=== PATIENT | female | born 1940 | race Caucasian/White ===

== ENCOUNTER 2017-01-02 20:41 | Emergency (ER) | payer MEDICARE, OTHER ==
[2017-01-02 20:51] VITALS: BP 132/89
[2017-01-02] MEDS ORDERED: Bacitracin/Neomycin/Polymyxin B Oint 0.9 GM U/D Packet ONE (21:17)
--- NOTE | 2017-01-02 21:27 | EDM.PDOC ---
ED HPI GENERAL MEDICAL PROBLEM - General Stated Complaint: S/P FALL, RT SHOULDER AND FOREHEAD PAIN Time Seen by Provider: 01/02/17 21:09 Source of Information: Reports: Patient History Limitations: Reports: No Limitations - History of Present Illness INITIAL COMMENTS - FREE TEXT/NARRATIVE: Patient presents with right shoulder pain and forehead abrasion after falling at home. She tells me she was had gotten up from sitting and was walking into her kitchen when she stooped to apple picker a string lying on the floor. She fell forward and hit her head and right shoulder on the floor. The shoulder is all that is bothering her right now. She denies any neck pain, headache, vomiting, vision changes or LOC. She takes coumadin for A Fib and had INR checked yesterday at 2.5. 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 - Related Data Allergies Allergy/AdvReac Type Severity Reaction Status Date / Time No Known Drug Allergies Allergy Cannot Verified 01/02/17 20:44 Remember Home Meds: Home Meds Bumetanide [Bumetanide] 0.5 mg PO BID 01/02/17 [History] Carvedilol [Carvedilol] 9.375 mg PO BID 01/02/17 [History] Ecalciferol 600-500 Mg-Units 1 tab PO DAILY 01/02/17 [History] Insulin Glarg,Human.Rec.Analog [LantUS Solostar] 01/02/17 [History] Lisinopril [Lisinopril] 5 mg PO DAILY 01/02/17 [History] Metolazone [Metolazone] 01/02/17 [History] Omeprazole [Omeprazole] 20 mg PO DAILY 01/02/17 [History] Simvastatin [Zocor] 40 mg PO BEDTIME 01/02/17 [History] Warfarin Sodium [Warfarin Sodium] 01/02/17 [History] Review of Systems - Review of Systems Review Of Systems: See Below Constitutional: Denies: Fever, Weakness Eyes: Denies: Vision Change Ears: Denies: Dizziness Nose: Denies: Epistaxis, Bloody Discharge, Serosanguinous Discharge Mouth/Throat: Denies: Bleeding, Muffled Voice Respiratory: Denies: Shortness of Breath, Cough Cardiovascular: Reports: Irregular Heart Rate. Denies: Chest Pain, Lightheadedness, Syncope GI/Abdominal: Denies: Abdominal Pain, Nausea, Vomiting Genitourinary: Denies: Incontinence Musculoskeletal: Reports: Shoulder Pain. Denies: Neck Pain, Arm Pain, Back Pain , Leg Pain, Foot Pain Skin: Denies: Cyanosis, Jaundice, Mottled, Pallor, Diaphoresis Neurological: Denies: Confusion, Dizziness, Headache, Seizure, Syncope, Trouble Speaking Psychiatric: Denies: Confusion ED EXAM, GENERAL - Physical Exam Exam: See Below Exam Limited By: No Limitations General Appearance: Alert, WD/WN, No Apparent Distress Eye Exam: Bilateral Eye: EOMI, Normal Inspection, PERRL Ears: Normal External Exam, Normal Canal, Hearing Grossly Normal, Normal TMs Nose: Normal Inspection, No Blood. No: Nasal Deformity Throat/Mouth: Normal Inspection, Normal Lips, Normal Teeth, Normal Oropharynx, Normal Voice, No Airway Compromise Head: Normocephalic, Other (mild abrasion on forehead just superior to right eyebrow). No: Facial Swelling Neck: Normal Inspection, Supple, Non-Tender, Full Range of Motion. No: Tender Lateral, Tender Midline Respiratory/Chest: No Respiratory Distress, Lungs Clear, Normal Breath Sounds Extremities: Other (Extremities all negative except for right shoulder. Contusion and small skin tear of superolateral right shoulder with mild ecchymosis. No evidence of dislocation or deformity. Painful to ROM of humerus more than about 10 degrees. No clavicle tenderness or deformity. Elbow has full pain-free ROM with full pronation/supination of wrist.) Neurological: Alert, Oriented, CN II-XII Intact, Normal Cognition, No Motor/ Sensory Deficits Psychiatric: Normal Affect, Normal Mood Skin Exam: Warm, Dry, Intact, Normal Color, No Rash Course - Vital Signs Last Recorded V/S: Last Vital Signs Temp 97 F 01/02/17 20:45 Pulse 92 01/02/17 20:45 Resp 20 01/02/17 20:45 BP 132/89 01/02/17 20:45 Pulse Ox 98 01/02/17 20:45 - Orders/Labs/Meds Orders: Active Orders 24 hr Category Date Time Status Head wo Cont [CT] Stat Exams 01/02/17 20:46 Ordered Shoulder Comp Rt [CR] Stat Exams 01/02/17 20:45 Ordered Meds: Medications Discontinued Medications Generic Name Dose Route Start Last Admin Trade Name Freq PRN Reason Stop Dose Admin Neomycin/Polymyxin/Bacitracin Confirm 01/02/17 21:17 Triple Antibiotic Oint Administered 01/02/17 21:18 Dose 1 each .ROUTE .STK-MED ONE - Re-Assessments/Exams Free Text/Narrative Re-Assessment/Exam: 01/02/17 22:[address] is negative. Xray shows a sub-glenoid scapular fracture with the fracture line running into the scapular body. This appears quite stable and we placed patient's right arm in a sling and instructed her to see orthopedics in 1 -2 days. She can call her PCP tomorrow and decide if she wants to go with [facility]. She does want to go to [place]. Discussed findings and plan with patient and she is discharged in stable condition. Departure - Departure Time of Disposition: 22:23 Disposition: Home, Self-Care 01 Condition: Good Clinical Impression: Closed right scapular fracture Qualifiers: Encounter type: initial encounter Scapula location: unspecified part of scapula Qualified Code(s): S42.101A - Fracture of unspecified part of scapula, right shoulder, initial encounter for closed fracture Contusion of forehead Qualifiers: Encounter type: initial encounter Qualified Code(s): S00.83XA - Contusion of other part of head, initial encounter - Discharge Information Referrals: Mag Holland, WATER QUALITY TESTER [Primary Care Provider] - Additional Instructions: 1. Call your PCP tomorrow to discuss with her who to see for orthopedics. In [place] there is the option of [facility] or [facility]. The [facility]ist does come to [place] 1-2x/month for clinic. 2. Keep your arm in the sling except for showers. 3. Follow up with orthopedics in 1-2 days. 4. Use Tylenol 500 mg every hours as needed for pain. - My Orders Last 24 Hours: My Active Orders 01/02/17 20:45 Shoulder Comp Rt [CR] Stat 01/02/17 20:46 Head wo Cont [CT] Stat - Assessment/Plan Last 24 Hours: My Active Orders 01/02/17 20:45 Shoulder Comp Rt [CR] Stat 01/02/17 20:46 Head wo Cont [CT] Stat
== END 2017-01-02 22:35 | disposition home or self-care (01) ==
LOC: KA.ED 20:41
DX: S42.141A Displaced fracture of glenoid cavity of scapula, right shoulder, initial encounter for closed fracture (principal); S42.111A Displaced fracture of body of scapula, right shoulder, initial encounter for closed fracture; S00.83XA Contusion of other part of head, initial encounter; I48.91 Unspecified atrial fibrillation; Z79.4 Long term (current) use of insulin; W22.01XA Walked into wall, initial encounter; Y92.000 Kitchen of unspecified non-institutional (private) residence as the place of occurrence of the external cause
CPT/HCPCS: 70450; 73030-RT; 99284

== ENCOUNTER 2020-02-14 20:21 | Emergency (ER) | payer MEDICARE, OTHER ==
--- NOTE | 2020-02-14 21:21 | EDM.PDOC ---
ED HPI GENERAL MEDICAL PROBLEM - General Chief Complaint: General Stated Complaint: RIGHT SIDED WEAKNESS Time Seen by Provider: 02/14/20 21:00 Source of Information: Reports: Patient, EMS History Limitations: Reports: No Limitations - History of Present Illness INITIAL COMMENTS - FREE TEXT/NARRATIVE: 79-year-old female presents emergency room due to her sliding out of her chair earlier this evening. She was on the floor for at least 30 minutes possibly up to 45 minutes. EMS was called as she was unable to get up with the help of her . She denies any significant pain. She has no aphasic symptoms no difficulty with speech no weakness in her upper extremities. When she stood up she had some difficulty with her ambulation on her right leg likely due from the time that she was laying in on the floor. She denies any current numbness or tingling in her leg no back pain or weakness no history of spinal stenosis complaints. No loss of bowel or bladder control. It was recommended that she be brought in for further evaluation. On exam she is alert and cooperative she answers all questions appropriately there is no aphasic symptoms. I examined her lower extremities and did a gentle roll sign but no pain or discomfort of her right hip or left hip. She has no pelvic pain I was able to set her up in the nursing staff walked her to the bathroom without difficulty. She does not feel like she is unbalanced or dizzy. Onset: Today Onset Date: 02/14/20 Onset Time: 18:45 Duration: Resolved Prior to Arrival Location: Reports: Lower Extremity, Right, Generalized Severity: Mild Improves with: Reports: Rest Worsens with: Reports: None Associated Symptoms: Reports: No Other Symptoms - Related Data Allergies Allergy/AdvReac Type Severity Reaction Status Date / Time No Known Drug Allergies Allergy Cannot Verified 02/14/20 21:01 Remember Home Meds: Home Meds Bumetanide 1 mg PO BID 01/02/17 [History] Insulin Glarg,Human.Rec.Analog [LantUS Solostar] 34 units SQ BEDTIME 01/02/17 [History] Omeprazole 20 mg PO DAILY 01/02/17 [History] Simvastatin [Zocor] 40 mg PO BEDTIME 01/02/17 [History] Warfarin Sodium 2.5 mg PO ASDIRECTED 01/02/17 [History] carvediloL [Carvedilol] 9.375 mg PO BID 01/02/17 [History] metFORMIN HCl [Metformin HCl] 1,000 mg PO DAILY 01/02/17 [History] metOLazone [Metolazone] 1.25 mg PO ASDIRECTED 01/02/17 [History] Calcium Carbonate/Vitamin D3 [Calcium 600-Vit D3 500 Softgel] 1 tab PO DAILY 03/08/18 [History] Cyanocobalamin (Vitamin B-12) [B-12] 1,000 mcg PO Q48H 03/08/18 [History] Ferrous Fumarate/Vitamin C [Vitron-C] 1 tab PO Q48H 03/08/18 [History] Letrozole [Femara] 2.5 mg PO DAILY 03/08/18 [History] allopurinoL [Zyloprim] 200 mg PO DAILY 03/08/18 [History] Potassium Chloride 10 meq PO DAILY 04/08/18 [History] calcitrioL [Calcitriol] 0.25 mcg PO Q48H 04/08/18 [History] Past Medical History HEENT History: Reports: Cataract, Impaired Vision Cardiovascular History: Reports: Afib, Heart Failure, High Cholesterol, Hypertension, SOB on Exertion Respiratory History: Reports: Other (See Below) Other Respiratory History: SOB with going up and down stairs Gastrointestinal History: Reports: GERD Genitourinary History: Reports: Other (See Below) Other Genitourinary History: dribbling 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: Endocrine/Metabolic History: Reports: IDDM, Obesity/BMI 30+ Hematologic History: Reports: B12 Deficiency Oncologic (Cancer) History: Reports: Breast, Other (See Below) Other Oncologic History: lumpectomy with radiation - Infectious Disease History Infectious Disease History: Reports: Chicken Pox, Measles - Past Surgical History HEENT Surgical History: Reports: Cataract Surgery Cardiovascular Surgical History: Reports: None Respiratory Surgical History: Reports: None GI Surgical History: Reports: Colonoscopy Female Surgical History: Reports: Breast Biopsy, Hysterectomy Endocrine Surgical History: Reports: None Oncologic Surgical History: Reports: Lumpectomy Social & Family History - Caffeine Use Caffeine Use: Reports: Coffee ED ROS GENERAL - Review of Systems Review Of Systems: See Below Constitutional: Reports: No Symptoms HEENT: Reports: No Symptoms Respiratory: Reports: No Symptoms Cardiovascular: Reports: No Symptoms Endocrine: Reports: No Symptoms GI/Abdominal: Reports: No Symptoms : Reports: No Symptoms Musculoskeletal: Reports: No Symptoms Skin: Reports: No Symptoms Neurological: Reports: No Symptoms Psychiatric: Reports: No Symptoms Hematologic/Lymphatic: Reports: No Symptoms Immunologic: Reports: No Symptoms ED EXAM, GENERAL - Physical Exam Exam: See Below Exam Limited By: No Limitations General Appearance: Alert, WD/WN, No Apparent Distress, Obese Eye Exam: Bilateral Eye: EOMI, PERRL (equal) Ears: Hearing Grossly Normal Nose: Normal Inspection Throat/Mouth: Normal Inspection, Normal Oropharynx, Normal Voice, No Airway Compromise Head: Atraumatic, Normocephalic Neck: Normal Inspection, Supple, Non-Tender, Full Range of Motion Respiratory/Chest: No Respiratory Distress, Lungs Clear, Normal Breath Sounds, No Accessory Muscle Use Cardiovascular: Normal Peripheral Pulses, Regular Rate, Rhythm Peripheral Pulses: 1+: Dorsalis Pedis (L), Dorsalis Pedis (R) GI/Abdominal: Soft, Non-Tender Back Exam: Normal Inspection, Full Range of Motion Extremities: Normal Inspection, Normal Range of Motion, Non-Tender, Normal Capillary Refill Neurological: Alert, Oriented, Normal Cognition, Normal Gait, No Motor/Sensory Deficits Psychiatric: Normal Affect, Normal Mood Skin Exam: Warm, Dry, Intact, Normal Color, No Rash Lymphatic: No Adenopathy Course - Vital Signs Last Recorded V/S: Last Vital Signs Temp 97.9 F 02/14/20 20:26 Pulse 81 02/14/20 20:26 Resp 21 H 02/14/20 20:26 BP 131/61 02/14/20 20:26 Pulse Ox 93 L 02/14/20 20:26 - Re-Assessments/Exams Free Text/Narrative Re-Assessment/Exam: 02/14/20 21:22 Was able to ambulate to the bathroom with standby assistance of 2. She reported no weakness no imbalance problems no difficulty with her walking. She was comfortable and steady Departure - Departure Time of Disposition: 21:23 Disposition: Home, Self-Care 01 Condition: Good Clinical Impression: Weakness of right leg - Discharge Information Instructions: Weakness, [id number] Referrals: Maggie Holland ASSISTANT PRESS OPERATOR [Primary Care Provider] - Forms: ED Department Discharge Additional Instructions: 1. Activities as tolerated. 2. Follow-up with your primary care for routine checkup Sepsis Event Note (ED) - Evaluation Sepsis Screening Result: No Definite Risk - Focused Exam Vital Signs: Vital Signs Temp Pulse Resp BP Pulse Ox 02/14/20 20:26 97.9 F 81 21 H 131/61 93 L - Assessment/Plan Assessment:: His weakness in right leg after shortening length of him being on the floor prior to being helped up. Weakness is now resolved Plan: 1. Activities as tolerated. 2. Follow-up with your primary care for routine checkup
[2020-02-14 22:22] VITALS: BP 134/68; PULSE 109
== END 2020-02-14 21:25 | disposition home or self-care (01) ==
LOC: KA.ED 20:21
DX: R53.1 Weakness (principal); I11.0 Hypertensive heart disease with heart failure; I50.9 Heart failure, unspecified; I48.91 Unspecified atrial fibrillation; K21.9 Gastro-esophageal reflux disease without esophagitis; E66.9 Obesity, unspecified; E11.9 Type 2 diabetes mellitus without complications; Z79.4 Long term (current) use of insulin; Z90.710 Acquired absence of both cervix and uterus; Z79.899 Other long term (current) drug therapy
CPT/HCPCS: 99284; 99285

== ENCOUNTER 2020-03-29 20:45 | Inpatient (IN) | payer MEDICARE, OTHER ==
--- NOTE | 2020-03-29 21:00 | EDM.PDOC ---
ED HPI GENERAL MEDICAL PROBLEM - General Chief Complaint: General Stated Complaint: weakness, numb legs/feet, SOB Time Seen by Provider: 03/29/20 20:46 Source of Information: Reports: Patient, EMS - History of Present Illness INITIAL COMMENTS - FREE TEXT/NARRATIVE: Alona, 79-year-old female, presents via ambulance tonight after she called secondary of breathing issues as well as weakness. She was notified today of negative COVID-19 testing with result finalizing on the . She denies any activity, intake, nor missing any medications that may have precipitated her rapid heart rate. She denies chest pain but states it is more difficult to get her breath and she does realize her heart is beating fast. She states this is happened in the past but this is a different sensation at this time. She has had fevers at home as well as fever last week that precipitated the COVID-19 test. Onset: Today, Sudden - Related Data Allergies Allergy/AdvReac Type Severity Reaction Status Date / Time No Known Drug Allergies Allergy Cannot Verified 03/29/20 23:05 Remember Home Meds: Home Meds Bumetanide 1 mg PO ASDIRECTED 01/02/17 [History] Omeprazole 20 mg PO DAILY 01/02/17 [History] Simvastatin [Zocor] 40 mg PO BEDTIME 01/02/17 [History] Warfarin Sodium 2.5 mg PO ASDIRECTED 01/02/17 [History] carvediloL [Carvedilol] 9.375 mg PO BIDMEALS 01/02/17 [History] metOLazone [Metolazone] 1.25 mg PO ASDIRECTED 01/02/17 [History] Calcium Carbonate/Vitamin D3 [Calcium 600-Vit D3 500 Softgel] 1 tab PO DAILY 03/08/18 [History] Cyanocobalamin (Vitamin B-12) [B-12] 1,000 mcg PO Q48H 03/08/18 [History] Ferrous Fumarate/Vitamin C [Vitron-C] 1 tab PO Q48H 03/08/18 [History] allopurinoL [Zyloprim] 200 mg PO DAILY 03/08/18 [History] Insulin Glargine,Hum.Rec.Anlog [Basaglar Kwikpen U-100] 26 units SQ BEDTIME 02/14/20 [History] metFORMIN [Glucophage XR] 1,500 mg PO DAILY 02/14/20 [History] Ferrous Sulfate [Ferosul] 325 mg PO BID 03/29/20 [History] Past Medical History HEENT History: Reports: Cataract, Impaired Vision Cardiovascular History: Reports: Afib, Heart Failure, High Cholesterol, Hypertension, SOB on Exertion Respiratory History: Reports: Other (See Below) Other Respiratory History: SOB with going up and down stairs Gastrointestinal History: Reports: GERD Genitourinary History: Reports: Other (See Below) Other Genitourinary History: dribbling 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: Endocrine/Metabolic History: Reports: IDDM, Obesity/BMI 30+ Hematologic History: Reports: B12 Deficiency Oncologic (Cancer) History: Reports: Breast, Other (See Below) Other Oncologic History: lumpectomy with radiation - Infectious Disease History Infectious Disease History: Reports: Chicken Pox, Measles - Past Surgical History HEENT Surgical History: Reports: Cataract Surgery Cardiovascular Surgical History: Reports: None Respiratory Surgical History: Reports: None GI Surgical History: Reports: Colonoscopy Female Surgical History: Reports: Breast Biopsy, Hysterectomy Endocrine Surgical History: Reports: None Oncologic Surgical History: Reports: Lumpectomy - Past Imaging History Past Imaging History: Reports: Cardiac Echo, Xray Social & Family History - Family History Family Medical History: No Pertinent Family History - Caffeine Use Caffeine Use: Reports: Coffee ED ROS GENERAL - Review of Systems Review Of Systems: Comprehensive ROS is negative, except as noted in HPI. ED EXAM, GENERAL - Physical Exam Exam: See Below Free Text/Narrative:: Alert, oriented, in no distress visiting freely but speaks of difficulty catching her breath. Heart rate via monitor in the 150s with radial pulse correlating on most beats. HEENT is negative discharge or deformity. PERRLA no icterus no injection. [place] moist mucous membranes Neck soft supple no lymphadenopathy no JVD. Breath sounds are diminished bases with no wheezes no crackles noted. Cardiac is tachycardic, I do not appreciate any murmur, consistent with atrial fibrillation with RVR. Abdomen is soft bowel sounds are present. There is +1 edema to the lower extremities skin is warm and dry she moves her extremities upon command. There is no tenderness to the calfs or legs. #1 Interpretation EKG Date: 03/29/20 Time: 21:03 Rhythm: A-Fib Rate (Beats/Min): 166 QRS: RBBB ST-T: Normal QT: Normal Comparison: Change From Previous EKG (RVR) #2 Interpretation EKG Date: 03/29/20 Time: 21:42 Rhythm: A-Fib Rate (Beats/Min): 118 P-Wave: Absent QRS: RBBB ST-T: Normal QT: Normal Comparison: Change From Previous EKG (rate has slowed after cardizem) Course - Vital Signs Last Recorded V/S: Last Vital Signs Temp 39.6 C H 03/29/20 20:56 Pulse 180 H 03/29/20 20:55 Resp 26 H 03/29/20 20:55 BP 123/68 03/29/20 20:55 Pulse Ox 91 L 03/29/20 20:55 - Orders/Labs/Meds Orders: Active Orders 24 hr Category Date Time Status EKG Documentation Completion [RC] ASDIRECTED Care 03/29/20 20:58 Active EKG Documentation Completion [RC] ASDIRECTED Care 03/29/20 21:38 Ordered Peripheral IV Care [RC] . DIRECTED Care 03/29/20 21:11 Active Chest 1V Frontal [CR] Stat Exams 03/29/20 20:57 Ordered Chest w Cont [CT] Stat Exams 03/29/20 22:25 Ordered CORONAVIRUS COVID-19 RAPID [MOLEC] Stat Lab 03/29/20 23:03 Ordered CULTURE BLOOD [BC] Stat Lab 03/29/20 20:58 Ordered CULTURE BLOOD [BC] Stat Lab 03/29/20 20:58 Ordered Diltiazem 125 MG in NS 125 ML @ 5 MG/HR (100ml) Med 03/29/20 23:00 Ordered Diltiazem 125 mg Sodium Chloride 0.9% [Normal Saline] 100 ml IV TITRATE Sodium Chloride 0.9% [Normal Saline] 100 ml Med 03/29/20 23:15 Active IV ASDIRECTED Sodium Chloride 0.9% [Saline Flush] Med 03/29/20 21:11 Active 10 ml FLUSH Q8HR PRN Blood Culture x2 Reflex Set [OM.PC] Stat Oth 03/29/20 20:58 Ordered Peripheral IV Insertion Adult [OM.PC] Routine Oth 03/29/20 21:11 Ordered Code Status [Resuscitation Status] Stat Resus Stat 03/29/20 21:00 Ordered EKG 12 Lead [EK] Urgent Ther 03/29/20 20:57 Ordered EKG 12 Lead [EK] Urgent Ther 03/29/20 21:37 Ordered Medication Orders Diltiazem HCl 125 mg/ Sodium (Chloride) 125 mls @ 5 mls/hr IV TITRATE KIT Last Admin: 03/29/20 23:33 Dose: 5 mg/hr, 5 mls/hr Documented by: DAVID Sodium Chloride (Normal Saline) 100 mls @ 200 mls/hr IV ASDIRECTED KIT Last Admin: 03/29/20 23:00 Dose: 200 mls/hr Documented by: YVON Sodium Chloride (Saline Flush) 10 ml FLUSH Q8HR PRN PRN Reason: keep vein open Last Admin: 03/29/20 21:15 Dose: 10 ml Documented by: DAVID Labs: Laboratory Tests 03/29/20 03/29/20 03/29/20 Range/Units 21:15 21:15 21:15 WBC (5.00-10.00) 10^3/uL RBC (3.80-5.50) 10^6/uL Hgb (12.0-16.0) g/dL Hct (37.0-47.0) % MCV (82.0-92.0) fL MCH (27.0-31.0) pg MCHC (32.0-36.0) g/dL RDW (11.5-14.5) % Plt Count (150-400) 10^3/uL MPV (7.4-10.4) fL Add Manual Diff Neutrophils % (Manual) (50-70) % Band Neutrophils % (4-12) % Lymphocytes % (Manual) (20-40) % Monocytes % (Manual) (2-8) % Absolute Neutrophils Band Neutrophils # Lymphocytes # (Manual) Monocytes # (Manual) PT (9.2-11.2) SEC INR (0.9-1.1) APTT (22.8-31.4) SEC D-Dimer, Quantitative 2410 H (<400) ng/mL Sodium 132 L (136-145) mmol/L Potassium 3.7 (3.3-5.3) mmol/L Chloride 94 L (98-115) mmol/L Carbon Dioxide 25.8 (21.0-32.0) mmol/L Anion Gap 15.9 H (5-15) mmol/L BUN 25 (6-25) mg/dL Creatinine 0.87 (0.51-1.17) mg/dL Est Cr Clr Drug Dosing TNP Estimated GFR (MDRD) > 60 mL/min Glucose 143 H (75 - 99) mg/dL Lactic Acid 1.5 (0.4-2.0) mmol/L Calcium 9.3 (8.7-10.3) mg/dL Total Bilirubin 1.2 H (0.2-1.0) mg/dL AST 23 (15-37) U/L ALT 26 (12-78) U/L Alkaline Phosphatase 140 H (46-116) IU/L Creatine Kinase 28 (26-276) U/L CK-MB (CK-2) < 0.50 (0.00-4.30) ng/mL Troponin I 0.07 (0.00-0.070) ng/mL B-Natriuretic Peptide 352 H (0-100) pg/mL Total Protein 6.3 L (6.4-8.2) g/dL Albumin 3.04 (3.00-4.80) g/dL SARS CoV-2 RNA Rapid FERNANDO (NEGATIVE) 03/29/20 03/29/20 03/29/20 Range/Units 21:15 21:15 21:15 WBC 12.03 H (5.00-10.00) 10^3/uL RBC 4.22 (3.80-5.50) 10^6/uL Hgb 12.5 (12.0-16.0) g/dL Hct 38.5 (37.0-47.0) % MCV 91.2 (82.0-92.0) fL MCH 29.6 (27.0-31.0) pg MCHC 32.5 (32.0-36.0) g/dL RDW 15.9 H (11.5-14.5) % Plt Count 317 (150-400) 10^3/uL MPV 9.9 (7.4-10.4) fL Add Manual Diff Yes Neutrophils % (Manual) 62 (50-70) % Band Neutrophils % 31 H (4-12) % Lymphocytes % (Manual) 4 L (20-40) % Monocytes % (Manual) 3 (2-8) % Absolute Neutrophils 7.46 Band Neutrophils # 3.73 Lymphocytes # (Manual) 0.48 Monocytes # (Manual) 0.36 PT 34.9 H (9.2-11.2) SEC INR 3.6 H (0.9-1.1) APTT 43.5 H (22.8-31.4) SEC D-Dimer, Quantitative (<400) ng/mL Sodium (136-145) mmol/L Potassium (3.3-5.3) mmol/L Chloride (98-115) mmol/L Carbon Dioxide (21.0-32.0) mmol/L Anion Gap (5-15) mmol/L BUN (6-25) mg/dL Creatinine (0.51-1.17) mg/dL Est Cr Clr Drug Dosing Estimated GFR (MDRD) mL/min Glucose (75 - 99) mg/dL Lactic Acid (0.4-2.0) mmol/L Calcium (8.7-10.3) mg/dL Total Bilirubin (0.2-1.0) mg/dL AST (15-37) U/L ALT (12-78) U/L Alkaline Phosphatase (46-116) IU/L Creatine Kinase (26-276) U/L CK-MB (CK-2) (0.00-4.30) ng/mL Troponin I (0.00-0.070) ng/mL B-Natriuretic Peptide (0-100) pg/mL Total Protein (6.4-8.2) g/dL Albumin (3.00-4.80) g/dL SARS CoV-2 RNA Rapid FERNANDO (NEGATIVE) 03/29/20 Range/Units 22:40 WBC (5.00-10.00) 10^3/uL RBC (3.80-5.50) 10^6/uL Hgb (12.0-16.0) g/dL Hct (37.0-47.0) % MCV (82.0-92.0) fL MCH (27.0-31.0) pg MCHC (32.0-36.0) g/dL RDW (11.5-14.5) % Plt Count (150-400) 10^3/uL MPV (7.4-10.4) fL Add Manual Diff Neutrophils % (Manual) (50-70) % Band Neutrophils % (4-12) % Lymphocytes % (Manual) (20-40) % Monocytes % (Manual) (2-8) % Absolute Neutrophils Band Neutrophils # Lymphocytes # (Manual) Monocytes # (Manual) PT (9.2-11.2) SEC INR (0.9-1.1) APTT (22.8-31.4) SEC D-Dimer, Quantitative (<400) ng/mL Sodium (136-145) mmol/L Potassium (3.3-5.3) mmol/L Chloride (98-115) mmol/L Carbon Dioxide (21.0-32.0) mmol/L Anion Gap (5-15) mmol/L BUN (6-25) mg/dL Creatinine (0.51-1.17) mg/dL Est Cr Clr Drug Dosing Estimated GFR (MDRD) mL/min Glucose (75 - 99) mg/dL Lactic Acid (0.4-2.0) mmol/L Calcium (8.7-10.3) mg/dL Total Bilirubin (0.2-1.0) mg/dL AST (15-37) U/L ALT (12-78) U/L Alkaline Phosphatase (46-116) IU/L Creatine Kinase (26-276) U/L CK-MB (CK-2) (0.00-4.30) ng/mL Troponin I (0.00-0.070) ng/mL B-Natriuretic Peptide (0-100) pg/mL Total Protein (6.4-8.2) g/dL Albumin (3.00-4.80) g/dL SARS CoV-2 RNA Rapid FERNANDO Negative (NEGATIVE) Meds: Medications Generic Name Dose Route Start Last Admin Trade Name Freq PRN Reason Stop Dose Admin Diltiazem HCl 125 mg/ Sodium 125 mls @ 5 mls/hr 03/29/20 23:00 03/29/20 23:33 Chloride IV 5 mg/hr TITRATE KIT 5 mls/hr Administration 5 MG/HR Sodium Chloride 100 mls @ 200 mls/hr 03/29/20 23:15 03/29/20 23:00 Normal Saline IV 200 mls/hr ASDIRECTED KIT Administration Sodium Chloride 10 ml 03/29/20 21:11 03/29/20 21:15 Saline Flush FLUSH 10 ml Q8HR PRN Administration keep vein open Discontinued Medications Generic Name Dose Route Start Last Admin Trade Name Vandana PRN Reason Stop Dose Admin Diltiazem HCl 20 mg 03/29/20 21:10 03/29/20 21:30 Diltiazem IVPUSH 03/29/20 21:11 20 mg ONETIME ONE Administration Iopamidol 100 ml 03/29/20 23:14 03/29/20 23:00 Isovue-370 (76%) IV 03/29/20 23:15 75 ml ONETIME ONE Administration - Re-Assessments/Exams Free Text/Narrative Re-Assessment/Exam: 03/29/20 21:38 20 mg IV Cardizem given with RVR now in the 100-110 range. 03/29/20 22:02 Feels better blood pressure on lower limits 111/55 making me hesitant to implement Cardizem drip. I discussed with Alona past history she does not remember ever having to be on medication to control her atrial fibrillation. Review of the [facility] chart I do not see that she spoke with cardiology as far as I am able to go back in the system. 03/29/20 22:56 CT been performed secondary of her shortness of breath with sudden onset with a significantly elevated D-dimer. It is noted her INR tonight is near double of where it was a month ago with [facility] record showing stability. Questioning her medication dosing leaves both RN and myself questioning her compliance is which she states to us this evening does not match what is in her last visits in the [facility] 1 chart link. Also noted that she is self adjust her diuretic previously and after weight gain admitted at her clinic visit, she was back to her bases as ordered. When questioned this evening she states she is unsure on some of her medication dosing. With her heart rate increasing sporadically and blood pressure maintaining in a normotensive readings, we will institute a Cardizem drip to see if we can get her baseline heart rate to remain at 100 or less. Free Text/Narrative Re-Assessment/Exam: 03/29/20 23:57 I discussed with Alona the admission secondary of her symptoms this evening. She is in agreements with this will be transferred to the floor per cart, with contact with Dr. Foote for further orders. Departure - Departure Time of Disposition: 23:52 Disposition: Admitted As Inpatient 68 Condition: Fair Clinical Impression: Atrial fibrillation with rapid ventricular response, COVID-19 ruled out by laboratory testing, Non compliance w medication regimen, Elevated brain natriuretic peptide (BNP) level, SOB (shortness of breath), Elevated d-dimer - Discharge Information *PRESCRIPTION DRUG MONITORING PROGRAM REVIEWED*: Not Applicable *COPY OF PRESCRIPTION DRUG MONITORING REPORT IN PATIENT ALBA: Not Applicable Referrals: Maggie Holland NP [Primary Care Provider] - Valerie Foote MD [Physician] - Forms: ED Department Discharge Additional Instructions: Admission to acute status A-fib RVR with SOB, Elevated D Dimer, Sepsis Event Note (ED) - Focused Exam Vital Signs: Vital Signs Temp Temp Pulse Resp BP Pulse Ox 03/29/20 20:56 39.6 C H 03/29/20 20:55 37.0 C 180 H 26 H 123/68 91 L ED Communication - ED Communication Date/Time Date: 03/29/20 Time Called: 23:45 - Discussed Case With (1) Discussed Case With (1): Admitting Provider Person/s Notified (1): Valerie Foote - Discussed Case With (2) Discussed Case With (2): Admitting Provider - Conversation Summary Admitting Provider Agreed to Patient's Admission: Yes - Problem List & Annotations (1) Atrial fibrillation with rapid ventricular response SNOMED Code(s): 299455556481723 Code(s): I48.91 - UNSPECIFIED ATRIAL FIBRILLATION Status: Chronic Priority: High (2) SOB (shortness of breath) SNOMED Code(s): 012358800 Code(s): R06.02 - SHORTNESS OF BREATH Status: Acute Priority: High (3) Elevated d-dimer SNOMED Code(s): 089126916 Code(s): R79.89 - OTHER SPECIFIED ABNORMAL FINDINGS OF BLOOD CHEMISTRY Status: Acute Priority: High (4) Elevated brain natriuretic peptide (BNP) level SNOMED Code(s): 953184768, 407024195 Code(s): R79.89 - OTHER SPECIFIED ABNORMAL FINDINGS OF BLOOD CHEMISTRY Status: Acute Priority: High (5) Non compliance w medication regimen SNOMED Code(s): 879342086 Code(s): Z91.14 - PATIENT'S OTHER NONCOMPLIANCE WITH MEDICATION REGIMEN Status: Chronic Priority: High (6) COVID-19 ruled out by laboratory testing SNOMED Code(s): 285108413, 806853161 Code(s): Z03.818 - ENCNTR FOR OBS FOR SUSP EXPSR TO OTH BIOLG AGENTS RULED OUT Status: Acute Priority: High (7) Electrolyte abnormality SNOMED Code(s): 962503087 Code(s): E87.8 - OTH DISORDERS OF ELECTROLYTE AND FLUID BALANCE, NEC Status: Chronic Priority: Medium - Problem List Review Problem List Initiated/Reviewed/Updated: Yes - My Orders Last 24 Hours: My Active Orders 03/29/20 20:57 Chest 1V Frontal [CR] Stat EKG 12 Lead [EK] Urgent 03/29/20 20:58 EKG Documentation Completion [RC] ASDIRECTED CULTURE BLOOD [BC] Stat CULTURE BLOOD [BC] Stat Blood Culture x2 Reflex Set [OM.PC] Stat 03/29/20 21:00 Code Status [Resuscitation Status] Stat 03/29/20 21:11 Peripheral IV Care [RC] . DIRECTED Sodium Chloride 0.9% [Saline Flush] 10 ml FLUSH Q8HR PRN Peripheral IV Insertion Adult [OM.PC] Routine 03/29/20 21:37 EKG 12 Lead [EK] Urgent 03/29/20 21:38 EKG Documentation Completion [RC] ASDIRECTED 03/29/20 22:25 Chest w Cont [CT] Stat 03/29/20 23:00 Diltiazem 125 MG in NS 125 ML @ 5 MG/HR (100ml) Diltiazem 125 mg Sodium Chloride 0.9% [Normal Saline] 100 ml IV TITRATE 03/29/20 23:03 CORONAVIRUS COVID-19 RAPID [MOLEC] Stat 03/29/20 23:15 Sodium Chloride 0.9% [Normal Saline] 100 ml IV ASDIRECTED - Assessment/Plan Last 24 Hours: My Active Orders 03/29/20 20:57 Chest 1V Frontal [CR] Stat EKG 12 Lead [EK] Urgent 03/29/20 20:58 EKG Documentation Completion [RC] ASDIRECTED CULTURE BLOOD [BC] Stat CULTURE BLOOD [BC] Stat Blood Culture x2 Reflex Set [OM.PC] Stat 03/29/20 21:00 Code Status [Resuscitation Status] Stat 03/29/20 21:11 Peripheral IV Care [RC] . DIRECTED Sodium Chloride 0.9% [Saline Flush] 10 ml FLUSH Q8HR PRN Peripheral IV Insertion Adult [OM.PC] Routine 03/29/20 21:37 EKG 12 Lead [EK] Urgent 03/29/20 21:38 EKG Documentation Completion [RC] ASDIRECTED 03/29/20 22:25 Chest w Cont [CT] Stat 03/29/20 23:00 Diltiazem 125 MG in NS 125 ML @ 5 MG/HR (100ml) Diltiazem 125 mg Sodium Chloride 0.9% [Normal Saline] 100 ml IV TITRATE 03/29/20 23:03 CORONAVIRUS COVID-19 RAPID [MOLEC] Stat 03/29/20 23:15 Sodium Chloride 0.9% [Normal Saline] 100 ml IV ASDIRECTED Plan: Admission to acute status A-fib RVR with SOB, Elevated D Dimer,
[2020-03-29] MEDS ORDERED: Diltiazem 25 MG/5 ML SDV IVPUSH ONE (21:10)
[2020-03-29] MEDS ORDERED: Sodium Chloride 0.9% 10 ML Syringe FLUSH PRN (21:11)
[2020-03-29 22:21] LABS: ANION GAP 15.9 mmol/L (5-15); CHLORIDE,CL 94 mmol/L (98-115); SODIUM,NA 132 mmol/L (136-145)
[2020-03-29] MEDS ORDERED: Diltiazem 125 MG in Sodium Chloride 0.9% 100 ML IV SCH (23:00)
[2020-03-29] MEDS ORDERED: Iopamidol 755 Mg/ML 100 ML Bottle IV ONE (23:14)
[2020-03-29] MEDS ORDERED: Sodium Chloride 0.9% 100 ML IV SCH (23:15)
[2020-03-30] MEDS ORDERED: Acetaminophen 325 MG Tab PO PRN (01:10)
[2020-03-30] MEDS ORDERED: Diltiazem 25 MG/5 ML SDV IVPUSH ONE (01:19)
[2020-03-30] MEDS: Ondansetron 4 MG/2 ML SDV IVPUSH PRN ×2 (01:31→06:22)
--- NOTE | 2020-03-30 08:17 | CR ---
[id number] RAD/RAD Chest PA or AP 1V EXAM: RAD Chest PA or AP 1V INDICATION: SOB COMPARISON: None. DISCUSSION: Cardiomegaly and central vascular congestion. Subtle left retrocardiac opacity, nonspecific. Right lung is clear. No pleural effusion or pneumothorax. Consider chest CT for further evaluation. IMPRESSION: As above. Rafael Roa MD 03/30/20 0816 Thank you for allowing us to participate in the care of your patient.
[2020-03-30] MEDS ORDERED: Ondansetron 4 MG/2 ML SDV IVPUSH ONE (08:18)
--- NOTE | 2020-03-30 08:27 | CT ---
[id number] CT/CTA Chest EXAM: CT ANGIOGRAM CHEST INDICATION: SOB, ELEVATED D-DIMER, A-FIB WITH RVR CONVERTED COMPARISON: None. DISCUSSION: No large central or lobar pulmonary arterial filling defect to suggest acute pulmonary embolism. Evaluation of the segmental and subsegmental pulmonary arteries is limited secondary to suboptimal bolus. No airspace consolidation. No suspicious pulmonary nodules or masses. Bibasilar subsegmental atelectasis. Dependent atelectasis at the lung bases bilaterally. Coronary artery disease. Atherosclerotic calcifications of aorta and its branches. The heart is enlarged.No pleural or pericardial effusion. No mediastinal, hilar or axillary lymphadenopathy. Small volume ascites. The gallbladder is mildly distended. Hypodense lesion within the right hepatic lobe is not completely evaluated on this study. Dedicated multi phase CT of the liver versus MRI is recommended on a nonemergent basis. Atherosclerotic calcifications of the aorta and its branches. IMPRESSION: 1. No evidence of acute pulmonary embolism. 2. No CT evidence of active pneumonia. 3. Hypodense lesion within the right hepatic lobe is not completely evaluated on this study. Dedicated multi phase CT of the liver versus MRI is recommended on a nonemergent basis. Ortiz Quach DO 03/30/20 0826 Thank you for allowing us to participate in the care of your patient.
[2020-03-30 08:53] LABS: ANION GAP 16.5 mmol/L (5-15)
--- NOTE | 2020-03-30 09:15 | PCM.HP.2 ---
H&P History of Present Illness - General Date of Service: 03/30/20 Admit Problem/Dx: Admission Diagnosis/Problem Admission Diagnosis/Problem Atrial fibrillation with rapid ventricular response Source of Information: Patient, Old Records, RN History Limitations: Reports: No Limitations Abdomen Pain Score (Numeric/FACES): 0 - Related Data Allergies/Adverse Reactions: Allergies Allergy/AdvReac Type Severity Reaction Status Date / Time No Known Drug Allergies Allergy Cannot Verified 03/30/20 02:26 Remember Home Medications: Home Meds Bumetanide 1 mg PO ASDIRECTED 01/02/17 [History] Omeprazole 20 mg PO QAM 01/02/17 [History] Simvastatin [Zocor] 40 mg PO QAM 01/02/17 [History] Warfarin Sodium 5 mg PO ASDIRECTED 01/02/17 [History] carvediloL [Carvedilol] 9.375 mg PO BIDMEALS 01/02/17 [History] metOLazone [Metolazone] 1.25 mg PO ASDIRECTED 01/02/17 [History] Calcium Carbonate/Vitamin D3 [Calcium 600-Vit D3 500 Softgel] 1 tab PO QAM 03/08/18 [History] Cyanocobalamin (Vitamin B-12) [B-12] 1,000 mcg PO Q48H 03/08/18 [History] Ferrous Fumarate/Vitamin C [Vitron-C] 2 tab PO Q48H 03/08/18 [History] allopurinoL [Zyloprim] 200 mg PO QAM 03/08/18 [History] Insulin Glargine,Hum.Rec.Anlog [Basaglar Kwikpen U-100] 8 units SQ BEDTIME 02/14/20 [History] metFORMIN [Glucophage XR] 1,500 mg PO QAM 02/14/20 [History] Ferrous Sulfate [Ferosul] 325 mg PO BID 03/29/20 [History] Past Medical History HEENT History: Reports: Cataract, Impaired Vision Cardiovascular History: Reports: Afib, Heart Failure, High Cholesterol, Hypertension, SOB on Exertion Respiratory History: Reports: Other (See Below) Other Respiratory History: SOB with going up and down stairs Gastrointestinal History: Reports: GERD Genitourinary History: Reports: Renal Disease, Other (See Below) Other Genitourinary History: dribbling REGISTERED PUBLIC HEALTH NURSE History: Reports: Musculoskeletal History: Reports: Arthritis Endocrine/Metabolic History: Reports: Diabetes, Type II, IDDM, Obesity/BMI 30+ Hematologic History: Reports: Anticoagulation Therapy, B12 Deficiency Oncologic (Cancer) History: Reports: Breast, Other (See Below) Other Oncologic History: lumpectomy with radiation - Infectious Disease History Infectious Disease History: Reports: Chicken Pox, Measles - Past Surgical History HEENT Surgical History: Reports: Cataract Surgery Cardiovascular Surgical History: Reports: None Respiratory Surgical History: Reports: None GI Surgical History: Reports: Colonoscopy Female Surgical History: Reports: Breast Biopsy, Hysterectomy Endocrine Surgical History: Reports: None Musculoskeletal Surgical History: Reports: None Oncologic Surgical History: Reports: Lumpectomy - Past Imaging History Past Imaging History: Reports: Cardiac Echo, Xray Social & Family History - Family History Family Medical History: No Pertinent Family History - Tobacco Use Tobacco Use Status *Q: Former Tobacco User Years of Tobacco use: 40 Packs/Tins Daily: 1 Used Tobacco, but Quit: Yes Month/Year Tobacco Last Used: 05/2007 - Caffeine Use Caffeine Use: Reports: Coffee - Alcohol Use Days Per Week of Alcohol Use: 7 Number of Drinks Per Day: 1 Total Drinks Per Week: 7 - Recreational Drug Use Recreational Drug Use: No H&P Review of Systems - Review of Systems: Review Of Systems: See Below General: Reports: Malaise, Weakness, Fatigue, Decreased Appetite. Denies: Chills, Weight Gain HEENT: Reports: No Symptoms Pulmonary: Reports: Shortness of Breath, Cough, Sputum. Denies: Pleuritic Chest Pain Cardiovascular: Reports: Dyspnea on Exertion, Edema, Blood Pressure Problem. Denies: Chest Pain, Lightheadedness Gastrointestinal: Reports: No Symptoms Genitourinary: Reports: No Symptoms Musculoskeletal: Reports: Joint Swelling, Muscle Stiffness. Denies: Joint Pain Skin: Reports: Rash. Denies: Wound Psychiatric: Denies: Confusion, Anxiety Neurological: Reports: Pre-Existing Deficit, Difficulty Walking, Weakness, Gait Disturbance. Denies: Confusion, Dizziness Hematologic/Lymphatic: Reports: Easy Bruising Immunologic: Reports: No Symptoms Exam - Exam Exam: See Below - Vital Signs Vital Signs: Last Vital Signs Temp 97.6 F 03/30/20 08:30 Pulse 92 03/30/20 08:59 Resp 24 H 03/30/20 08:59 BP 99/48 L 03/30/20 08:59 Pulse Ox 95 03/30/20 08:59 Weight: 233 lb 12.8 oz - Exam Neck: Supple Lungs: Crackles, Rales Cardiovascular: Irregular Rhythm, Tachycardia GI/Abdominal Exam: Normal Bowel Sounds, Soft (Female) Exam: Deferred Back Exam: No: CVA Tenderness (L), CVA Tenderness (R) Extremities: Pedal Edema Skin: Rash Neurological: Normal Speech, Normal Tone Neuro Extensive - Mental Status: Alert, Oriented x3 Neuro Extensive - Motor, Sensory, Reflexes: No: Tongue Deviation (L), Tongue Deviation (R), Expressive Aphasia Psychiatric: Alert, Anxious - Patient Data Lab Results Last 24 hrs: Laboratory Results - last 24 hr 03/29/20 03/29/20 03/29/20 Range/Units 21:15 21:15 21:15 WBC (5.00-10.00) 10^3/uL RBC (3.80-5.50) 10^6/uL Hgb (12.0-16.0) g/dL Hct (37.0-47.0) % MCV (82.0-92.0) fL MCH (27.0-31.0) pg MCHC (32.0-36.0) g/dL RDW (11.5-14.5) % Plt Count (150-400) 10^3/uL MPV (7.4-10.4) fL Add Manual Diff Neutrophils % (Manual) (50-70) % Band Neutrophils % (4-12) % Lymphocytes % (Manual) (20-40) % Monocytes % (Manual) (2-8) % Absolute Neutrophils Band Neutrophils # Lymphocytes # (Manual) Monocytes # (Manual) PT (9.2-11.2) SEC INR (0.9-1.1) APTT (22.8-31.4) SEC D-Dimer, Quantitative 2410 H (<400) ng/mL Sodium 132 L (136-145) mmol/L Potassium 3.7 (3.3-5.3) mmol/L Chloride 94 L (98-115) mmol/L Carbon Dioxide 25.8 (21.0-32.0) mmol/L Anion Gap 15.9 H (5-15) mmol/L BUN 25 (6-25) mg/dL Creatinine 0.87 (0.51-1.17) mg/dL Est Cr Clr Drug Dosing TNP Estimated GFR (MDRD) > 60 mL/min Glucose 143 H (75 - 99) mg/dL POC Glucose (74-100) mg/dL Lactic Acid 1.5 (0.4-2.0) mmol/L Calcium 9.3 (8.7-10.3) mg/dL Magnesium (1.8-2.4) mg/dL Total Bilirubin 1.2 H (0.2-1.0) mg/dL AST 23 (15-37) U/L ALT 26 (12-78) U/L Alkaline Phosphatase 140 H (46-116) IU/L Creatine Kinase 28 (26-276) U/L CK-MB (CK-2) < 0.50 (0.00-4.30) ng/mL Troponin I 0.07 (0.00-0.070) ng/mL B-Natriuretic Peptide 352 H (0-100) pg/mL Total Protein 6.3 L (6.4-8.2) g/dL Albumin 3.04 (3.00-4.80) g/dL TSH, Ultra Sensitive (0.340-4.820) uIU/mL SARS CoV-2 RNA Rapid FERNANDO (NEGATIVE) 03/29/20 03/29/20 03/29/20 Range/Units 21:15 21:15 21:15 WBC 12.03 H (5.00-10.00) 10^3/uL RBC 4.22 (3.80-5.50) 10^6/uL Hgb 12.5 (12.0-16.0) g/dL Hct 38.5 (37.0-47.0) % MCV 91.2 (82.0-92.0) fL MCH 29.6 (27.0-31.0) pg MCHC 32.5 (32.0-36.0) g/dL RDW 15.9 H (11.5-14.5) % Plt Count 317 (150-400) 10^3/uL MPV 9.9 (7.4-10.4) fL Add Manual Diff Yes Neutrophils % (Manual) 62 (50-70) % Band Neutrophils % 31 H (4-12) % Lymphocytes % (Manual) 4 L (20-40) % Monocytes % (Manual) 3 (2-8) % Absolute Neutrophils 7.46 Band Neutrophils # 3.73 Lymphocytes # (Manual) 0.48 Monocytes # (Manual) 0.36 PT 34.9 H (9.2-11.2) SEC INR 3.6 H (0.9-1.1) APTT 43.5 H (22.8-31.4) SEC D-Dimer, Quantitative (<400) ng/mL Sodium (136-145) mmol/L Potassium (3.3-5.3) mmol/L Chloride (98-115) mmol/L Carbon Dioxide (21.0-32.0) mmol/L Anion Gap (5-15) mmol/L BUN (6-25) mg/dL Creatinine (0.51-1.17) mg/dL Est Cr Clr Drug Dosing Estimated GFR (MDRD) mL/min Glucose (75 - 99) mg/dL POC Glucose (74-100) mg/dL Lactic Acid (0.4-2.0) mmol/L Calcium (8.7-10.3) mg/dL Magnesium (1.8-2.4) mg/dL Total Bilirubin (0.2-1.0) mg/dL AST (15-37) U/L ALT (12-78) U/L Alkaline Phosphatase (46-116) IU/L Creatine Kinase (26-276) U/L CK-MB (CK-2) (0.00-4.30) ng/mL Troponin I (0.00-0.070) ng/mL B-Natriuretic Peptide (0-100) pg/mL Total Protein (6.4-8.2) g/dL Albumin (3.00-4.80) g/dL TSH, Ultra Sensitive (0.340-4.820) uIU/mL SARS CoV-2 RNA Rapid FERNANDO (NEGATIVE) 03/29/20 03/30/20 03/30/20 Range/Units 22:40 07:19 07:22 WBC 24.35 H D (5.00-10.00) 10^3/uL RBC 3.85 (3.80-5.50) 10^6/uL Hgb 11.4 L (12.0-16.0) g/dL Hct 35.4 L (37.0-47.0) % MCV 91.9 (82.0-92.0) fL MCH 29.6 (27.0-31.0) pg MCHC 32.2 (32.0-36.0) g/dL RDW 16.1 H (11.5-14.5) % Plt Count 289 (150-400) 10^3/uL MPV 10.2 (7.4-10.4) fL Add Manual Diff Yes Neutrophils % (Manual) 80 H (50-70) % Band Neutrophils % 10 (4-12) % Lymphocytes % (Manual) 6 L (20-40) % Monocytes % (Manual) 4 (2-8) % Absolute Neutrophils 21.9150 Band Neutrophils # Lymphocytes # (Manual) 1.4610 Monocytes # (Manual) 0.9740 PT (9.2-11.2) SEC INR (0.9-1.1) APTT (22.8-31.4) SEC D-Dimer, Quantitative (<400) ng/mL Sodium (136-145) mmol/L Potassium (3.3-5.3) mmol/L Chloride (98-115) mmol/L Carbon Dioxide (21.0-32.0) mmol/L Anion Gap (5-15) mmol/L BUN (6-25) mg/dL Creatinine (0.51-1.17) mg/dL Est Cr Clr Drug Dosing Estimated GFR (MDRD) mL/min Glucose (75 - 99) mg/dL POC Glucose 122 H (74-100) mg/dL Lactic Acid (0.4-2.0) mmol/L Calcium (8.7-10.3) mg/dL Magnesium (1.8-2.4) mg/dL Total Bilirubin (0.2-1.0) mg/dL AST (15-37) U/L ALT (12-78) U/L Alkaline Phosphatase (46-116) IU/L Creatine Kinase (26-276) U/L CK-MB (CK-2) (0.00-4.30) ng/mL Troponin I (0.00-0.070) ng/mL B-Natriuretic Peptide (0-100) pg/mL Total Protein (6.4-8.2) g/dL Albumin (3.00-4.80) g/dL TSH, Ultra Sensitive (0.340-4.820) uIU/mL SARS CoV-2 RNA Rapid FERNANDO Negative (NEGATIVE) 03/30/20 Range/Units 07:22 WBC (5.00-10.00) 10^3/uL RBC (3.80-5.50) 10^6/uL Hgb (12.0-16.0) g/dL Hct (37.0-47.0) % MCV (82.0-92.0) fL MCH (27.0-31.0) pg MCHC (32.0-36.0) g/dL RDW (11.5-14.5) % Plt Count (150-400) 10^3/uL MPV (7.4-10.4) fL Add Manual Diff Neutrophils % (Manual) (50-70) % Band Neutrophils % (4-12) % Lymphocytes % (Manual) (20-40) % Monocytes % (Manual) (2-8) % Absolute Neutrophils Band Neutrophils # Lymphocytes # (Manual) Monocytes # (Manual) PT (9.2-11.2) SEC INR (0.9-1.1) APTT (22.8-31.4) SEC D-Dimer, Quantitative (<400) ng/mL Sodium 135 L (136-145) mmol/L Potassium 4.1 (3.3-5.3) mmol/L Chloride 96 L (98-115) mmol/L Carbon Dioxide 26.6 (21.0-32.0) mmol/L Anion Gap 16.5 H (5-15) mmol/L BUN 31 H (6-25) mg/dL Creatinine 1.11 (0.51-1.17) mg/dL Est Cr Clr Drug Dosing 36.65 Estimated GFR (MDRD) 48 mL/min Glucose 119 H (75 - 99) mg/dL POC Glucose (74-100) mg/dL Lactic Acid (0.4-2.0) mmol/L Calcium 9.1 (8.7-10.3) mg/dL Magnesium 1.3 L (1.8-2.4) mg/dL Total Bilirubin 1.4 H (0.2-1.0) mg/dL AST 23 (15-37) U/L ALT 20 (12-78) U/L Alkaline Phosphatase 115 (46-116) IU/L Creatine Kinase (26-276) U/L CK-MB (CK-2) (0.00-4.30) ng/mL Troponin I 0.04 (0.00-0.070) ng/mL B-Natriuretic Peptide (0-100) pg/mL Total Protein 5.9 L (6.4-8.2) g/dL Albumin 2.72 L (3.00-4.80) g/dL TSH, Ultra Sensitive 0.870 (0.340-4.820) uIU/mL SARS CoV-2 RNA Rapid FERNANDO (NEGATIVE) Result Diagrams: 03/30/20 07:22 03/30/20 07:22 Sepsis Event Note - Evaluation Sepsis Screening Result: Possible Sepsis Risk - Focused Exam Vital Signs: Vital Signs Temp Temp Pulse Resp BP Pulse Ox 03/30/20 08:59 92 24 H 99/48 L 95 03/30/20 08:30 97.6 F 97 20 120/63 94 L 03/30/20 07:58 97.5 F 104 H 22 H 111/55 L 94 L 03/30/20 07:30 97.7 F 92 22 H 106/33 L 94 L 03/30/20 07:00 97.6 F 95 24 H 109/55 L 94 L 03/30/20 06:30 108/56 L 03/30/20 06:00 98.2 F 24 H 112/59 L 94 L 03/30/20 05:32 91 114/60 03/30/20 05:02 91 106/50 L 03/30/20 04:30 99.4 F 98 112/52 L 03/30/20 04:00 94 108/76 03/30/20 03:30 95 105/63 03/30/20 03:00 98.3 F 96 24 H 100/58 L 96 03/30/20 02:30 95 97/58 L 03/30/20 02:00 94 101/55 L 03/30/20 01:30 100 101/56 L 03/30/20 01:00 99 113/69 95 03/30/20 00:35 98.6 F 113 H 28 H 112/57 L 96 03/30/20 00:00 102 H 29 H 105/51 L 94 L 03/29/20 23:45 113 H 29 H 115/51 L 93 L 03/29/20 23:30 103 H 25 H 115/49 L 95 03/29/20 23:16 99 25 H 119/52 L 93 L 03/29/20 22:46 137 H 22 H 116/57 L 03/29/20 22:45 119 H 29 H 116/54 L 90 L 03/29/20 22:30 111 H 33 H 92 L 03/29/20 22:15 106 H 28 H 105/52 L 91 L 03/29/20 22:00 123 H 25 H 111/55 L 92 L 03/29/20 21:45 113 H 24 H 116/59 L 91 L 03/29/20 21:31 185 H 34 H 123/80 91 L 03/29/20 21:16 155 H 30 H 106/60 91 L Problem List Initiated/Reviewed/Updated: Yes Orders Last 24hrs: Active Orders 24 hr Category Date Time Status Patient Status [ADT] Routine ADT 03/29/20 23:54 Active Blood Glucose Check, Bedside [RC] QIDACANDBED Care 03/30/20 01:21 Active Cardiac Monitoring [RC] 03,07,,,, Care 03/29/20 23:54 Active Peripheral IV Care [RC] , Care 03/29/20 21:11 Active Consult to Case Management/Bicycle Courier [CONS] Cons 03/30/20 01:14 Active Routine Heart Healthy Diet [DIET] Diet 03/30/20 Breakfast Active CULTURE BLOOD [BC] Stat Lab 03/29/20 20:58 Ordered CULTURE BLOOD [BC] Stat Lab 03/29/20 22:40 Received CULTURE SPUTUM + SMEAR [RM] Routine Lab 03/30/20 09:09 Ordered INR,PT,PROTHROMBIN TIME [COAG] AM Lab 03/30/20 05:11 Ordered Acetaminophen [TylenoL] Med 03/30/20 01:10 Active 650 mg PO Q4H PRN Diltiazem 125 mg Med 03/29/20 23:00 Active Sodium Chloride 0.9% [Normal Saline] 100 ml IV TITRATE Ondansetron [Zofran] Med 03/30/20 01:11 Active 4 mg IVPUSH Q4H PRN Pharmacy Consult [Consult to Pharmacy] Med 03/30/20 01:15 Pending 1 each .XX ASDIRECTED Sodium Chloride 0.9% [Normal Saline] 100 ml Med 03/29/20 23:15 Active IV ASDIRECTED Sodium Chloride 0.9% [Saline Flush] Med 03/29/20 21:11 Active 10 ml FLUSH Q8HR PRN Blood Culture x2 Reflex Set [OM.PC] Stat Oth 03/29/20 20:58 Ordered Peripheral IV Insertion Adult [OM.PC] Routine Oth 03/29/20 21:11 Ordered Code Status [Resuscitation Status] Stat Resus Stat 03/29/20 21:00 Ordered EKG 12 Lead [EK] Urgent Ther 03/29/20 20:57 Ordered EKG 12 Lead [EK] Urgent Ther 03/29/20 21:37 Ordered Medication Orders Acetaminophen (Tylenol) 650 mg PO Q4H PRN PRN Reason: Pain Diltiazem HCl 125 mg/ Sodium (Chloride) 125 mls @ 5 mls/hr IV TITRATE KIT; Protocol Last Admin: 03/29/20 23:33 Dose: 5 mg/hr, 5 mls/hr Documented by: DAVID Sodium Chloride (Normal Saline) 100 mls @ 200 mls/hr IV ASDIRECTED KIT Last Admin: 03/29/20 23:00 Dose: 200 mls/hr Documented by: YVON Ondansetron HCl (Zofran) 4 mg IVPUSH Q4H PRN PRN Reason: Nausea/Vomiting Last Admin: 03/30/20 06:22 Dose: 4 mg Documented by: Admin: 03/30/20 01:31 Dose: 4 mg Documented by: AGATHA Pharmacy Consult (Consult To Pharmacy) 1 each .XX ASDIRECTED KIT Sodium Chloride (Saline Flush) 10 ml FLUSH Q8HR PRN PRN Reason: keep vein open Last Admin: 03/29/20 21:15 Dose: 10 ml Documented by: DAVID Assessment/Plan Comment:: History of present illness Alona is a 79-year-old obese female who was admitted in inpatient status last night through the ED due to atrial fibrillation with RVR. Patient was at home with her spouse and notified EMS due to shortness of breath and overall weakness. Patient states even though she has a COVID-19 negative she felt like she had some sort of virus with low-grade temperatures body chills weakness and nausea over the past few days. She had been quarantined at home. Patient recently evaluated in the ED due to falling at home losing her balance and has subsequently been undergoing physical therapy. Home meds notes Quit taking Bumex and and Zaroxolyn due to recent illness and did not want to get up to excessively void Records indicate apparently recently started on ANKUR inhibitor however she has not been taking it because she states it makes her "sick" Oncology recently DC Femara as patient >5 Breast CA history Some patient confusion regarding warfarin dosage, elevated INR Pertinent ED findings/work-up VS: HR 180, MAP 86, afebrile EKG; atrial fibrillation RVR rates 118-166, independent review myself shows ST elevation in lead III 20 mg IV Cardizem given, started on drip CXR: No left retrocardiac opacity, no pleural effusion or pneumothorax Chest CT, no evidence of PE, bibasilar atelectasis, HF, mildly dilated gallbladder, liver lesion Dimer, 2410 INR 3.6 Sodium 132 Creat 0.87 BNP 352 Trop 0.04 TSH 0.8 ECHO: 2015 EF 55 %. Low normal systolic function of the left ventricle. No . No significant regurgitation of the aortic valve. No significant regurgitation of the mitral valve. [id number] dilated left atrium. [id number] dilated right atrium. Trivial regurgitation of the tricuspid valve. Mild pulmonary artery hypertension. Primary hospital problems --Atrial Fibrillation, RVR, [id number] 5, elevated INR, hold warfarin, rx to mgt --HFpEF, home regimen includs carvedilol 9.375 mg BID, pt stopped ACEI, hold for now, wt 03/05 230 --Pneumonia clinical suspicion, sputum culture obtained Chronic problems Hypertension, pt stopped tete ACEI Peripheral vascular disease T2DM, recent A1c 5.6% home regimen Basaglar 18 units Qhs, Metformin XR, 1500mg daily, proteinuria, hold metformin, stop insulin, pt stopped ACEI Chronic Kidney disease, stage III, baseline creatinine <1 Anemia, Chronic dz/renal, hold 2/2 nausea Obesity Vit b12 patient is a, Lymphedema Gout Immunization status Influenza vaccination, current Shingles, recently declined Disposition/overall plan --Patient meets ongoing inpatient telemetry status qualification 2/2 for continuous cardiac monitoring, medication adjustments, patient education, careful monitoring of CV/pulmonary status --Holding home meds: Insulin carvedilol, metformin, iron, MDM; very delicate balance with fluid overload, hypotension, tachycardia and the need for fluid balance. Strict I&O today, please obtain accurate weight now, daily weights, added low salt diet, DC Cardizem drip, start Digoxin once MAP consistently >70, monitor, then will start diuresing gentle therapy, Given acute WBC elevation/neutrophils along sputum production will start on antibiotic for suspected pneumonia, procalcitonin added. labs in am.
[2020-03-30] MEDS ORDERED: Digoxin 125 MCG Tab PO ONE ×2 (10:40→18:00)
[2020-03-30] MEDS ORDERED: Sodium Chloride 0.9% 250 ML IV ONE (10:45)
[2020-03-30] MEDS: cefTRIAXone 1 GM Vial IVPUSH SCH (10:57)
[2020-03-30] MEDS: Cyanocobalamin (Vitamin B12) 500 MCG Tab PO SCH (10:58)
[2020-03-30] MEDS: Carvedilol 6.25 MG Tab PO SCH (17:57)
[2020-03-31] MEDS ORDERED: Digoxin 125 MCG Tab PO ONE ×2 (00:05→10:01)
[2020-03-31] MEDS: Carvedilol 6.25 MG Tab PO SCH ×2 (08:05→17:59)
[2020-03-31] MEDS: Omeprazole 20 MG Cap.CR PO SCH (08:05)
[2020-03-31] MEDS: Allopurinol 100 MG Tab PO SCH (08:05)
[2020-03-31 08:31] LABS: ANION GAP 17.5 mmol/L (5-15)
[2020-03-31] MEDS ORDERED: Carvedilol 6.25 MG Tab PO ONE (08:56)
[2020-03-31] MEDS ORDERED: Sodium Chloride 0.9% 500 ML IV SCH (09:00)
--- NOTE | 2020-03-31 09:08 | PCM.PN ---
- General Info Date of Service: 03/31/20 Functional Status: Reports: Tolerating Diet, New Symptoms (She states periodic sporadic right inguinal abdominal pain comes and goes she states past 2 days). Denies: Pain Controlled, Ambulating, Urinating - Review of Systems General: Reports: Weakness, Fatigue, Malaise. Denies: Fever, Chills, Night Sweats, Appetite HEENT: Reports: No Symptoms Pulmonary: Reports: Shortness of Breath, Cough, Sputum. Denies: Wheezing Cardiovascular: Reports: Palpitations, Dyspnea on Exertion, Edema. Denies: Chest Pain, Orthopnea, PND, Lightheadedness Gastrointestinal: Reports: Abdominal Pain. Denies: Diarrhea, Nausea, Vomiting Genitourinary: Reports: No Symptoms Musculoskeletal: Reports: No Symptoms Skin: Reports: Dryness Neurological: Reports: Difficulty Walking, Weakness. Denies: Confusion, Tremors, Change in Speech Psychiatric: Reports: Mood Lability - Patient Data Vitals - Most Recent: Last Vital Signs Temp 97.3 F 03/31/20 08:00 Pulse 126 H 03/31/20 08:05 Resp 22 H 03/31/20 08:00 BP 115/64 03/31/20 08:05 Pulse Ox 95 03/31/20 08:00 Weight - Most Recent: 231 lb 6 oz I&O - Last 24 Hours: Intake & Output 03/30/20 03/31/20 03/31/20 22:59 06:59 14:59 Intake Total 300 300 Output Total 100 Balance 300 200 Lab Results Last 24 Hours: Laboratory Results - last 24 hr 03/30/20 03/30/20 03/30/20 Range/Units 07:22 07:22 07:22 WBC (5.00-10.00) 10^3/uL RBC (3.80-5.50) 10^6/uL Hgb (12.0-16.0) g/dL Hct (37.0-47.0) % MCV (82.0-92.0) fL MCH (27.0-31.0) pg MCHC (32.0-36.0) g/dL RDW (11.5-14.5) % Plt Count (150-400) 10^3/uL MPV (7.4-10.4) fL Immature Gran % (Auto) (0.0-5.0) % Neut % (Auto) (50.0-70.0) % Lymph % (Auto) (20.0-40.0) % [place] % (Auto) (2.0-8.0) % Eos % (Auto) (1.0-3.0) % Baso % (Auto) (0.0-1.0) % Neut # (Auto) (2.50-7.00) 10^3/uL Lymph # (Auto) (1.00-4.00) 10^3/uL [place] # (Auto) (0.10-0.80) 10^3/uL Eos # (Auto) (0.10-0.30) 10^3/uL Baso # (Auto) (0.00-0.10) 10^3/uL Immature Gran # (Auto) (0.00-0.50) 10^3/uL Neutrophils % (Manual) 80 H (50-70) % Band Neutrophils % 10 (4-12) % Lymphocytes % (Manual) 6 L (20-40) % Monocytes % (Manual) 4 (2-8) % Absolute Neutrophils 21.9150 Lymphocytes # (Manual) 1.4610 Monocytes # (Manual) 0.9740 PT 27.6 H (9.2-11.2) SEC INR 2.8 H (0.9-1.1) Sodium (136-145) mmol/L Potassium (3.3-5.3) mmol/L Chloride (98-115) mmol/L Carbon Dioxide (21.0-32.0) mmol/L Anion Gap (5-15) mmol/L BUN (6-25) mg/dL Creatinine (0.51-1.17) mg/dL Est Cr Clr Drug Dosing mL/min Estimated GFR (MDRD) mL/min Glucose (75 - 99) mg/dL POC Glucose (74-100) mg/dL Calcium (8.7-10.3) mg/dL Total Bilirubin (0.2-1.0) mg/dL AST (15-37) U/L ALT (12-78) U/L Alkaline Phosphatase (46-116) IU/L Total Protein (6.4-8.2) g/dL Albumin (3.00-4.80) g/dL Procalcitonin 37.54 H (<0.10) ng/mL 11/24/20 11/24/20 11/24/20 Range/Units 11:37 18:01 20:08 WBC (5.00-10.00) 10^3/uL RBC (3.80-5.50) 10^6/uL Hgb (12.0-16.0) g/dL Hct (37.0-47.0) % MCV (82.0-92.0) fL MCH (27.0-31.0) pg MCHC (32.0-36.0) g/dL RDW (11.5-14.5) % Plt Count (150-400) 10^3/uL MPV (7.4-10.4) fL Immature Gran % (Auto) (0.0-5.0) % Neut % (Auto) (50.0-70.0) % Lymph % (Auto) (20.0-40.0) % [place] % (Auto) (2.0-8.0) % Eos % (Auto) (1.0-3.0) % Baso % (Auto) (0.0-1.0) % Neut # (Auto) (2.50-7.00) 10^3/uL Lymph # (Auto) (1.00-4.00) 10^3/uL [place] # (Auto) (0.10-0.80) 10^3/uL Eos # (Auto) (0.10-0.30) 10^3/uL Baso # (Auto) (0.00-0.10) 10^3/uL Immature Gran # (Auto) (0.00-0.50) 10^3/uL Neutrophils % (Manual) (50-70) % Band Neutrophils % (4-12) % Lymphocytes % (Manual) (20-40) % Monocytes % (Manual) (2-8) % Absolute Neutrophils Lymphocytes # (Manual) Monocytes # (Manual) PT (9.2-11.2) SEC INR (0.9-1.1) Sodium (136-145) mmol/L Potassium (3.3-5.3) mmol/L Chloride (98-115) mmol/L Carbon Dioxide (21.0-32.0) mmol/L Anion Gap (5-15) mmol/L BUN (6-25) mg/dL Creatinine (0.51-1.17) mg/dL Est Cr Clr Drug Dosing mL/min Estimated GFR (MDRD) mL/min Glucose (75 - 99) mg/dL POC Glucose 148 H 173 H 201 H (74-100) mg/dL Calcium (8.7-10.3) mg/dL Total Bilirubin (0.2-1.0) mg/dL AST (15-37) U/L ALT (12-78) U/L Alkaline Phosphatase (46-116) IU/L Total Protein (6.4-8.2) g/dL Albumin (3.00-4.80) g/dL Procalcitonin (<0.10) ng/mL 03/31/20 03/31/20 03/31/20 Range/Units 07:15 07:17 07:17 WBC 24.66 H (5.00-10.00) 10^3/uL RBC 3.66 L (3.80-5.50) 10^6/uL Hgb 10.9 L (12.0-16.0) g/dL Hct 33.4 L (37.0-47.0) % MCV 91.3 (82.0-92.0) fL MCH 29.8 (27.0-31.0) pg MCHC 32.6 (32.0-36.0) g/dL RDW 16.1 H (11.5-14.5) % Plt Count 323 (150-400) 10^3/uL MPV 10.4 (7.4-10.4) fL Immature Gran % (Auto) 1.3 (0.0-5.0) % Neut % (Auto) 89.2 H (50.0-70.0) % Lymph % (Auto) 3.4 L (20.0-40.0) % [place] % (Auto) 6.0 (2.0-8.0) % Eos % (Auto) 0.0 L (1.0-3.0) % Baso % (Auto) 0.1 (0.0-1.0) % Neut # (Auto) 21.99 H (2.50-7.00) 10^3/uL Lymph # (Auto) 0.83 L (1.00-4.00) 10^3/uL [place] # (Auto) 1.49 H (0.10-0.80) 10^3/uL Eos # (Auto) 0.00 L (0.10-0.30) 10^3/uL Baso # (Auto) 0.03 (0.00-0.10) 10^3/uL Immature Gran # (Auto) 0.32 (0.00-0.50) 10^3/uL Neutrophils % (Manual) (50-70) % Band Neutrophils % (4-12) % Lymphocytes % (Manual) (20-40) % Monocytes % (Manual) (2-8) % Absolute Neutrophils Lymphocytes # (Manual) Monocytes # (Manual) PT (9.2-11.2) SEC INR (0.9-1.1) Sodium 130 L (136-145) mmol/L Potassium 4.6 (3.3-5.3) mmol/L Chloride 93 L (98-115) mmol/L Carbon Dioxide 24.1 (21.0-32.0) mmol/L Anion Gap 17.5 H (5-15) mmol/L BUN 52 H* (6-25) mg/dL Creatinine 1.99 H (0.51-1.17) mg/dL Est Cr Clr Drug Dosing 20.44 mL/min Estimated GFR (MDRD) 24 mL/min Glucose 140 H (75 - 99) mg/dL POC Glucose 135 H (74-100) mg/dL Calcium 8.9 (8.7-10.3) mg/dL Total Bilirubin 0.8 (0.2-1.0) mg/dL AST 23 (15-37) U/L ALT 21 (12-78) U/L Alkaline Phosphatase 103 (46-116) IU/L Total Protein 6.2 L (6.4-8.2) g/dL Albumin 2.53 L (3.00-4.80) g/dL Procalcitonin (<0.10) ng/mL [place] Results Last 24 Hours: Microbiology 03/29/20 22:40 Aerobic Blood Culture - Preliminary Blood - Arm, Left NO GROWTH AFTER 1 DAY Anaerobic Blood Culture - Preliminary NO GROWTH AFTER 1 DAY Med Orders - Current: Current Medications Acetaminophen (Tylenol) 650 mg PO Q4H PRN PRN Reason: Pain Allopurinol (Zyloprim) 200 mg PO QAM [facility] Last Admin: 11/25/20 08:05 Dose: 200 mg Documented by: Carvedilol (Coreg) 3.125 mg PO BIDMEALS [facility] Last Admin: 03/31/20 08:05 Dose: 3.125 mg Documented by: Carvedilol (Coreg) 3.025 mg PO ONETIME ONE Stop: 03/31/20 08:57 Ceftriaxone Sodium (Rocephin) 1 gm IVPUSH Q24H [facility] Last Admin: 03/30/20 10:57 Dose: 1 gm Documented by: Cyanocobalamin (Vitamin B12) 1,000 mcg PO Q48H [facility] Last Admin: 03/30/20 10:58 Dose: 1,000 mcg Documented by: Sodium Chloride (Normal Saline) 100 mls @ 200 mls/hr IV ASDIRECTED [facility] Last Admin: 03/29/20 23:00 Dose: 200 mls/hr Documented by: Sodium Chloride (Normal Saline) 500 mls @ 500 mls/hr IV ASDIRECTED [facility] Sodium Chloride (Normal Saline) 1,000 mls @ 90 mls/hr IV ASDIRECTED [facility] Omeprazole (Omeprazole) 20 mg PO QAM [facility] Last Admin: 03/31/20 08:05 Dose: 20 mg Documented by: Ondansetron HCl (Zofran) 4 mg IVPUSH Q4H PRN PRN Reason: Nausea/Vomiting Last Admin: 03/30/20 06:22 Dose: 4 mg Documented by: Sodium Chloride (Saline Flush) 10 ml FLUSH Q8HR PRN PRN Reason: keep vein open Last Admin: 03/29/20 21:15 Dose: 10 ml Documented by: Discontinued Medications Digoxin (Lanoxin) 250 mcg PO ONETIME ONE Stop: 03/30/20 10:41 Last Admin: 03/30/20 12:01 Dose: 250 mcg Documented by: Digoxin (Lanoxin) 125 mcg PO ONETIME ONE Stop: 03/30/20 18:01 Last Admin: 03/30/20 17:57 Dose: 125 mcg Documented by: Digoxin (Lanoxin) 125 mcg PO ONETIME ONE Stop: 03/31/20 00:06 Last Admin: 03/30/20 23:44 Dose: Not Given Documented by: Diltiazem HCl (Diltiazem) 20 mg IVPUSH ONETIME ONE Stop: 11/23/20 21:11 Last Admin: 03/29/20 21:30 Dose: 20 mg Documented by: Diltiazem HCl (Diltiazem) 5 mg IVPUSH ONETIME ONE Stop: 03/30/20 01:20 Last Admin: 03/30/20 01:43 Dose: Not Given Documented by: Diltiazem HCl 125 mg/ Sodium (Chloride) 125 mls @ 5 mls/hr IV TITRATE KIT; Protocol Last Admin: 03/29/20 23:33 Dose: 5 mg/hr, 5 mls/hr Documented by: Sodium Chloride (Normal Saline) 250 mls @ 999 mls/hr IV ONETIME ONE Stop: 03/30/20 11:00 Last Admin: 03/30/20 10:38 Dose: 999 mls/hr Documented by: Iopamidol (Isovue-370 (76%)) 100 ml IV ONETIME ONE Stop: 03/29/20 23:15 Last Admin: 03/29/20 23:00 Dose: 75 ml Documented by: Ondansetron HCl (Zofran) 4 mg IVPUSH ONETIME ONE Stop: 03/30/20 08:19 Last Admin: 03/30/20 08:29 Dose: 4 mg Documented by: - Exam Quality Assessment: Supplemental Oxygen (1 Liter oxygen), DVT Prophylaxis General: Alert, Oriented, Cooperative, No Acute Distress Neck: No JVD Lungs: No: Crackles, Rales, Rhonchi Cardiovascular: Irregular Rhythm, Tachycardia GI/Abdominal Exam: Normal Bowel Sounds, Soft, No Distention, Tender (Slight tenderness right lower quadrant sporadic, no rebound no guarding). No: Rigid, Rebound Back Exam: No: CVA Tenderness (L), CVA Tenderness (R) Extremities: No: Pedal Edema Peripheral Pulses: 2+: Radial (L), Radial (R) Skin: Dry Neurological: Normal Speech Psy/Mental Status: Alert, Labile Mood Sepsis Event Note - Evaluation Sepsis Screening Result: Severe Sepsis Risk - Focused Exam Vital Signs: Vital Signs Temp Pulse Pulse Resp BP BP Pulse Ox 03/31/20 08:05 126 H 115/64 03/31/20 08:00 97.3 F 118 H 22 H 115/64 95 03/31/20 07:00 98 F 110 H 24 H 110/53 L 94 L 03/31/20 05:58 97.7 F 110 H 22 H 109/59 L 96 03/31/20 05:00 113 H 20 112/48 L 95 03/31/20 04:00 102 H 28 H 105/59 L 94 L 03/31/20 03:00 98.4 F 118 H 22 H 118/88 95 03/31/20 02:00 126 H 22 H 123/53 L 94 L 03/31/20 01:00 109 H 22 H 111/92 H 95 03/31/20 00:00 132 H 29 H 125/48 L 96 03/30/20 23:05 97.8 F 99 22 H 119/55 L 96 03/30/20 23:00 117 H 21 H 97/39 L 95 03/30/20 22:58 103 H 21 H 85/40 L 96 03/30/20 22:00 113 H 28 H 117/56 L 97 - Problem List Review Problem List Initiated/Reviewed/Updated: Yes - My Orders Last 24 Hours: My Active Orders 03/30/20 09:00 RESPIRATORY CULT [MREF] Routine 03/30/20 10:08 Daily Weight [Height and Weight] [RC] 0700 03/30/20 10:36 CULTURE SPUTUM + SMEAR [RM] Routine 03/30/20 10:37 Incentive Spirometry [RT Incentive Spirometry] [RC] Q1HWA 03/30/20 10:45 Cyanocobalamin (Vitamin B12) [Vitamin B12] 1,000 mcg PO Q48H 03/30/20 11:00 cefTRIAXone [Rocephin] 1 gm IVPUSH Q24H 03/30/20 Dinner Low Sodium [Sodium Restricted Diet] [DIET] 03/31/20 08:56 UA W/MICROSCOPIC [URIN] Routine carvediloL [Coreg] 3.025 mg PO ONETIME ONE 03/31/20 08:57 CXR [Chest 2V] [CR] Routine SODIUM,URINE RANDOM [URCHEM] Routine 03/31/20 09:00 Omeprazole 20 mg PO QAM Sodium Chloride 0.9% [Normal Saline] 1,000 ml IV ASDIRECTED Sodium Chloride 0.9% [Normal Saline] 500 ml IV ASDIRECTED allopurinoL [Zyloprim] 200 mg PO QAM - Plan Plan:: History of present illness Alona is a 79-year-old obese female who was admitted in inpatient status last night through the ED due to atrial fibrillation with RVR. Patient was at home with her spouse and notified EMS due to shortness of breath and overall weakness. Patient states even though she has a COVID-19 negative she felt like she had some sort of virus with low-grade temperatures body chills weakness and nausea over the past few days. She had been quarantined at home. Patient recently evaluated in the ED due to falling at home losing her balance and has subsequently been undergoing physical therapy. Home meds notes Quit taking Bumex and and Zaroxolyn due to recent illness and did not want to get up to excessively void Records indicate apparently recently started on ANKUR inhibitor however she has not been taking it because she states it makes her "sick" Oncology recently DC Femara as patient >5 Breast CA history Some patient confusion regarding warfarin dosage, elevated INR Pertinent ED findings/work-up VS: HR 180, MAP 86, afebrile EKG; atrial fibrillation RVR rates 118-166, independent review myself shows ST elevation in lead III 20 mg IV Cardizem given, started on drip CXR: No left retrocardiac opacity, no pleural effusion or pneumothorax Chest CT, no evidence of PE, bibasilar atelectasis, HF, mildly dilated gallbladder, liver lesion Dimer, 2410 INR 3.6 Sodium 132 Creat 0.87 BNP 352 Trop 0.04 TSH 0.8 ECHO: 2016 EF 55 %. Low normal systolic function of the left ventricle. No . No significant regurgitation of the aortic valve. No significant regurgitation of the mitral valve. [id number] dilated left atrium. [id number] dilated right atrium. Trivial regurgitation of the tricuspid valve. Mild pulmonary artery hypertension. Hospital update 03/31/2020; overnight low BP on-call provider held digoxin, this morning patient in no acute distress however does complain of right lower abdominal pain sporadic, "I do not have it all the time" febrile no night sweats, significant elevation in procalcitonin with other inflammatory indices elevated. Heart rate throughout the 110's. BUN creatinine elevated, decreased urinary output, patient appears dry, no JVD. No nausea or vomiting, good BMs, no chest pain, cough and sputum continue--however white in color. The evening she was started back on her Carvedilol however at minimal dose. Primary hospital problems --Atrial Fibrillation, RVR, [id number], elevated INR, hold warfarin, rx to mgt --HFpEF, home regimen includes carvedilol 9.375 mg BID, pt stopped ACEI, hold for now, wt 03/05 230# --Pneumonia clinical suspicion, sputum culture obtained --Hyponatremia suspect hypotonic, suspc Chronic problems Hypertension, pt stopped tete ACEI Peripheral vascular disease T2DM, recent A1c 5.6% home regimen Basaglar 18 units Qhs, Metformin XR, 1500mg daily, proteinuria, hold metformin, stop insulin, pt stopped ACEI Chronic Kidney disease, stage III, baseline creatinine <1 Anemia, Chronic dz/renal, hold 2/2 nausea Obesity Vit b12 patient is a, Lymphedema Gout Immunization status Influenza, current Shingles, recently declined Disposition/overall plan --Patient meets ongoing inpatient telemetry status qualification 2/2 for continuous cardiac monitoring, medication adjustments, patient education, careful monitoring of CV/pulmonary status --Continue with digoxin, increase Carvedilol and titrate up as tolerated to home baselin, fluid bolus now, then maint rate, encourage PO. Renal NA studies --Random UA sodium and creatine to assess sodium fractional excretion --Will consider Abd CT after improved renal parameters and clinical picture. --High sepsis risk, --Holding home meds: Insulin metformin, iron, MDM; patient significant obesity and difficult determining fluid status volume however likely depleted. BUN/creatinine elevation in a patient that has gained 2 pounds and has been off her diuretics for 3 days now. No JVD, no impressive peripheral edema, is thirsty with dry mucous membranes, extremities cool, Intake > output in a patient with CHF and sepsis risk and afib. Increased dullness to posterior lung lobes with decreased pulmonary excursion, suspect consolidation, repeat CXR now. Assess urine sodium levels as I suspect hypovolemia hyponatremia. Fluid challenge now hold diuretics, likely will start erythromycin once chest x-ray returns. Digoxin level in 48 hrs--especially if starting macrolide. Discussed the case with rn social work and patient. Patient needs [facility] for at least 1 month however she is refusing retirement due to Covid concerns. Therefore we'll admit her into SNF/swing bed here at [facility] once stable. PT consult.
--- NOTE | 2020-03-31 09:33 | CR ---
[id number] RAD/RAD Chest PA or AP 1V EXAM: SINGLE VIEW CHEST. INDICATION: TACHYPNEA PRODUCTIVE COUGH COMPARISON: CORRELATION IS MADE WITH MARCH 29, 2020 FINDINGS: An early infiltrate is seen at the left lung base The lungs otherwise are clear The cardiac silhouette is prominent but stable IMPRESSION: EARLY PNEUMONIA LEFT LUNG BASE Willie Hutchins MD 03/31/20 0932 Thank you for allowing us to participate in the care of your patient.
[2020-03-31] MEDS: Sodium Chloride 0.9% 1,000 ML IV SCH ×2 (10:19→21:17)
[2020-03-31] MEDS: cefTRIAXone 1 GM Vial IVPUSH SCH (10:20)
[2020-03-31] MEDS: Azithromycin 500 MG in Sodium Chloride 0.9% 250 ML IV SCH (11:30)
[2020-03-31] MEDS: Ondansetron 4 MG/2 ML SDV IVPUSH PRN (23:12)
[2020-04-01] MEDS ORDERED: Bisacodyl 5 MG Tab PO PRN ×2 (05:51→08:34)
[2020-04-01] MEDS: Omeprazole 20 MG Cap.CR PO SCH ×2 (07:51→08:33)
[2020-04-01] MEDS: Carvedilol 6.25 MG Tab PO SCH (07:51)
[2020-04-01 07:53] LABS: ANION GAP 14.4 mmol/L (5-15)
[2020-04-01] MEDS: Allopurinol 100 MG Tab PO SCH (08:59)
[2020-04-01] MEDS: Sodium Chloride 0.9% 1,000 ML IV SCH (08:59)
[2020-04-01] MEDS ORDERED: Digoxin 125 MCG Tab PO SCH (09:00)
[2020-04-01 09:05] VITALS: BP 118/61; PULSE 94
--- NOTE | 2020-04-01 09:57 | PCM.DCSUM1 ---
Discharge Summary - Discharge Data Discharge Date: 04/01/20 Discharge Disposition: DC/Tfer to Acute Hospital 02 Condition: Fair - Referral to Home Health Primary Care Physician: Maggie Holland NP - Discharge Diagnosis/Problem(s) (1) Left lower lobe pneumonia SNOMED Code(s): 904948249 ICD Code: J18.9 - PNEUMONIA, UNSPECIFIED ORGANISM Status: Acute Current Visit: Yes (2) Atrial fibrillation with rapid ventricular response SNOMED Code(s): 903271426631313 ICD Code: I48.91 - UNSPECIFIED ATRIAL FIBRILLATION Status: Chronic Priority: High Current Visit: No (3) Acute kidney injury SNOMED Code(s): 67099745, 48326922 ICD Code: N17.9 - ACUTE KIDNEY FAILURE, UNSPECIFIED Status: Acute Current Visit: Yes (4) Elevated brain natriuretic peptide (BNP) level SNOMED Code(s): 912288420, 195491207 ICD Code: R79.89 - OTHER SPECIFIED ABNORMAL FINDINGS OF BLOOD CHEMISTRY Status: Acute Priority: High Current Visit: No (5) Hyponatremia SNOMED Code(s): 12100465 ICD Code: E87.1 - HYPO-OSMOLALITY AND HYPONATREMIA Status: Chronic Current Visit: Yes (6) COVID-19 ruled out by laboratory testing SNOMED Code(s): 065699681, 643859780 ICD Code: Z03.818 - ENCNTR FOR OBS FOR SUSP EXPSR TO OTH BIOLG AGENTS RULED OUT Status: Acute Priority: High Current Visit: No (7) Non compliance w medication regimen SNOMED Code(s): 311245851 ICD Code: Z91.14 - PATIENT'S OTHER NONCOMPLIANCE WITH MEDICATION REGIMEN Status: Chronic Priority: High Current Visit: No - Patient Summary/Data Consults: Consultations 03/30/20 01:14 Consult to Case Management/Mesh Man [CONS] Routine Hospital Course: Date of admission: 03/29/20 Date of discharge: 04/01/20 Admission diagnoses: Atrial fibrillation with RVR Supratherapeutic INR Cough/SOB Weakness Elevated d-dimer Discharge diagnoses: LLL pneumonia, CAP COVID Negative Atrial fibrillation with RVR, [id number] score 5, Supratherapeutic INR RLQ pain Acute kidney injury on CKD stage 3 Acute on Chronic hyponatremia Acute on Chronic CHF Hospital course: Alona is a 79 year old female who was admitted to the [facility] in the overnight hours of 03/30/20 for atrial fibrillation with RVR. Patient presented to the ER on evening of 03/29/20 by EMS for SOB and weakness. She had a history notable for recent onset of chills, cough, low grade fever, and weakness. Outpatient COVID testing resulted on 03/29/20 and was negative. Repeat COVID testing on 03/29/20 Negative. She had reportedly stopped taking her bumex and zaroxolyn at home so she would not have to void as frequently. ER work-up pertinent for atrial fibrillation with RVR and elevated dimer at 2,410. CT of the chest negative for PE with no evidence of active pneumonia. (Of note there was a hypodense lesion within the right hepatic lobe not completely elevated with recommended dedicated multiphase CT of the liver versus MRI on a nonemergent basis). Initial chest x-ray subtle left retrocardiac opacity, nonspecific. WBC in the ER 12.03 with bands. Supratherapeutic INR at 3.6. BNP 352. Sodium 132. BUN25, Creatinine 0.87, GFR >60. normal lactic. normal CK and normal serial trop. Significant concerns regarding medication compliance noted. Patient was admitted to the hospital inpatient. She was given IV Cardizem and started on digoxin. Patient was on cardizem 9.375mg PO BID. She was restarted on carvedilol and has been titrated up on dosing, currently at 6.25mg PO BID. Patient did have some mild hypotension which improved with rate control. On 03/31/20 WBC increase to 24.66 with left shift. Repeat Chest x-ray done showing early pneumonia of the left lower base. Patient on Azithromycin in addition to Rocephin for CAP. procalcitonin markedly elevated. Renal function noted to be elevated- increased BUN to 52, creatinine 1.99, GFR 24 with decreased urine output. Patient with clinical signs of volume depletion. Diuretics continued to be held and patient given 500ml NS bolus and gentle IVF. Urine output increased, blood pressures improved, and HR improved to <100. Patient noted to be complaining of on and off RLQ stating "i do not have it all the time". she remained afebrile. CT not completed due to renal parameters. Patient monitored closely. H 04/01/20- Worsening of renal function with BUN 65, creatinine 2.32, GFR 20; qu estion cardiorenal component. Urine output 520 over the last 24 hours however +3,236. Weight up 10 pounds. baseline weight is unclear per patient. repeat BNP at 246 which is improved from admission however now with signs of pitting peripheral edema, abdominal edema, weight gain. WBC improved slightly from 24.66 to 19.17, with left shift. mild worsening of chronic hyponatremia Na+124, K+ 5.0. Random urine sodium 11.0, urine osmolality 351. Patient continues to complain of primarily RLQ and RUQ abdominal pain. patient states that pain has worsened but is not constant. she has had intermittent nausea now requiring zofran 3 times over the course of 24 hours. Abdomen more distended per patient and staff. Last BM on admission. Lactic acid done and normal. CRP elevated at 35, no prior for trend. direct bilirubin mildly increased at 0.5. AST, ALT, and total bili normal. Staff report increasing weakness and overall decline in the last 24 hours. Blood culture showing no growth. Chronic conditions: # CKD stage 3- Baseline creatinine <1 # HLD- simvastatin. # Chronic atrial fibrillation # history of breast cancer, left outer breast- # DM- Last A1C low at 5.6. Home metformin and basaglar on hold # Microalbuminuria- recently started on low dose ANKUR as an outpatient which patient stopped. ANKUR remains on hold due to renal impairment at time of discharge. # Hyperuricemia- allopurinol. # Vitamin B12 deficiency- on supplementation. # Iron deficiency with anemia/ Anemia of chronic disease- history of non compliance. PO iron supplementation BID every other day with vitamin C source. on hold d/t nausea # Obesity # chronic hyponatremia # Former smoker. Reports quitting in 2007. Smoked for 40 years at 1PPD. Discharge/Disposition: Call placed to [facility] regarding patient overall status including history, admission course, and progressively worsening renal function and increase in abdominal pain with increase in nausea. CT of the abdomen/pelvis unable to be completed due to renal status and contrast contraindication. Ultrasound is unavailable in the [facility] and without subspeciality care including cardiology, nephrology unavailable. Patient to be transferred to [facility]. - Discharge Plan *PRESCRIPTION DRUG MONITORING PROGRAM REVIEWED*: Not Applicable *COPY OF PRESCRIPTION DRUG MONITORING REPORT IN PATIENT ALBA: Not Applicable Home Medications: Home Meds Bumetanide 1 mg PO ASDIRECTED 01/02/17 [History] Omeprazole 20 mg PO QAM 01/02/17 [History] Simvastatin [Zocor] 40 mg PO QAM 01/02/17 [History] Warfarin Sodium 5 mg PO ASDIRECTED 01/02/17 [History] carvediloL [Carvedilol] 9.375 mg PO BIDMEALS 01/02/17 [History] metOLazone [Metolazone] 1.25 mg PO ASDIRECTED 01/02/17 [History] Calcium Carbonate/Vitamin D3 [Calcium 600-Vit D3 500 Softgel] 1 tab PO QAM 03/08/18 [History] Cyanocobalamin (Vitamin B-12) [B-12] 1,000 mcg PO Q48H 03/08/18 [History] Ferrous Fumarate/Vitamin C [Vitron-C] 2 tab PO Q48H 03/08/18 [History] allopurinoL [Zyloprim] 200 mg PO QAM 03/08/18 [History] Insulin Glargine,Hum.Rec.Anlog [Basaglar Kwikpen U-100] 8 units SQ BEDTIME 02/14/20 [History] metFORMIN [Glucophage XR] 1,500 mg PO QAM 02/14/20 [History] Ferrous Sulfate [Ferosul] 325 mg PO BID 03/29/20 [History] Forms: ED Department Discharge Referrals: Maggie Holland NP [Primary Care Provider] - Valerie Foote MD [Physician] - - Discharge Summary/Plan Comment DC Time >30 min.: Yes - General Info Date of Service: 04/01/20 Functional Status: Reports: New Symptoms (increase nausea and abdominal pain) - Review of Systems General: Reports: Weakness, Fatigue, Malaise, Chills, Appetite. Denies: Fever HEENT: Reports: Glasses. Denies: Headaches Pulmonary: Reports: Shortness of Breath, Cough, Sputum. Denies: Wheezing Cardiovascular: Reports: Dyspnea on Exertion, Edema. Denies: Chest Pain, Palpitations Gastrointestinal: Reports: Abdominal Pain, Decreased Appetite, Nausea. Denies: Hematochezia, Vomiting Skin: Reports: No Symptoms Neurological: Reports: Weakness. Denies: Confusion Psychiatric: Reports: No Symptoms - Patient Data Vitals - Most Recent: Last Vital Signs Temp 97.1 F 04/01/20 05:00 Pulse 94 04/01/20 09:00 Resp 21 H 04/01/20 09:00 BP 118/61 04/01/20 09:00 Pulse Ox 97 04/01/20 08:00 Weight - Most Recent: 241 lb I&O - Last 24 hours: Intake & Output 03/31/20 04/01/20 04/01/20 22:59 06:59 14:59 Intake Total 1072 1004 Output Total 190 230 Balance 882 774 Lab Results - Last 24 hrs: Laboratory Results - last 24 hr 03/31/20 03/31/20 03/31/20 Range/Units 07:17 11:45 11:45 WBC (5.00-10.00) 10^3/uL RBC (3.80-5.50) 10^6/uL Hgb (12.0-16.0) g/dL Hct (37.0-47.0) % MCV (82.0-92.0) fL MCH (27.0-31.0) pg MCHC (32.0-36.0) g/dL RDW (11.5-14.5) % Plt Count (150-400) 10^3/uL MPV (7.4-10.4) fL Immature Gran % (Auto) (0.0-5.0) % Neut % (Auto) (50.0-70.0) % Lymph % (Auto) (20.0-40.0) % [place] % (Auto) (2.0-8.0) % Eos % (Auto) (1.0-3.0) % Baso % (Auto) (0.0-1.0) % Neut # (Auto) (2.50-7.00) 10^3/uL Lymph # (Auto) (1.00-4.00) 10^3/uL [place] # (Auto) (0.10-0.80) 10^3/uL Eos # (Auto) (0.10-0.30) 10^3/uL Baso # (Auto) (0.00-0.10) 10^3/uL Immature Gran # (Auto) (0.00-0.50) 10^3/uL Sodium (136-145) mmol/L Potassium (3.3-5.3) mmol/L Chloride (98-115) mmol/L Carbon Dioxide (21.0-32.0) mmol/L Anion Gap (5-15) mmol/L BUN (6-25) mg/dL Creatinine (0.51-1.17) mg/dL Est Cr Clr Drug Dosing mL/min Estimated GFR (MDRD) mL/min Glucose (75 - 99) mg/dL POC Glucose (74-100) mg/dL Serum Osmolality 278 (275-295) mosm/kg Lactic Acid (0.4-2.0) mmol/L Calcium (8.7-10.3) mg/dL Magnesium (1.8-2.4) mg/dL C-Reactive Protein (0.0-0.9) mg/dL B-Natriuretic Peptide (0-100) pg/mL Specimen Type Urinvoid Urine Color Yellow (YELLOW) Urine Appearance Cloudy H (CLEAR) Urine pH 5.0 (5.0-9.0) Ur Specific [place] 1.015 (1.005-1.030) Urine Protein 30 H (NEGATIVE) mg/dL Urine Glucose (UA) Negative (NEGATIVE) mg/dL Urine Ketones Trace H (NEGATIVE) mg/dL Urine Occult Blood Trace-intact H (NEGATIVE) Urine Nitrite Negative (NEGATIVE) Urine Bilirubin Small H (NEGATIVE) Urine Urobilinogen 1.0 (0.2-1.0) E.U./dL Ur Leukocyte Esterase Small H (NEGATIVE) Urine RBC 0-5 (0-5) /HPF Urine WBC 5-10 H (0-5) /HPF Ur Epithelial Cells Many H /LPF Urine Bacteria Moderate H (NONE TO FEW) /HPF Urine Osmolality (300-900) mosm/kg Ur Random Sodium 11.0 L (40.0-220.0) mmol/L 03/31/20 03/31/20 03/31/20 Range/Units 11:45 11:51 17:54 WBC (5.00-10.00) 10^3/uL RBC (3.80-5.50) 10^6/uL Hgb (12.0-16.0) g/dL Hct (37.0-47.0) % MCV (82.0-92.0) fL MCH (27.0-31.0) pg MCHC (32.0-36.0) g/dL RDW (11.5-14.5) % Plt Count (150-400) 10^3/uL MPV (7.4-10.4) fL Immature Gran % (Auto) (0.0-5.0) % Neut % (Auto) (50.0-70.0) % Lymph % (Auto) (20.0-40.0) % [place] % (Auto) (2.0-8.0) % Eos % (Auto) (1.0-3.0) % Baso % (Auto) (0.0-1.0) % Neut # (Auto) (2.50-7.00) 10^3/uL Lymph # (Auto) (1.00-4.00) 10^3/uL [place] # (Auto) (0.10-0.80) 10^3/uL Eos # (Auto) (0.10-0.30) 10^3/uL Baso # (Auto) (0.00-0.10) 10^3/uL Immature Gran # (Auto) (0.00-0.50) 10^3/uL Sodium (136-145) mmol/L Potassium (3.3-5.3) mmol/L Chloride (98-115) mmol/L Carbon Dioxide (21.0-32.0) mmol/L Anion Gap (5-15) mmol/L BUN (6-25) mg/dL Creatinine (0.51-1.17) mg/dL Est Cr Clr Drug Dosing mL/min Estimated GFR (MDRD) mL/min Glucose (75 - 99) mg/dL POC Glucose 176 H 152 H (74-100) mg/dL Serum Osmolality (275-295) mosm/kg Lactic Acid (0.4-2.0) mmol/L Calcium (8.7-10.3) mg/dL Magnesium (1.8-2.4) mg/dL C-Reactive Protein (0.0-0.9) mg/dL B-Natriuretic Peptide (0-100) pg/mL Specimen Type Urine Color (YELLOW) Urine Appearance (CLEAR) Urine pH (5.0-9.0) Ur Specific [place] (1.005-1.030) Urine Protein (NEGATIVE) mg/dL Urine Glucose (UA) (NEGATIVE) mg/dL Urine Ketones (NEGATIVE) mg/dL Urine Occult Blood (NEGATIVE) Urine Nitrite (NEGATIVE) Urine Bilirubin (NEGATIVE) Urine Urobilinogen (0.2-1.0) E.U./dL Ur Leukocyte Esterase (NEGATIVE) Urine RBC (0-5) /HPF Urine WBC (0-5) /HPF Ur Epithelial Cells /LPF Urine Bacteria (NONE TO FEW) /HPF Urine Osmolality 351 (300-900) mosm/kg Ur Random Sodium (40.0-220.0) mmol/L 03/31/20 04/01/20 04/01/20 Range/Units 20:45 07:20 07:20 WBC 19.17 H (5.00-10.00) 10^3/uL RBC 3.67 L (3.80-5.50) 10^6/uL Hgb 10.8 L (12.0-16.0) g/dL Hct 33.2 L (37.0-47.0) % MCV 90.5 (82.0-92.0) fL MCH 29.4 (27.0-31.0) pg MCHC 32.5 (32.0-36.0) g/dL RDW 15.8 H (11.5-14.5) % Plt Count 345 (150-400) 10^3/uL MPV 10.3 (7.4-10.4) fL Immature Gran % (Auto) 0.7 (0.0-5.0) % Neut % (Auto) 87.6 H (50.0-70.0) % Lymph % (Auto) 3.5 L (20.0-40.0) % [place] % (Auto) 8.0 (2.0-8.0) % Eos % (Auto) 0.1 L (1.0-3.0) % Baso % (Auto) 0.1 (0.0-1.0) % Neut # (Auto) 16.79 H (2.50-7.00) 10^3/uL Lymph # (Auto) 0.68 L (1.00-4.00) 10^3/uL [place] # (Auto) 1.54 H (0.10-0.80) 10^3/uL Eos # (Auto) 0.01 L (0.10-0.30) 10^3/uL Baso # (Auto) 0.02 (0.00-0.10) 10^3/uL Immature Gran # (Auto) 0.13 (0.00-0.50) 10^3/uL Sodium 124 L (136-145) mmol/L Potassium 5.0 (3.3-5.3) mmol/L Chloride 92 L (98-115) mmol/L Carbon Dioxide 22.6 (21.0-32.0) mmol/L Anion Gap 14.4 (5-15) mmol/L BUN 65 H* (6-25) mg/dL Creatinine 2.32 H (0.51-1.17) mg/dL Est Cr Clr Drug Dosing 17.54 mL/min Estimated GFR (MDRD) 20 mL/min Glucose 137 H (75 - 99) mg/dL POC Glucose 163 H (74-100) mg/dL Serum Osmolality (275-295) mosm/kg Lactic Acid (0.4-2.0) mmol/L Calcium 8.7 (8.7-10.3) mg/dL Magnesium (1.8-2.4) mg/dL C-Reactive Protein (0.0-0.9) mg/dL B-Natriuretic Peptide (0-100) pg/mL Specimen Type Urine Color (YELLOW) Urine Appearance (CLEAR) Urine pH (5.0-9.0) Ur Specific [place] (1.005-1.030) Urine Protein (NEGATIVE) mg/dL Urine Glucose (UA) (NEGATIVE) mg/dL Urine Ketones (NEGATIVE) mg/dL Urine Occult Blood (NEGATIVE) Urine Nitrite (NEGATIVE) Urine Bilirubin (NEGATIVE) Urine Urobilinogen (0.2-1.0) E.U./dL Ur Leukocyte Esterase (NEGATIVE) Urine RBC (0-5) /HPF Urine WBC (0-5) /HPF Ur Epithelial Cells /LPF Urine Bacteria (NONE TO FEW) /HPF Urine Osmolality (300-900) mosm/kg Ur Random Sodium (40.0-220.0) mmol/L 04/01/20 04/01/20 04/01/20 Range/Units 07:20 07:20 07:20 WBC (5.00-10.00) 10^3/uL RBC (3.80-5.50) 10^6/uL Hgb (12.0-16.0) g/dL Hct (37.0-47.0) % MCV (82.0-92.0) fL MCH (27.0-31.0) pg MCHC (32.0-36.0) g/dL RDW (11.5-14.5) % Plt Count (150-400) 10^3/uL MPV (7.4-10.4) fL Immature Gran % (Auto) (0.0-5.0) % Neut % (Auto) (50.0-70.0) % Lymph % (Auto) (20.0-40.0) % [place] % (Auto) (2.0-8.0) % Eos % (Auto) (1.0-3.0) % Baso % (Auto) (0.0-1.0) % Neut # (Auto) (2.50-7.00) 10^3/uL Lymph # (Auto) (1.00-4.00) 10^3/uL [place] # (Auto) (0.10-0.80) 10^3/uL Eos # (Auto) (0.10-0.30) 10^3/uL Baso # (Auto) (0.00-0.10) 10^3/uL Immature Gran # (Auto) (0.00-0.50) 10^3/uL Sodium (136-145) mmol/L Potassium (3.3-5.3) mmol/L Chloride (98-115) mmol/L Carbon Dioxide (21.0-32.0) mmol/L Anion Gap (5-15) mmol/L BUN (6-25) mg/dL Creatinine (0.51-1.17) mg/dL Est Cr Clr Drug Dosing mL/min Estimated GFR (MDRD) mL/min Glucose (75 - 99) mg/dL POC Glucose (74-100) mg/dL Serum Osmolality (275-295) mosm/kg Lactic Acid 1.0 (0.4-2.0) mmol/L Calcium (8.7-10.3) mg/dL Magnesium (1.8-2.4) mg/dL C-Reactive Protein 35.0 H (0.0-0.9) mg/dL B-Natriuretic Peptide 246 H (0-100) pg/mL Specimen Type Urine Color (YELLOW) Urine Appearance (CLEAR) Urine pH (5.0-9.0) Ur Specific [place] (1.005-1.030) Urine Protein (NEGATIVE) mg/dL Urine Glucose (UA) (NEGATIVE) mg/dL Urine Ketones (NEGATIVE) mg/dL Urine Occult Blood (NEGATIVE) Urine Nitrite (NEGATIVE) Urine Bilirubin (NEGATIVE) Urine Urobilinogen (0.2-1.0) E.U./dL Ur Leukocyte Esterase (NEGATIVE) Urine RBC (0-5) /HPF Urine WBC (0-5) /HPF Ur Epithelial Cells /LPF Urine Bacteria (NONE TO FEW) /HPF Urine Osmolality (300-900) mosm/kg Ur Random Sodium (40.0-220.0) mmol/L 04/01/20 04/01/20 Range/Units 07:20 07:24 WBC (5.00-10.00) 10^3/uL RBC (3.80-5.50) 10^6/uL Hgb (12.0-16.0) g/dL Hct (37.0-47.0) % MCV (82.0-92.0) fL MCH (27.0-31.0) pg MCHC (32.0-36.0) g/dL RDW (11.5-14.5) % Plt Count (150-400) 10^3/uL MPV (7.4-10.4) fL Immature Gran % (Auto) (0.0-5.0) % Neut % (Auto) (50.0-70.0) % Lymph % (Auto) (20.0-40.0) % [place] % (Auto) (2.0-8.0) % Eos % (Auto) (1.0-3.0) % Baso % (Auto) (0.0-1.0) % Neut # (Auto) (2.50-7.00) 10^3/uL Lymph # (Auto) (1.00-4.00) 10^3/uL [place] # (Auto) (0.10-0.80) 10^3/uL Eos # (Auto) (0.10-0.30) 10^3/uL Baso # (Auto) (0.00-0.10) 10^3/uL Immature Gran # (Auto) (0.00-0.50) 10^3/uL Sodium (136-145) mmol/L Potassium (3.3-5.3) mmol/L Chloride (98-115) mmol/L Carbon Dioxide (21.0-32.0) mmol/L Anion Gap (5-15) mmol/L BUN (6-25) mg/dL Creatinine (0.51-1.17) mg/dL Est Cr Clr Drug Dosing mL/min Estimated GFR (MDRD) mL/min Glucose (75 - 99) mg/dL POC Glucose 136 H (74-100) mg/dL Serum Osmolality (275-295) mosm/kg Lactic Acid (0.4-2.0) mmol/L Calcium (8.7-10.3) mg/dL Magnesium 1.5 L (1.8-2.4) mg/dL C-Reactive Protein (0.0-0.9) mg/dL B-Natriuretic Peptide (0-100) pg/mL Specimen Type Urine Color (YELLOW) Urine Appearance (CLEAR) Urine pH (5.0-9.0) Ur Specific [place] (1.005-1.030) Urine Protein (NEGATIVE) mg/dL Urine Glucose (UA) (NEGATIVE) mg/dL Urine Ketones (NEGATIVE) mg/dL Urine Occult Blood (NEGATIVE) Urine Nitrite (NEGATIVE) Urine Bilirubin (NEGATIVE) Urine Urobilinogen (0.2-1.0) E.U./dL Ur Leukocyte Esterase (NEGATIVE) Urine RBC (0-5) /HPF Urine WBC (0-5) /HPF Ur Epithelial Cells /LPF Urine Bacteria (NONE TO FEW) /HPF Urine Osmolality (300-900) mosm/kg Ur Random Sodium (40.0-220.0) mmol/L ROSA Results - Last 24 hrs: Microbiology 03/30/20 09:00 Respiratory Culture - Final Sputum - Expectorated Gram Stain - Final 03/29/20 22:40 Aerobic Blood Culture - Preliminary Blood - Arm, Left NO GROWTH AFTER 2 DAYS Anaerobic Blood Culture - Preliminary NO GROWTH AFTER 2 DAYS Med Orders - Current: Current Medications Acetaminophen (Tylenol) 650 mg PO Q4H PRN PRN Reason: Pain Allopurinol (Zyloprim) 200 mg PO QAM [facility] Last Admin: 04/01/20 08:59 Dose: 200 mg Documented by: Bisacodyl (Dulcolax) 5 - 10 mg PO DAILY PRN PRN Reason: Constipation Carvedilol (Coreg) 6.25 mg PO BIDMEALS [facility] Last Admin: 04/01/20 07:51 Dose: 6.25 mg Documented by: Ceftriaxone Sodium (Rocephin) 1 gm IVPUSH Q24H [facility] Last Admin: 03/31/20 10:20 Dose: 1 gm Documented by: Cyanocobalamin (Vitamin B12) 1,000 mcg PO Q48H [facility] Last Admin: 03/30/20 10:58 Dose: 1,000 mcg Documented by: Digoxin (Lanoxin) 125 mcg PO DAILY [facility] Last Admin: 04/01/20 08:59 Dose: 125 mcg Documented by: Sodium Chloride (Normal Saline) 100 mls @ 200 mls/hr IV ASDIRECTED [facility] Last Admin: 03/29/20 23:00 Dose: 200 mls/hr Documented by: Sodium Chloride (Normal Saline) 500 mls @ 500 mls/hr IV ASDIRECTED [facility] Last Admin: 03/31/20 09:16 Dose: 500 mls/hr Documented by: Sodium Chloride (Normal Saline) 1,000 mls @ 90 mls/hr IV ASDIRECTED [facility] Last Admin: 04/01/20 08:59 Dose: 90 mls/hr Documented by: Azithromycin 500 mg/ Sodium (Chloride) 250 mls @ 250 mls/hr IV Q24H [facility] Last Admin: 03/31/20 11:30 Dose: 250 mls/hr Documented by: Omeprazole (Omeprazole) 20 mg PO QAM [facility] Last Admin: 04/01/20 08:33 Dose: Not Given Documented by: Ondansetron HCl (Zofran) 4 mg IVPUSH Q4H PRN PRN Reason: Nausea/Vomiting Last Admin: 03/31/20 23:12 Dose: 4 mg Documented by: Sodium Chloride (Saline Flush) 10 ml FLUSH Q8HR PRN PRN Reason: keep vein open Last Admin: 03/29/20 21:15 Dose: 10 ml Documented by: Discontinued Medications Bisacodyl (Dulcolax) 5 mg PO DAILY PRN PRN Reason: Constipation Last Admin: 04/01/20 07:51 Dose: 5 mg Documented by: Carvedilol (Coreg) 3.125 mg PO BIDMEALS [facility] Last Admin: 03/31/20 08:05 Dose: 3.125 mg Documented by: Carvedilol (Coreg) 3.125 mg PO ONETIME ONE Stop: 03/31/20 08:57 Last Admin: 03/31/20 09:15 Dose: 3.125 mg Documented by: Digoxin (Lanoxin) 250 mcg PO ONETIME ONE Stop: 03/30/20 10:41 Last Admin: 03/30/20 12:01 Dose: 250 mcg Documented by: Digoxin (Lanoxin) 125 mcg PO ONETIME ONE Stop: 03/30/20 18:01 Last Admin: 03/30/20 17:57 Dose: 125 mcg Documented by: Digoxin (Lanoxin) 125 mcg PO ONETIME ONE Stop: 03/31/20 00:06 Last Admin: 03/30/20 23:44 Dose: Not Given Documented by: Digoxin (Lanoxin) 125 mcg PO ONETIME ONE Stop: 03/31/20 10:02 Last Admin: 03/31/20 10:21 Dose: 125 mcg Documented by: Diltiazem HCl (Diltiazem) 20 mg IVPUSH ONETIME ONE Stop: 03/29/20 21:11 Last Admin: 03/29/20 21:30 Dose: 20 mg Documented by: Diltiazem HCl (Diltiazem) 5 mg IVPUSH ONETIME ONE Stop: 03/30/20 01:20 Last Admin: 03/30/20 01:43 Dose: Not Given Documented by: Diltiazem HCl 125 mg/ Sodium (Chloride) 125 mls @ 5 mls/hr IV TITRATE [facility]; Protocol Last Admin: 03/29/20 23:33 Dose: 5 mg/hr, 5 mls/hr Documented by: Sodium Chloride (Normal Saline) 250 mls @ 999 mls/hr IV ONETIME ONE Stop: 03/30/20 11:00 Last Admin: 03/30/20 10:38 Dose: 999 mls/hr Documented by: Iopamidol (Isovue-[id number] (76%)) 100 ml IV ONETIME ONE Stop: 03/29/20 23:15 Last Admin: 03/29/20 23:00 Dose: 75 ml Documented by: Ondansetron HCl (Zofran) 4 mg IVPUSH ONETIME ONE Stop: 03/30/20 08:19 Last Admin: 03/30/20 08:29 Dose: 4 mg Documented by: - Exam Quality Assessment: Reports: Supplemental Oxygen General: Reports: Alert, Oriented, Other (patient is ill appearing.) Neck: Reports: Supple Lungs: Reports: Crackles (fine crackles noted to bilateral lower lobes) Cardiovascular: Reports: Irregular Rhythm, Tachycardia (rate regular to mildly tachycardic) GI/Abdominal Exam: Normal Bowel Sounds, Distended, Tender. No: Rebound (edema to the abdomen noted. abdomen is mildly distended from baseline. There is notable tenderness to palpation of the RLQ and RUQ. Independence sign negative. No rebound tenderness. abdomen semifirm) (Female) Exam: Deferred Rectal (Female) Exam: Deferred Extremities: Pedal Edema (2+ pitting pretibial and ankle edema. ). No: Redness Skin: Reports: Warm, Dry, Intact Psy/Mental Status: Reports: Alert Physical Findings Comments:: Patient is Obese. She is ill appearing. There is generalized weakness and patient requiring moderate assist with transferring, previously independent.
[2020-04-01] MEDS: Cyanocobalamin (Vitamin B12) 500 MCG Tab PO SCH (10:00)
[2020-04-01] MEDS: cefTRIAXone 1 GM Vial IVPUSH SCH (10:00)
[2020-04-01] MEDS: Azithromycin 500 MG in Sodium Chloride 0.9% 250 ML IV SCH (10:19)
== END 2020-04-01 11:10 | DRG 871 ==
LOC: SUPCPDRO 20:45 → KA.ED 20:45 → KA.MS 23:54 → UNDOADMIN 23:55
PROVIDERS: ADMIT Family Medicine; ATTEND Family Medicine
DX: I48.91 Unspecified atrial fibrillation (principal); R79.89 Other specified abnormal findings of blood chemistry; A41.9 Sepsis, unspecified organism; J18.9 Pneumonia, unspecified organism; E87.8 Other disorders of electrolyte and fluid balance, not elsewhere classified; I50.33 Acute on chronic diastolic (congestive) heart failure; I13.0 Hypertensive heart and chronic kidney disease with heart failure and stage 1 through stage 4 chronic kidney disease, or unspecified chronic kidney disease; E87.1 Hypo-osmolality and hyponatremia; N17.9 Acute kidney failure, unspecified; I11.0 Hypertensive heart disease with heart failure; I50.9 Heart failure, unspecified; I48.20 Chronic atrial fibrillation, unspecified; Z68.41 Body mass index [BMI] 40.0-44.9, adult; E11.69 Type 2 diabetes mellitus with other specified complication; E53.8 Deficiency of other specified B group vitamins; Z92.3 Personal history of irradiation; E11.22 Type 2 diabetes mellitus with diabetic chronic kidney disease; Z20.828 Contact with and (suspected) exposure to other viral communicable diseases; N18.30 Chronic kidney disease, stage 3 unspecified; D63.1 Anemia in chronic kidney disease; E66.9 Obesity, unspecified; M10.9 Gout, unspecified; I89.0 Lymphedema, not elsewhere classified; E11.51 Type 2 diabetes mellitus with diabetic peripheral angiopathy without gangrene; E78.5 Hyperlipidemia, unspecified; E79.0 Hyperuricemia without signs of inflammatory arthritis and tophaceous disease; D50.9 Iron deficiency anemia, unspecified; H54.7 Unspecified visual loss; E78.00 Pure hypercholesterolemia, unspecified; K21.9 Gastro-esophageal reflux disease without esophagitis; M19.90 Unspecified osteoarthritis, unspecified site; Z90.710 Acquired absence of both cervix and uterus; Z91.14 Patient's other noncompliance with medication regimen; Z85.3 Personal history of malignant neoplasm of breast; Z87.891 Personal history of nicotine dependence; Z79.01 Long term (current) use of anticoagulants; Z79.899 Other long term (current) drug therapy; Z79.4 Long term (current) use of insulin; Z98.49 Cataract extraction status, unspecified eye
CPT/HCPCS: 36415; 36416; 71045; 71260; 80048; 80053; 80076; 81001; 82550; 82553; 82570; 82962; 83605; 83735; 83880; 83930; 83935; 84145; 84300; 84443; 84484; 85025; 85379; 85610; 85730; 86140; 87040; 87070; 87205; 93005; 96365; 96376; 99284; 99285-25; A9270-GY; J0456; J0696; J2405; J3490; J7030; J7040; J7050; Q9967; U0002

== ENCOUNTER 2020-06-02 12:28 | Emergency (ER) | payer MEDICARE, OTHER ==
--- NOTE | 2020-06-02 13:08 | EDM.PDOC ---
ED HPI GENERAL MEDICAL PROBLEM - General Time Seen by Provider: 06/02/20 12:54 Source of Information: Reports: Patient, Prison Records History Limitations: Reports: No Limitations - History of Present Illness INITIAL COMMENTS - FREE TEXT/NARRATIVE: Patient presents via ambulance from [facility] with report of dark/bloody (?) stools and tachycardia today. Patient isn't aware of any blood in her stools but says she has had diarrhea 2-3x/day for a week, since her first chemotherapy treatment. She was recently found to have cancer in a few different spots but the primary is not known yet. She is on warfarin for A Fib and last INR was 2.09 yesterday per patient. She says she drinks about 4 cups of water daily. She denies any pain. - Related Data Allergies Allergy/AdvReac Type Severity Reaction Status Date / Time No Known Drug Allergies Allergy Cannot Verified 06/02/20 13:05 Remember Home Meds: Home Meds Bumetanide 2 mg PO DAILY 01/02/17 [History] Omeprazole 20 mg PO QAM 01/02/17 [History] Simvastatin [Zocor] 40 mg PO QAM 01/02/17 [History] Warfarin Sodium 5 mg PO ASDIRECTED 01/02/17 [History] metOLazone [Metolazone] 1.25 mg PO ASDIRECTED 01/02/17 [History] Calcium Carbonate/Vitamin D3 [Calcium 600-Vit D3 500 Softgel] 1 tab PO QAM 03/08/18 [History] Cyanocobalamin (Vitamin B-12) [B-12] 1,000 mcg PO Q48H 03/08/18 [History] allopurinoL [Zyloprim] 200 mg PO QAM 03/08/18 [History] Insulin Glargine,Hum.Rec.Anlog [Basaglar Kwikpen U-100] 18 units SQ BEDTIME 02/14/20 [History] metFORMIN [Glucophage XR] 1,500 mg PO QAM 02/14/20 [History] Ferrous Sulfate [Ferosul] 325 mg PO BID 03/29/20 [History] Acetaminophen [Tylenol] 650 mg PO BEDTIME 06/02/20 [History] Carboxymethylcellulose Sodium [Artificial Tears] 1.4 ml OP Q2HR PRN 06/02/20 [History] Ferrous Fumarate/Vitamin C [Vitron-C] 1 tab PO BID 06/02/20 [History] Magnesium Chloride [Slow-Mag] 2 tab PO DAILY 06/02/20 [History] Metoprolol Tartrate 25 mg PO BID 06/02/20 [History] Ondansetron [Zofran ODT] 8 mg PO Q8HR PRN 06/02/20 [History] Prochlorperazine Maleate [Compazine] 10 mg PO Q6HR PRN 06/02/20 [History] Sennosides [Senna] 1 tab PO DAILY 06/02/20 [History] lisinopriL [Prinivil] 2.5 mg PO DAILY 06/02/20 [History] Past Medical History HEENT History: Reports: Cataract, Impaired Vision Cardiovascular History: Reports: Afib, Heart Failure, High Cholesterol, Hypertension, SOB on Exertion Respiratory History: Reports: Other (See Below) Other Respiratory History: SOB with going up and down stairs Gastrointestinal History: Reports: GERD Genitourinary History: Reports: Renal Disease, Other (See Below) Other Genitourinary History: 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: Musculoskeletal History: Reports: Arthritis Endocrine/Metabolic History: Reports: Diabetes, Type II, IDDM, Obesity/BMI 30+ Hematologic History: Reports: Anticoagulation Therapy, B12 Deficiency Oncologic (Cancer) History: Reports: Breast, Other (See Below) Other Oncologic History: lumpectomy with radiation - Infectious Disease History Infectious Disease History: Reports: Chicken Pox, Measles - Past Surgical History HEENT Surgical History: Reports: Cataract Surgery Cardiovascular Surgical History: Reports: None Respiratory Surgical History: Reports: None GI Surgical History: Reports: Colonoscopy Female Surgical History: Reports: Breast Biopsy, Hysterectomy Endocrine Surgical History: Reports: None Musculoskeletal Surgical History: Reports: None Oncologic Surgical History: Reports: Lumpectomy - Past Imaging History Past Imaging History: Reports: Cardiac Echo, Xray Social & Family History - Family History Family Medical History: No Pertinent Family History - Caffeine Use Caffeine Use: Reports: Coffee ED ROS GENERAL - Review of Systems Review Of Systems: See Below Constitutional: Reports: Weakness (feels weaker the past few days). Denies: Fever, Chills, Malaise HEENT: Denies: Ear Pain, Throat Pain, Vision Change Respiratory: Denies: Shortness of Breath, Cough Cardiovascular: Denies: Chest Pain, Lightheadedness, Syncope GI/Abdominal: Reports: Diarrhea. Denies: Abdominal Pain, Constipation, Nausea, Vomiting : Reports: Dysuria (off and on for awhile; doesn't generally get UTIs) Musculoskeletal: Denies: Neck Pain, Shoulder Pain, Arm Pain, Back Pain Skin: Denies: Cyanosis, Jaundice, Mottled, Pallor, Diaphoresis Neurological: Denies: Confusion, Dizziness, Headache, Seizure, Syncope, Trouble Speaking Psychiatric: Denies: Agitation, Anxiety, Confusion Hematologic/Lymphatic: Reports: Easy Bleeding (on warfarin) ED EXAM, GI/ABD - Physical Exam Exam: See Below Exam Limited By: No Limitations General Appearance: Alert, WD/WN, No Apparent Distress Eyes: Bilateral: Normal Appearance, EOMI Ears: Normal External Exam, Hearing Grossly Normal Nose: Normal Inspection, Other (bit of dried blood but no active bleeding; patient says she had a nosebleed earlier from the dry air) Throat/Mouth: Normal Inspection, Normal Lips, Normal Voice, No Airway Compromise Head: Atraumatic, Normocephalic Neck: Normal Inspection, Full Range of Motion Respiratory/Chest: No Respiratory Distress, Lungs Clear, Normal Breath Sounds, No Accessory Muscle Use Cardiovascular: Normal Peripheral Pulses, Regular Rate, Rhythm, No Gallop GI/Abdominal Exam: Soft, Non-Tender, No Organomegaly, No Distention Rectal (Female) Exam: Heme + Stool. No: Black Stool, Bloody Stool (not grossly obvious) Back Exam: Normal Inspection, Full Range of Motion Extremities: Pedal Edema (fairly recent she says; sometimes uses ANKUR wraps for it) Neurological: Alert, Oriented, Normal Cognition, No Motor/Sensory Deficits Psychiatric: Normal Affect, Normal Mood Skin Exam: Warm, Dry, Intact, Normal Color, No Rash Course - Vital Signs Last Recorded V/S: Last Vital Signs Temp 97.9 F 06/02/20 14:32 Pulse 97 06/02/20 14:32 Resp 18 06/02/20 14:32 BP 117/50 L 06/02/20 14:32 Pulse Ox 98 06/02/20 14:32 - Orders/Labs/Meds Labs: Laboratory Tests 06/02/20 06/02/20 06/02/20 Range/Units 13:00 13:00 13:00 WBC 7.03 D (5.00-10.00) 10^3/uL RBC 2.94 L (3.80-5.50) 10^6/uL Hgb 8.9 L D (12.0-16.0) g/dL Hct 27.1 L (37.0-47.0) % MCV 92.2 H (82.0-92.0) fL MCH 30.3 (27.0-31.0) pg MCHC 32.8 (32.0-36.0) g/dL RDW 15.9 H (11.5-14.5) % Plt Count 115 L D (150-400) 10^3/uL MPV 9.8 (7.4-10.4) fL Add Manual Diff Yes Neutrophils % (Manual) 83 H (50-70) % Band Neutrophils % 1 L (4-12) % Lymphocytes % (Manual) 13 L (20-40) % Monocytes % (Manual) 3 (2-8) % Absolute Neutrophils 5.9052 Lymphocytes # (Manual) 0.9139 Monocytes # (Manual) 0.2109 PT 47.6 H D (9.2-11.2) SEC INR 4.9 H* (0.9-1.1) APTT 61.4 H* (22.8-31.4) SEC Sodium 127 L (136-145) mmol/L Potassium 4.0 (3.5-5.1) mmol/L Chloride 94 L (98-107) mmol/L Carbon Dioxide 25.4 (21.0-32.0) mmol/L Anion Gap 11.6 (5-15) mmol/L BUN 56 H* (7-18) mg/dL Creatinine 1.47 H (0.51-1.17) mg/dL Est Cr Clr Drug Dosing 27.68 mL/min Estimated GFR (MDRD) 34 mL/min Glucose 164 H (70-140) mg/dL Calcium 9.3 (8.7-10.3) mg/dL Total Bilirubin 0.4 (0.2-1.0) mg/dL AST 14 L (15-37) U/L ALT 25 (14-63) U/L Alkaline Phosphatase 125 H (46-116) U/L Total Protein 5.9 L (6.4-8.2) g/dL Albumin 2.57 L (3.40-5.00) g/dL Specimen Type Urine Color (YELLOW) Urine Appearance (CLEAR) Urine pH (5.0-9.0) Ur Specific [place] (1.005-1.030) Urine Protein (NEGATIVE) mg/dL Urine Glucose (UA) (NEGATIVE) mg/dL Urine Ketones (NEGATIVE) mg/dL Urine Occult Blood (NEGATIVE) Urine Nitrite (NEGATIVE) Urine Bilirubin (NEGATIVE) Urine Urobilinogen (0.2-1.0) E.U./dL Ur Leukocyte Esterase (NEGATIVE) Urine RBC (0-5) /HPF Urine WBC (0-5) /HPF Ur Epithelial Cells /LPF Urine Bacteria (NONE TO FEW) /HPF 06/02/20 Range/Units 13:30 WBC (5.00-10.00) 10^3/uL RBC (3.80-5.50) 10^6/uL Hgb (12.0-16.0) g/dL Hct (37.0-47.0) % MCV (82.0-92.0) fL MCH (27.0-31.0) pg MCHC (32.0-36.0) g/dL RDW (11.5-14.5) % Plt Count (150-400) 10^3/uL MPV (7.4-10.4) fL Add Manual Diff Neutrophils % (Manual) (50-70) % Band Neutrophils % (4-12) % Lymphocytes % (Manual) (20-40) % Monocytes % (Manual) (2-8) % Absolute Neutrophils Lymphocytes # (Manual) Monocytes # (Manual) PT (9.2-11.2) SEC INR (0.9-1.1) APTT (22.8-31.4) SEC Sodium (136-145) mmol/L Potassium (3.5-5.1) mmol/L Chloride (98-107) mmol/L Carbon Dioxide (21.0-32.0) mmol/L Anion Gap (5-15) mmol/L BUN (7-18) mg/dL Creatinine (0.51-1.17) mg/dL Est Cr Clr Drug Dosing mL/min Estimated GFR (MDRD) mL/min Glucose (70-140) mg/dL Calcium (8.7-10.3) mg/dL Total Bilirubin (0.2-1.0) mg/dL AST (15-37) U/L ALT (14-63) U/L Alkaline Phosphatase (46-116) U/L Total Protein (6.4-8.2) g/dL Albumin (3.40-5.00) g/dL Specimen Type Urincath Urine Color Light yellow (YELLOW) Urine Appearance Turbid H (CLEAR) Urine pH 5.5 (5.0-9.0) Ur Specific [place] 1.015 (1.005-1.030) Urine Protein Trace H (NEGATIVE) mg/dL Urine Glucose (UA) Negative (NEGATIVE) mg/dL Urine Ketones Negative (NEGATIVE) mg/dL Urine Occult Blood Moderate H (NEGATIVE) Urine Nitrite Negative (NEGATIVE) Urine Bilirubin Negative (NEGATIVE) Urine Urobilinogen 0.2 (0.2-1.0) E.U./dL Ur Leukocyte Esterase Large H (NEGATIVE) Urine RBC 0-5 (0-5) /HPF Urine WBC Packed (0-5) /HPF Ur Epithelial Cells Few /LPF Urine Bacteria Many H (NONE TO FEW) /HPF Meds: Medications Discontinued Medications Generic Name Dose Route Start Last Admin Trade Name Freq PRN Reason Stop Dose Admin Sodium Chloride 1,000 mls @ 999 mls/hr 06/02/20 12:58 06/02/20 13:09 Normal Saline IV 06/02/20 13:58 999 mls/hr .BOLUS ONE Administration Trimethoprim/Sulfamethoxazole 1 tab 06/02/20 14:32 06/02/20 14:41 Septra Ds PO 06/02/20 14:33 1 tab ONETIME ONE Administration - Re-Assessments/Exams Free Text/Narrative Re-Assessment/Exam: 06/02/20 13:32 Hemoccult is positive. Hg is 8.9 which is lower than March 2020. BUN, Creatinine, GFR are abnormal but less than 2 months ago. I discussed the blood in stool and low hemoglobin with patient with possible need for transfer to [place] for diagnostic/therapeutic colonoscopy. She really doesn't like going to [place] and says she remembers being told that she has a cancerous mass in the distal colon. INR is still pending. 06/02/20 13:44 INR 4.9 06/02/20 14:35 Hg was 8.7 a week ago in [place]. I discussed case with Bebe Yoder, BRIGIDO and Dr. Manning, Oncologist and will let her go back to [place] with monitoring for ongoing bleeding, hold warfarin, use Imodium prn for diarrhea, recheck Hg on Sunday, treat UTI with Bactrim. Discussed findings and plan with patient and she is glad to be going back to [place]. She is going back to [place] on 06/14 for PICC placement and another biopsy (of pelvic mass) to rule out another primary cancer. [facility] will manage the INR going forward and Bebe will look into that. Patient stable. 06/02/20 14:46 Using Bactrim DS once a day for three days due to renal insufficiency as reviewed with Bebe. Following UC this can be altered if needed. 06/02/20 15:07 PTT is 61.4, but couldn't find any recent heparin or Lovenox, so may be from liver metastasis. Will recheck PTT along with hemoglobin in two days. Departure - Departure Time of Disposition: 14:42 Disposition: DC/Tfer to [facility] 03 Condition: Good Clinical Impression: Colon cancer metastasized to liver, Hypovolemia dehydration, UTI (urinary tract infection), uncomplicated GI bleed Qualifiers: GI bleed type/associated pathology: unspecified gastrointestinal hemorrhage type Qualified Code(s): K92.2 - Gastrointestinal hemorrhage, unspecified - Discharge Information Referrals: Maggie Holland NP [Primary Care Provider] - Additional Instructions: Drink 8 cups of water daily. Take the Bactrim daily as directed. Take the Imodium as directed if diarrhea recurs. Recheck Hemoglobin on Sunday. Hold warfarin until directed by Coumadin clinic. See PCP or ER if worsening. Sepsis Event Note (ED) - Focused Exam Vital Signs: Vital Signs Temp Pulse Resp BP Pulse Ox 06/02/20 14:32 97.9 F 97 18 117/50 L 98 06/02/20 14:21 98 F 92 14 109/54 L 96 06/02/20 14:00 98.5 F 113 H 14 115/53 L 96 06/02/20 13:45 98.1 F 96 15 120/45 L 97 06/02/20 13:00 99.1 F 108 H 20 106/52 L 96
[2020-06-02] MEDS: Sodium Chloride 0.9% 1,000 ML IV ONE (13:09)
[2020-06-02 13:27] LABS: ANION GAP 11.6 mmol/L (5-15)
[2020-06-02 13:44] LABS: PTT,PARTIAL THROMBOPLSTIN TIME 61.4 SEC (22.8-31.4)
[2020-06-02 14:33] VITALS: PULSE 97
[2020-06-02] MEDS: Sulfamethoxazole/Trimethoprim 800-160 MG Tab PO ONE (14:41)
[2020-06-02 15:28] VITALS: BP 124/51
== END 2020-06-02 16:50 ==
LOC: KA.ED 12:28
DX: K92.2 Gastrointestinal hemorrhage, unspecified (principal); C18.9 Malignant neoplasm of colon, unspecified; C78.7 Secondary malignant neoplasm of liver and intrahepatic bile duct; E86.0 Dehydration; E86.1 Hypovolemia; N39.0 Urinary tract infection, site not specified; I11.0 Hypertensive heart disease with heart failure; I50.9 Heart failure, unspecified; I48.91 Unspecified atrial fibrillation; E78.00 Pure hypercholesterolemia, unspecified; K21.9 Gastro-esophageal reflux disease without esophagitis; E11.9 Type 2 diabetes mellitus without complications; E66.9 Obesity, unspecified; Z68.42 Body mass index [BMI] 45.0-49.9, adult; Z79.01 Long term (current) use of anticoagulants; Z79.4 Long term (current) use of insulin; Z79.899 Other long term (current) drug therapy
CPT/HCPCS: 80053; 81001; 82272; 85025; 85610; 85730; 87077; 87086; 87088; 87186; 99285; A9270-GY; J7030

== ENCOUNTER 2020-07-13 09:21 | Inpatient (IN) | payer MEDICARE, OTHER ==
[~2020-07-13 09:21] MED LIST: Sodium Chloride 0.9% 250 ML IV SCH
[2020-07-13] MEDS ORDERED: IRINOTECAN IV SCH ×3 (13:30)
[2020-07-13] MEDS ORDERED: dexAMETHasone 12 MG in Sodium Chloride 0.9% 50 ML IV SCH (13:30)
[2020-07-13] MEDS ORDERED: DEXTROSE 5% IV SCH ×6 (13:30→14:00)
[2020-07-13] MEDS ORDERED: Atropine 0.4 MG/ML SDV IVPUSH SCH (13:30)
[2020-07-13] MEDS ORDERED: WATER IV SCH ×6 (13:30→14:00)
[2020-07-13] MEDS ORDERED: LEUCOVORIN CALCIUM IV SCH ×3 (14:00)
[2020-07-13] MEDS ORDERED: LEUCOVORIN IV SCH ×3 (14:00)
[2020-07-13] MEDS: Sodium Chloride 0.9% 20 ML SDV FLUSH SCH (15:15)
[2020-07-13] MEDS ORDERED: FLUOROURACIL IV SCH (15:30)
[2020-07-13] MEDS ORDERED: FLUOROURACIL IVPUSH SCH (15:30)
[2020-07-13] MEDS ORDERED: SODIUM CHLORIDE 0.9% IV SCH (15:30)
[2020-07-13] MEDS ORDERED: Ondansetron 4 MG Tab.DIS PO PRN (16:20)
[2020-07-13] MEDS ORDERED: Polyethylene Glycol 3350 Powder 17 GM Packet PO PRN (16:20)
[2020-07-13 16:26] LABS: ANION GAP 14.3 mmol/L (5-15)
[2020-07-13] MEDS ORDERED: Warfarin 5 MG Tab PO SCH (16:30)
[2020-07-13] MEDS ORDERED: Acetaminophen 325 MG Tab PO PRN (16:49)
[2020-07-13] MEDS ORDERED: Prochlorperazine 5 MG Tab PO PRN (16:50)
[2020-07-13] MEDS ORDERED: Carboxymethylcellulose Sodium 0.5% Ophth Soln 15 ML Bottle EYEBOTH PRN (19:40)
[2020-07-13] MEDS ORDERED: Warfarin 5 MG Tab PO ONE (20:30)
[2020-07-13] MEDS: Metoprolol Tartrate 25 MG Tab PO SCH (21:08)
[2020-07-13] MEDS: Melatonin 3 MG Tab PO SCH (21:08)
[2020-07-13] MEDS: Magnesium Oxide 500 MG Tab PO SCH (21:09)
[2020-07-13] MEDS: Sodium Chloride 1 GM Tab PO SCH (21:09)
[2020-07-13] MEDS: Simvastatin 20 MG Tab PO SCH (21:09)
[2020-07-13] MEDS: Ferrous Sulfate 325 MG Tab PO SCH (21:09)
[2020-07-13] MEDS: Nystatin Topical Powder 15 GM Bottle TOP SCH (21:19)
[2020-07-14] MEDS: Sodium Chloride 0.65% Nasal Spray 45 ML Bottle NAS PRN (01:57)
[2020-07-14] MEDS: Omeprazole 20 MG Cap.CR PO SCH (06:07)
[2020-07-14] MEDS: Calcium Citrate/Vitamin D3 315 MG-250 Unit Tab PO SCH (08:49)
[2020-07-14] MEDS: Allopurinol 100 MG Tab PO SCH (08:49)
[2020-07-14] MEDS: Multivitamins with Minerals/Iron/Folic Acid/Lycopene Tab PO SCH (08:50)
[2020-07-14] MEDS: Megestrol Susp 40 MG/ML 10 ML UD Cup PO SCH (08:50)
[2020-07-14] MEDS: Nystatin Topical Powder 15 GM Bottle TOP SCH ×2 (08:50→21:11)
[2020-07-14] MEDS: Magnesium Oxide 500 MG Tab PO SCH ×2 (08:50→21:09)
[2020-07-14] MEDS: Sodium Chloride 1 GM Tab PO SCH ×2 (08:50→21:10)
[2020-07-14] MEDS: Ferrous Sulfate 325 MG Tab PO SCH ×2 (08:50→21:09)
[2020-07-14] MEDS: Potassium Chloride 20 MEQ Packet PO SCH (08:51)
[2020-07-14] MEDS ORDERED: metFORMIN 500 MG Tab.ER PO SCH (09:00)
[2020-07-14] MEDS: Metoprolol Tartrate 25 MG Tab PO SCH ×2 (09:03→21:09)
--- NOTE | 2020-07-14 09:08 | PCM.PN ---
- General Info Date of Service: 07/14/20 Functional Status: Reports: Pain Controlled, Tolerating Diet, Urinating. Denies: Ambulating - Review of Systems General: Denies: Fever, Fatigue, Malaise, Chills, Night Sweats HEENT: Reports: No Symptoms Pulmonary: Reports: No Symptoms Cardiovascular: Denies: Palpitations Gastrointestinal: Reports: No Symptoms Genitourinary: Reports: Incontinence Skin: Reports: Bruising Neurological: Reports: Difficulty Walking (non ambulatory), Gait Disturbance. Denies: Confusion Psychiatric: Reports: No Symptoms - Patient Data Vitals - Most Recent: Last Vital Signs Temp 98.3 F 07/14/20 05:57 Pulse 94 07/14/20 05:57 Resp 20 07/14/20 05:57 BP 109/63 07/14/20 05:57 Pulse Ox 96 07/14/20 05:57 Weight - Most Recent: 215 lb I&O - Last 24 Hours: Intake & Output 07/13/20 07/14/20 07/14/20 22:59 06:59 14:59 Intake Total 1065 534 Balance 1065 534 Lab Results Last 24 Hours: Laboratory Results - last 24 hr 07/13/20 07/13/20 07/13/20 Range/Units 13:55 15:50 15:50 WBC 10.59 H (5.00-10.00) 10^3/uL RBC 3.49 L (3.80-5.50) 10^6/uL Hgb 11.1 L D (12.0-16.0) g/dL Hct 33.9 L (37.0-47.0) % MCV 97.1 H D (82.0-92.0) fL MCH 31.8 H (27.0-31.0) pg MCHC 32.7 (32.0-36.0) g/dL RDW 21.4 H (11.5-14.5) % Plt Count 194 D (150-400) 10^3/uL MPV 9.0 (7.4-10.4) fL Immature Gran % (Auto) 2.3 (0.0-5.0) % Neut % (Auto) 73.8 H (50.0-70.0) % Lymph % (Auto) 12.8 L (20.0-40.0) % [place] % (Auto) 10.5 H (2.0-8.0) % Eos % (Auto) 0.3 L (1.0-3.0) % Baso % (Auto) 0.3 (0.0-1.0) % Neut # (Auto) 7.82 H (2.50-7.00) 10^3/uL Lymph # (Auto) 1.36 (1.00-4.00) 10^3/uL [place] # (Auto) 1.11 H (0.10-0.80) 10^3/uL Eos # (Auto) 0.03 L (0.10-0.30) 10^3/uL Baso # (Auto) 0.03 (0.00-0.10) 10^3/uL Immature Gran # (Auto) 0.24 (0.00-0.50) 10^3/uL PT TNP INR 1.6 H (0.9-1.1) Sodium (136-145) mmol/L Potassium (3.5-5.1) mmol/L Chloride (98-107) mmol/L Carbon Dioxide (21.0-32.0) mmol/L Anion Gap (5-15) mmol/L BUN (7-18) mg/dL Creatinine (0.51-1.17) mg/dL Est Cr Clr Drug Dosing mL/min Estimated GFR (MDRD) mL/min Glucose (70-140) mg/dL Calcium (8.7-10.3) mg/dL Total Bilirubin (0.2-1.0) mg/dL AST (15-37) U/L ALT (14-63) U/L Alkaline Phosphatase (46-116) U/L Total Protein (6.4-8.2) g/dL Albumin (3.40-5.00) g/dL SARS CoV-2 RNA Rapid FERNANDO Negative (NEGATIVE) 07/13/20 Range/Units 15:50 WBC (5.00-10.00) 10^3/uL RBC (3.80-5.50) 10^6/uL Hgb (12.0-16.0) g/dL Hct (37.0-47.0) % MCV (82.0-92.0) fL MCH (27.0-31.0) pg MCHC (32.0-36.0) g/dL RDW (11.5-14.5) % Plt Count (150-400) 10^3/uL MPV (7.4-10.4) fL Immature Gran % (Auto) (0.0-5.0) % Neut % (Auto) (50.0-70.0) % Lymph % (Auto) (20.0-40.0) % [place] % (Auto) (2.0-8.0) % Eos % (Auto) (1.0-3.0) % Baso % (Auto) (0.0-1.0) % Neut # (Auto) (2.50-7.00) 10^3/uL Lymph # (Auto) (1.00-4.00) 10^3/uL [place] # (Auto) (0.10-0.80) 10^3/uL Eos # (Auto) (0.10-0.30) 10^3/uL Baso # (Auto) (0.00-0.10) 10^3/uL Immature Gran # (Auto) (0.00-0.50) 10^3/uL PT INR (0.9-1.1) Sodium 125 L (136-145) mmol/L Potassium 3.5 (3.5-5.1) mmol/L Chloride 91 L (98-107) mmol/L Carbon Dioxide 23.2 (21.0-32.0) mmol/L Anion Gap 14.3 (5-15) mmol/L BUN 39 H (7-18) mg/dL Creatinine 0.91 (0.51-1.17) mg/dL Est Cr Clr Drug Dosing 44.71 mL/min Estimated GFR (MDRD) 60 mL/min Glucose 166 H (70-140) mg/dL Calcium 9.7 (8.7-10.3) mg/dL Total Bilirubin 0.3 (0.2-1.0) mg/dL AST 19 (15-37) U/L ALT 31 (14-63) U/L Alkaline Phosphatase 80 (46-116) U/L Total Protein 6.3 L (6.4-8.2) g/dL Albumin 3.11 L (3.40-5.00) g/dL SARS CoV-2 RNA Rapid FERNANDO (NEGATIVE) Med Orders - Current: Current Medications Atropine Sulfate (Atropine) 0.5 mg IVPUSH ONETIME [facility] Last Admin: 07/13/20 16:16 Dose: 0.5 mg Documented by: Fluorouracil (Fluorouracil) 0.876 gm IVPUSH ONETIME [facility] Last Admin: 07/13/20 19:40 Dose: 0.876 gm Documented by: Dexamethasone 12 mg/ Sodium (Chloride) 53 mls @ 159 mls/hr IV ASDIRECTED [facility] Last Admin: 07/13/20 15:22 Dose: 159 mls/hr Documented by: Irinotecan HCl 100 mg/Irinotecan HCl 31.4 mg/Dextrose/Water 506.57 mls @ 337.713 mls/hr IV ONETIME [facility] Last Admin: 07/13/20 16:50 Dose: 337.713 mls/hr Documented by: Leucovorin Calcium 500 mg/Leucovorin Calcium 400 mg/Dextrose/Water 340 mls @ 226.667 mls/hr IV ONETIME [facility] Last Admin: 07/13/20 16:50 Dose: 226.667 mls/hr Documented by: Fluorouracil 2.628 gm/ Sodium (Chloride) 552.56 mls @ 23.1 mls/hr IV ONETIME [facility] Last Admin: 07/13/20 19:48 Dose: 23.1 mls/hr Documented by: Fluorouracil 2.628 gm/ Sodium (Chloride) 552.56 mls @ 23.1 mls/hr IV ONETIME [facility] Sodium Chloride (Normal Saline) 250 mls @ 125 mls/hr IV ASDIRECTED [facility] Last Admin: 07/13/20 15:19 Dose: 125 mls/hr Documented by: Palonosetron (Aloxi) 0.25 mg IVPUSH ONETIME [facility] Last Admin: 07/13/20 15:19 Dose: 0.25 mg Documented by: - Exam Quality Assessment: DVT Prophylaxis (Cross covered with Coumadin). No: Supplemental Oxygen General: Alert, Oriented, Cooperative, No Acute Distress Neck: Supple Lungs: Clear to Auscultation Cardiovascular: Irregular Rhythm. No: Bradycardia, Tachycardia GI/Abdominal Exam: No Distention (Female) Exam: Deferred Peripheral Pulses: 2+: Radial (L), Radial (R) - Patient Data Lab Results Last 24 hrs: Laboratory Results - last 24 hr 07/13/20 07/13/2021 Range/Units 13:55 15:50 15:50 WBC 10.59 H (5.00-10.00) 10^3/uL RBC 3.49 L (3.80-5.50) 10^6/uL Hgb 11.1 L D (12.0-16.0) g/dL Hct 33.9 L (37.0-47.0) % MCV 97.1 H D (82.0-92.0) fL MCH 31.8 H (27.0-31.0) pg MCHC 32.7 (32.0-36.0) g/dL RDW 21.4 H (11.5-14.5) % Plt Count 194 D (150-400) 10^3/uL MPV 9.0 (7.4-10.4) fL Immature Gran % (Auto) 2.3 (0.0-5.0) % Neut % (Auto) 73.8 H (50.0-70.0) % Lymph % (Auto) 12.8 L (20.0-40.0) % [place] % (Auto) 10.5 H (2.0-8.0) % Eos % (Auto) 0.3 L (1.0-3.0) % Baso % (Auto) 0.3 (0.0-1.0) % Neut # (Auto) 7.82 H (2.50-7.00) 10^3/uL Lymph # (Auto) 1.36 (1.00-4.00) 10^3/uL [place] # (Auto) 1.11 H (0.10-0.80) 10^3/uL Eos # (Auto) 0.03 L (0.10-0.30) 10^3/uL Baso # (Auto) 0.03 (0.00-0.10) 10^3/uL Immature Gran # (Auto) 0.24 (0.00-0.50) 10^3/uL PT TNP INR 1.6 H (0.9-1.1) Sodium (136-145) mmol/L Potassium (3.5-5.1) mmol/L Chloride (98-107) mmol/L Carbon Dioxide (21.0-32.0) mmol/L Anion Gap (5-15) mmol/L BUN (7-18) mg/dL Creatinine (0.51-1.17) mg/dL Est Cr Clr Drug Dosing mL/min Estimated GFR (MDRD) mL/min Glucose (70-140) mg/dL Calcium (8.7-10.3) mg/dL Total Bilirubin (0.2-1.0) mg/dL AST (15-37) U/L ALT (14-63) U/L Alkaline Phosphatase (46-116) U/L Total Protein (6.4-8.2) g/dL Albumin (3.40-5.00) g/dL SARS CoV-2 RNA Rapid FERNANDO Negative (NEGATIVE) 07/13/20 Range/Units 15:50 WBC (5.00-10.00) 10^3/uL RBC (3.80-5.50) 10^6/uL Hgb (12.0-16.0) g/dL Hct (37.0-47.0) % MCV (82.0-92.0) fL MCH (27.0-31.0) pg MCHC (32.0-36.0) g/dL RDW (11.5-14.5) % Plt Count (150-400) 10^3/uL MPV (7.4-10.4) fL Immature Gran % (Auto) (0.0-5.0) % Neut % (Auto) (50.0-70.0) % Lymph % (Auto) (20.0-40.0) % [place] % (Auto) (2.0-8.0) % Eos % (Auto) (1.0-3.0) % Baso % (Auto) (0.0-1.0) % Neut # (Auto) (2.50-7.00) 10^3/uL Lymph # (Auto) (1.00-4.00) 10^3/uL [place] # (Auto) (0.10-0.80) 10^3/uL Eos # (Auto) (0.10-0.30) 10^3/uL Baso # (Auto) (0.00-0.10) 10^3/uL Immature Gran # (Auto) (0.00-0.50) 10^3/uL PT INR (0.9-1.1) Sodium 125 L (136-145) mmol/L Potassium 3.5 (3.5-5.1) mmol/L Chloride 91 L (98-107) mmol/L Carbon Dioxide 23.2 (21.0-32.0) mmol/L Anion Gap 14.3 (5-15) mmol/L BUN 39 H (7-18) mg/dL Creatinine 0.91 (0.51-1.17) mg/dL Est Cr Clr Drug Dosing 44.71 mL/min Estimated GFR (MDRD) 60 mL/min Glucose 166 H (70-140) mg/dL Calcium 9.7 (8.7-10.3) mg/dL Total Bilirubin 0.3 (0.2-1.0) mg/dL AST 19 (15-37) U/L ALT 31 (14-63) U/L Alkaline Phosphatase 80 (46-116) U/L Total Protein 6.3 L (6.4-8.2) g/dL Albumin 3.11 L (3.40-5.00) g/dL SARS CoV-2 RNA Rapid FERNANDO (NEGATIVE) Result Diagrams: 07/13/20 15:50 07/13/20 15:50 Sepsis Event Note - Evaluation Sepsis Screening Result: No Definite Risk - Focused Exam Vital Signs: Vital Signs Temp Pulse Pulse Resp BP BP Pulse Ox 07/14/20 05:57 98.3 F 94 20 109/63 96 07/13/20 22:56 98.2 F 112 H 16 123/50 L 96 07/13/20 21:08 118 H 126/63 - Problem List Review Problem List Initiated/Reviewed/Updated: Yes - My Orders Last 24 Hours: My Active Orders 07/13/20 13:15 Patient Status [ADT] Routine 07/13/20 15:00 Sodium Chloride 0.9% [Normal Saline] 20 ml FLUSH ASDIRECTED 07/13/20 15:31 Up to Chair [RC] DAILY VTE/DVT Education [RC] DAILY Resuscitation Status Routine 07/13/20 15:33 Intake and Output [RC] 06,14,22 07/13/20 15:40 Consult to Oncology Nurse [CONS] Routine 07/13/20 16:20 Docusate Sodium/Sennosides [Senna Plus] 1 tab PO DAILY PRN Ondansetron [Zofran ODT] 8 mg PO Q8HR PRN polyethylene glycoL 3350 [MiraLAX] 17 gm PO DAILY PRN 07/13/20 16:30 Warfarin 3.75 mg PO ASDIRECTED Warfarin [Coumadin] 2.5 mg PO ASDIRECTED Warfarin [Coumadin] 5 mg PO ASDIRECTED 07/13/20 16:49 Acetaminophen [TylenoL] 650 mg PO Q4H PRN 07/13/20 16:50 Prochlorperazine [Compazine] 10 mg PO Q6HR PRN 07/13/20 Dinner [employer] Diet [DIET] 07/13/20 19:40 Carboxymethylcellulose Sodium [Refresh Tears 0.5%] 0 ml EYEBOTH Q2H PRN 07/13/20 19:41 Loperamide [Imodium] 2 - 4 mg PO Q2H PRN 07/13/20 21:00 Docusate Sodium/Sennosides [Senna Plus] 1 tab PO BEDTIME Ferrous Sulfate 325 mg PO BID Magnesium Oxide 500 mg PO BID Melatonin 3 mg PO BEDTIME Metoprolol Tartrate [Lopressor] 25 mg PO BID Nystatin [Nystop] 0 gm TOP BID Simvastatin [Zocor] 40 mg PO BEDTIME Sodium Chloride 1 gm PO BID 07/13/20 23:00 Vital Signs [RC] 07,15,23 07/14/20 07:00 Omeprazole 20 mg PO ACBRK 07/14/20 09:00 Calcium Citrate/Vitamin D3 [Calcium Citrate + D] 1 tab PO QAM FA/Lycopene/Lut/MV,Ca,Iron,Min [Centrum] 1 tab PO DAILY Megestrol [Megace 40 MG/ML Susp] 400 mg PO QAM Potassium Chloride [Klor-Con] 20 meq PO QAM allopurinoL [Zyloprim] 200 mg PO QAM metFORMIN [Glucophage XR] 500 mg PO QAM 07/15/20 09:00 metOLazone [Zaroxolyn] 1.25 mg PO TuThSa@0900 - Plan Plan:: History Summary: Ms Rutherford is a 79-year-old of a local [facility] who was admitted into inpatient on 07/13 to receive chemotherapy. Patient is currently under the care of an oncologist Dr. 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 Hospital course 07/14/2020; [facility] staff chemotherapy nurse stayed overnight with patient, was in communication with chemo nurse throughout the late evening with no reported complications of ongoing chemotherapy. No acute complaints. Denies N/V. No stomatitis Primary hospital problems --Admission for antineoplastic chemotherapy --Liver metastasis, dx 04/06/20; --Colon cancer --Hyponatremia, chronic, stable, Continue sodium replacement, Chronic problems --Atrial fib, chronic, CHA2 DS2 VASc 5, rate controlled with metoprol, warfarin/anticoagulation, pharmacy to manage INR/dosage --Essential hypertension, Metoprolol --Type 2 diabetes mellitus, A1c <6%, HOLD low dose metformin given chemo/GI side effects, adequate GFR --Chronic kidney disease, stage 3, GFR 60 --Chronic atrial fibrillation, with current use of intermediate manager anticoagulation --Vitamin B12 deficiency Disposition/overall plan --Continue with inpatient status for antineoplastic chemotherapy and sequela i.e. neutropenia, worsening electrolyte disturbances, fever, chemo-induced a norexia/emesis, rashes
[2020-07-14] MEDS ORDERED: SODIUM CHLORIDE 0.9% IV SCH ×2 (15:30→21:20)
[2020-07-14] MEDS ORDERED: FLUOROURACIL IV SCH ×2 (15:30→21:20)
[2020-07-14] MEDS ORDERED: Warfarin 2.5 MG Tab PO ONE (18:00)
[2020-07-14] MEDS: Melatonin 3 MG Tab PO SCH (21:09)
[2020-07-14] MEDS: Simvastatin 20 MG Tab PO SCH (21:10)
[2020-07-15] MEDS: Sodium Chloride 0.65% Nasal Spray 45 ML Bottle NAS PRN ×2 (01:12→20:41)
[2020-07-15] MEDS: Omeprazole 20 MG Cap.CR PO SCH (06:18)
[2020-07-15] MEDS: Magnesium Oxide 500 MG Tab PO SCH ×2 (08:31→20:41)
[2020-07-15] MEDS: Megestrol Susp 40 MG/ML 10 ML UD Cup PO SCH (08:31)
[2020-07-15] MEDS: Multivitamins with Minerals/Iron/Folic Acid/Lycopene Tab PO SCH (08:31)
[2020-07-15] MEDS: Potassium Chloride 20 MEQ Packet PO SCH (08:31)
[2020-07-15] MEDS: Sodium Chloride 1 GM Tab PO SCH ×2 (08:31→20:45)
[2020-07-15] MEDS: Nystatin Topical Powder 15 GM Bottle TOP SCH ×2 (08:32→20:45)
[2020-07-15] MEDS: Ferrous Sulfate 325 MG Tab PO SCH ×2 (08:32→20:42)
[2020-07-15] MEDS: Allopurinol 100 MG Tab PO SCH (08:32)
[2020-07-15] MEDS: Calcium Citrate/Vitamin D3 315 MG-250 Unit Tab PO SCH (08:32)
[2020-07-15] MEDS: Metoprolol Tartrate 25 MG Tab PO SCH ×2 (08:32→20:41)
[2020-07-15] MEDS ORDERED: Metolazone 2.5 MG Tab PO SCH (09:00)
[2020-07-15] MEDS: Loperamide 2 MG Cap PO PRN ×2 (16:27→22:07)
[2020-07-15] MEDS ORDERED: Warfarin 2.5 MG Tab PO SCH (18:00)
[2020-07-15] MEDS: Melatonin 3 MG Tab PO SCH (20:42)
[2020-07-15] MEDS: Simvastatin 20 MG Tab PO SCH (20:42)
[2020-07-15] MEDS: Sodium Chloride 0.9% 20 ML SDV FLUSH SCH (22:00)
[2020-07-15 22:52] VITALS: PULSE 98
[2020-07-16] MEDS: Sodium Chloride 0.65% Nasal Spray 45 ML Bottle NAS PRN (06:10)
[2020-07-16] MEDS: Omeprazole 20 MG Cap.CR PO SCH (06:10)
[2020-07-16] MEDS: Sodium Chloride 1 GM Tab PO SCH (08:01)
[2020-07-16] MEDS: Multivitamins with Minerals/Iron/Folic Acid/Lycopene Tab PO SCH (08:01)
[2020-07-16] MEDS: Metoprolol Tartrate 25 MG Tab PO SCH (08:01)
[2020-07-16] MEDS: Magnesium Oxide 500 MG Tab PO SCH (08:01)
[2020-07-16] MEDS: Allopurinol 100 MG Tab PO SCH (08:01)
[2020-07-16] MEDS: Ferrous Sulfate 325 MG Tab PO SCH (08:01)
[2020-07-16] MEDS: Potassium Chloride 20 MEQ Packet PO SCH (08:02)
[2020-07-16] MEDS: Calcium Citrate/Vitamin D3 315 MG-250 Unit Tab PO SCH (08:04)
[2020-07-16] MEDS: Nystatin Topical Powder 15 GM Bottle TOP SCH (08:04)
[2020-07-16] MEDS: Megestrol Susp 40 MG/ML 10 ML UD Cup PO SCH (08:04)
[2020-07-16 08:05] VITALS: BP 152/51
--- NOTE | 2020-07-16 08:58 | PCM.DCSUM1 ---
Discharge Summary - Hospital Course Diagnosis: Stroke: No - Discharge Data Discharge Date: 07/16/20 Discharge Disposition: DC/Tfer to SNF 03 Condition: Fair - Referral to Home Health Primary Care Physician: James Rizvi NP - Patient Summary/Data Consults: Consultations 07/13/20 15:40 Consult to Oncology Nurse [CONS] Routine - Patient Instructions Diet: Diabetic Diet Activity: Apply Ice Driving: Do Not Drive Showering/Bathing: May Shower Notify Provider of: Fever, Nausea and/or Vomiting Other/Special Instructions: --Report any new rashes, mouth ulcers, fever, loss of appetite, vomiting. --BMP, CBC with differential, July 19. --Return to [facility] Sunday for injection, call hospital for time - Discharge Plan *PRESCRIPTION DRUG MONITORING PROGRAM REVIEWED*: Not Applicable *COPY OF PRESCRIPTION DRUG MONITORING REPORT IN PATIENT ALBA: Not Applicable Home Medications: Home Meds Omeprazole 20 mg PO QAM 01/02/17 [History] Simvastatin [Zocor] 40 mg PO BEDTIME 01/02/17 [History] metOLazone [Metolazone] 1.25 mg PO ASDIRECTED 01/02/17 [History] Calcium Carbonate/Vitamin D3 [Calcium 600-Vit D3 500 Softgel] 1 tab PO QAM 03/08/18 [History] Cyanocobalamin (Vitamin B-12) [B-12] 1,000 mcg PO QAM 03/08/18 [History] allopurinoL [Zyloprim] 200 mg PO QAM 03/08/18 [History] metFORMIN [Glucophage XR] 500 mg PO QAM 02/14/20 [History] Ferrous Sulfate [Ferosul] 325 mg PO BID 03/29/20 [History] Acetaminophen [Tylenol] 650 mg PO Q4H PRN 06/02/20 [History] Carboxymethylcellulose Sodium [Artificial Tears] 1.4 ml OP Q2HR PRN 06/02/20 [History] Magnesium Chloride [Slow-Mag] 1 tab PO BID 06/02/20 [History] Metoprolol Tartrate 25 mg PO BID 06/02/20 [History] Ondansetron [Zofran ODT] 8 mg PO Q8HR PRN 06/02/20 [History] Prochlorperazine Maleate [Compazine] 10 mg PO Q6HR PRN 06/02/20 [History] Ascorbic Acid [Vitamin C] 125 mg PO QAM 07/13/20 [History] Bumetanide 2 mg PO QAM 07/13/20 [History] Loperamide HCl [Imodium A-D] 2 mg PO ASDIRECTED 07/13/20 [History] Megestrol [Megace 40 MG/ML Susp] 10 ml PO QAM 07/13/20 [History] Melatonin 3 mg PO BEDTIME 07/13/20 [History] Multivitamin 1 each PO QAM 07/13/20 [History] Nystatin 1 gm TP BID 07/13/20 [History] Potassium Chloride [Klor-Con] 20 meq PO QAM 07/13/20 [History] Sennosides/Docusate Sodium [Senna Plus 8.6-50 mg Tablet] 1 tab PO DAILY PRN 07/13/20 [History] Sennosides/Docusate Sodium [Senna-S 8.6-50 mg Tablet] 1 tab PO BEDTIME 07/13/20 [History] Sodium Chloride 1 gm PO BID 07/13/20 [History] Warfarin [Coumadin] 2.5 mg PO ASDIRECTED 07/13/20 [History] Warfarin [Coumadin] 3.75 mg PO ASDIRECTED 07/13/20 [History] bisacodyL [Dulcolax] 10 mg RC DAILY PRN 07/13/20 [History] polyethylene glycoL 3350 [MiraLAX] 17 gm PO DAILY PRN 07/13/20 [History] - Discharge Summary/Plan Comment DC Time >30 min.: Yes Discharge Summary/Plan Comment: Final diagnosis --Admission for antineoplastic chemotherapy, not able to administer in LTC --Liver metastasis, --Colon cancer --Hyponatremia, chronic History Summary: Ms Rutherford is a 79-year-old of a local LTC who was admitted into inpatient on 07/13 to receive chemotherapy. Patient is currently under the care of an oncologist Dr. 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 Hospital course Was important that the patient be admitted into inpatient status for chemotherapy as this was not possible in a long-term care setting due to lack of chemotherapy nurses. While giving chemotherapy it was important that the patient be followed closely for any chemotherapy related chemotherapy sequela i.e. neutropenia, worsening electrolyte disturbances, fever, chemo-induced anorexia/emesis, rashes, stomatitis. On the first night of admission [facility] staff chemotherapy nurse stayed overnight with patient, was in communication with chemo nurse throughout the late evening with no reported complications of ongoing chemotherapy. No acute complaints. Denies N/V. No stomatitis the patient did bite her the side of her cheek the morning of discharge. However she did have 2 episodes of diarrhea the night before discharge. Vital signs were good no fever, no infection concerns around her port. She did have low sodium which is chronic for her she remained on sodium replacement therapy. Her INR was subtherapeutic on admission however was improving upon discharge. Pharmacy was managing her INR. Medication changes/adjustments upon discharge None, continue all home medications. Disposition --Patient will be discharge from inpatient status back to LT. --CBC, CMP, LDH July 19 - General Info Date of Service: 07/16/20 Functional Status: Reports: Pain Controlled, Tolerating Diet, New Symptoms (2 episodes diarrhea) - Review of Systems General: Reports: No Symptoms HEENT: Reports: No Symptoms Pulmonary: Reports: No Symptoms Cardiovascular: Reports: Edema. Denies: Chest Pain, Palpitations, Dyspnea on Exertion Gastrointestinal: Reports: Diarrhea. Denies: Nausea, Vomiting Genitourinary: Reports: Incontinence Skin: Reports: Bruising Neurological: Reports: Confusion Psychiatric: Reports: Confusion - Patient Data Vitals - Most Recent: Last Vital Signs Temp 97.9 F 07/16/20 08:48 Pulse 98 07/16/20 08:48 Resp 18 07/16/20 08:48 BP 152/51 H 07/16/20 08:48 Pulse Ox 98 07/16/20 08:48 Weight - Most Recent: 215 lb I&O - Last 24 hours: Intake & Output 07/15/20 07/16/20 07/16/20 22:59 06:59 14:59 Intake Total 698 500 Balance 698 500 Med Orders - Current: Current Medications Acetaminophen (Acetaminophen 325 Mg Tab) 650 mg PO Q4H PRN PRN Reason: Pain Last Admin: 07/15/20 01:13 Dose: 650 mg Documented by: Allopurinol (Allopurinol 100 Mg Tab) 200 mg PO QAM [facility] Last Admin: 07/16/20 08:01 Dose: 200 mg Documented by: Artificial Tears (Carboxymethylcellulose Sodium 0.5% Ophth Soln 15 Ml Bottle) 0 ml EYEBOTH Q2H PRN PRN Reason: Dry Eyes Atropine Sulfate (Atropine) 0.5 mg IVPUSH ONETIME [facility] Last Admin: 07/13/20 16:16 Dose: 0.5 mg Documented by: Calcium Citrate (Calcium Citrate/Vitamin D3 315 Mg-250 Unit Tab) 1 tab PO QAM [facility] Last Admin: 07/16/20 08:04 Dose: 1 tab Documented by: Ferrous Sulfate (Ferrous Sulfate 325 Mg Tab) 325 mg PO BID [facility] Last Admin: 07/16/20 08:01 Dose: 325 mg Documented by: Fluorouracil (Fluorouracil) 0.876 gm IVPUSH ONETIME [facility] Last Admin: 07/13/20 19:40 Dose: 0.876 gm Documented by: Dexamethasone 12 mg/ Sodium (Chloride) 53 mls @ 159 mls/hr IV ASDIRECTED [facility] Last Admin: 07/13/20 15:22 Dose: 159 mls/hr Documented by: Irinotecan HCl 100 mg/Irinotecan HCl 31.4 mg/Dextrose/Water 506.57 mls @ 337.713 mls/hr IV ONETIME [facility] Last Admin: 07/13/20 16:50 Dose: 337.713 mls/hr Documented by: Leucovorin Calcium 500 mg/Leucovorin Calcium 400 mg/Dextrose/Water 340 mls @ 226.667 mls/hr IV ONETIME [facility] Last Admin: 07/13/20 16:50 Dose: 226.667 mls/hr Documented by: Fluorouracil 2.628 gm/ Sodium (Chloride) 552.56 mls @ 23.1 mls/hr IV ONETIME [facility] Last Admin: 07/13/20 19:48 Dose: 23.1 mls/hr Documented by: Fluorouracil 2.628 gm/ Sodium (Chloride) 552.56 mls @ 23.1 mls/hr IV ONETIME KIT Sodium Chloride (Normal Saline) 250 mls @ 125 mls/hr IV ASDIRECTED [facility] Last Admin: 07/13/20 15:19 Dose: 125 mls/hr Documented by: Loperamide HCl (Loperamide 2 Mg Cap) 2 - 4 mg PO Q2H PRN PRN Reason: DIARRHEA Last Admin: 07/15/20 22:07 Dose: 2 mg Documented by: Magnesium Oxide (Magnesium Oxide 500 Mg Tab) 500 mg PO BID [facility] Last Admin: 07/16/20 08:01 Dose: 500 mg Documented by: Megestrol Acetate (Megestrol Susp 40 Mg/Ml 10 Ml Ud Cup) [facility] Last Admin: 07/16/20 08:04 Dose: 400 mg Documented by: Melatonin (Melatonin 3 Mg Tab) 3 mg PO BEDTIME [facility] Last Admin: 07/15/20 20:42 Dose: 3 mg Documented by: Metformin HCl (Metformin 500 Mg Tab.Er) [address] [facility] Last Admin: 07/14/20 08:50 Dose: 500 mg Documented by: Metolazone (Metolazone 2.5 Mg Tab) 1.25 mg PO TuThSa@0900 [facility] Last Admin: 07/15/20 08:31 Dose: 1.25 mg Documented by: Metoprolol Tartrate (Metoprolol Tartrate 25 Mg Tab) 25 mg PO BID [facility] Last Admin: 07/16/20 08:01 Dose: 25 mg Documented by: Multivitamins/Minerals (Multivitamins With Minerals/Iron/Folic Acid/Lycopene Tab) 1 tab PO DAILY [facility] Last Admin: 07/16/20 08:01 Dose: 1 tab Documented by: Non-Formulary Medication (Warfarin) 3.75 mg PO ASDIRECTED [facility] Nystatin (Nystatin Topical Powder 15 Gm Bottle) 0 gm TOP BID [facility] Last Admin: 07/16/20 08:04 Dose: 1 applic Documented by: Omeprazole (Omeprazole 20 Mg Cap.Cr) 20 mg PO ACBRK [facility] Last Admin: 07/16/20 06:10 Dose: 20 mg Documented by: Ondansetron HCl (Ondansetron 4 Mg Tab.Dis) 8 mg PO Q8HR PRN PRN Reason: Nausea Palonosetron (Aloxi) 0.25 mg IVPUSH ONETIME [facility] Last Admin: 07/13/20 15:19 Dose: 0.25 mg Documented by: Polyethylene Glycol (Polyethylene Glycol 3350 Powder 17 Gm Packet) 17 gm PO DAILY PRN PRN Reason: Constipation Potassium Chloride (Potassium Chloride 20 Meq Packet) 20 [facility]q [facility] Last Admin: 07/16/20 08:02 Dose: 20 meq Documented by: Prochlorperazine Maleate (Prochlorperazine 5 Mg Tab) 10 mg PO Q6HR PRN PRN Reason: Nausea Senna/Docusate Sodium (Docusate Sodium/Sennosides 50-8.6 Mg Tab) 1 tab PO DAILY PRN PRN Reason: Constipation Last Admin: 07/14/20 15:12 Dose: 1 tab Documented by: Senna/Docusate Sodium (Docusate Sodium/Sennosides 50-8.6 Mg Tab) 1 tab PO BEDTIME [facility] Last Admin: 07/15/20 20:45 Dose: Not Given Documented by: Simvastatin (Simvastatin 20 Mg Tab) 40 mg PO BEDTIME [facility] Last Admin: 07/15/20 20:42 Dose: 40 mg Documented by: Sodium Chloride (Sodium Chloride 0.9% 20 Ml Sdv) 20 ml FLUSH ASDIRECTED [facility] Last Admin: 07/15/20 22:00 Dose: 20 ml Documented by: Sodium Chloride (Sodium Chloride 1 Gm Tab) 1 gm PO BID [facility] Last Admin: 07/16/20 08:01 Dose: 1 gm Documented by: Warfarin Sodium (Warfarin 2.5 Mg Tab) 2.5 mg PO ASDIRECTED [facility] Last Admin: 07/15/20 18:05 Dose: 2.5 mg Documented by: Warfarin Sodium (Warfarin 5 Mg Tab) 5 mg PO ASDIRECTED [facility] Discontinued Medications Warfarin Sodium (Warfarin 5 Mg Tab) 5 mg PO ONETIME ONE Stop: 07/13/20 20:31 Last Admin: 07/13/20 21:09 Dose: 5 mg Documented by: - Exam Quality Assessment: Denies: Supplemental Oxygen General: Reports: Alert, Oriented, Cooperative, No Acute Distress Lungs: Reports: Clear to Auscultation, Normal Respiratory Effort Cardiovascular: Reports: Irregular Rhythm. Denies: Bradycardia, Tachycardia (Female) Exam: Deferred Extremities: Pedal Edema (Much of her edema is disuse) Neurological: Reports: Normal Speech, Normal Tone
[2020-07-16] MEDS ORDERED: Warfarin 2.5 MG Tab PO SCH (18:00)
--- NOTE | 2020-07-23 10:11 | PCM.PN ---
- General Info Date of Service: 07/15/20 Functional Status: Reports: Tolerating Diet, Incentive Spirometry. Denies: Ambulating - Review of Systems General: Denies: Fever, Weakness, Fatigue HEENT: Reports: No Symptoms Pulmonary: Denies: Shortness of Breath, Sputum Cardiovascular: Reports: Edema. Denies: Chest Pain Gastrointestinal: Denies: Constipation, Decreased Appetite, Diarrhea, Nausea Skin: Reports: Other ("mey cheeks") Neurological: Reports: Pre-Existing Deficit, Difficulty Walking (wheelchair bound) Psychiatric: Reports: No Symptoms - Patient Data Vitals - Most Recent: Last Vital Signs Temp 97.9 F 07/16/20 08:48 Pulse 98 07/16/20 08:48 Resp 18 07/16/20 08:48 BP 152/51 H 07/16/20 08:48 Pulse Ox 98 07/16/20 08:48 Weight - Most Recent: 188 lb 4.8 oz Med Orders - Current: Current Medications Discontinued Medications Acetaminophen (Acetaminophen 325 Mg Tab) 650 mg PO Q4H PRN PRN Reason: Pain Last Admin: 07/15/20 01:13 Dose: 650 mg Documented by: Allopurinol (Allopurinol 100 Mg Tab) 200 mg PO QAM [facility] Last Admin: 07/16/20 08:01 Dose: 200 mg Documented by: Artificial Tears (Carboxymethylcellulose Sodium 0.5% Ophth Soln 15 Ml Bottle) 0 ml EYEBOTH Q2H PRN PRN Reason: Dry Eyes Atropine Sulfate (Atropine 0.4 Mg/Ml Sdv) 0.5 mg IVPUSH ONETIME [facility] Last Admin: 07/13/20 16:16 Dose: 0.5 mg Documented by: Calcium Citrate (Calcium Citrate/Vitamin D3 315 Mg-250 Unit Tab) 1 tab PO QAM [facility] Last Admin: 07/16/20 08:04 Dose: 1 tab Documented by: Ferrous Sulfate (Ferrous Sulfate 325 Mg Tab) 325 mg PO BID [facility] Last Admin: 07/16/20 08:01 Dose: 325 mg Documented by: Fluorouracil (Fluorouracil 2.5 Gm/50 Ml Sdv) 0.876 gm IVPUSH ONETIME [facility] Last Admin: 07/13/20 19:40 Dose: 0.876 gm Documented by: Heparin Sodium (Porcine) (Heparin Sodium 100 Units/Ml 5 Ml Syringe) 500 units FLUSH ONETIME ONE Stop: 07/15/20 19:01 Last Admin: 07/15/20 22:00 Dose: 500 units Documented by: Dexamethasone 12 mg/ Sodium (Chloride) 53 mls @ 159 mls/hr IV ASDIRECTED [facility] Last Admin: 07/13/20 15:22 Dose: 159 mls/hr Documented by: Irinotecan HCl 100 mg/Irinotecan HCl 31.4 mg/Dextrose/Water 506.57 mls @ 337.713 mls/hr IV ONETIME [facility] Last Admin: 07/13/20 16:50 Dose: 337.713 mls/hr Documented by: Leucovorin Calcium 500 mg/Leucovorin Calcium 400 mg/Dextrose/Water 340 mls @ 226.667 mls/hr IV ONETIME [facility] Last Admin: 07/13/20 16:50 Dose: 226.667 mls/hr Documented by: Fluorouracil 2.628 gm/ Sodium (Chloride) 552.56 mls @ 23.1 mls/hr IV ONETIME [facility] Last Admin: 07/13/20 19:48 Dose: 23.1 mls/hr Documented by: Fluorouracil 2.628 gm/ Sodium (Chloride) 552.56 mls @ 23.1 mls/hr IV ONETIME KIT Sodium Chloride (Normal Saline) 250 mls @ 125 mls/hr IV ASDIRECTED [facility] Last Admin: 07/13/20 15:19 Dose: 125 mls/hr Documented by: Fluorouracil 2.628 gm/ Sodium (Chloride) 552.56 mls @ 23.1 mls/hr IV ONETIME [facility] Last Admin: 07/14/20 21:20 Dose: 23.1 mls/hr Documented by: Loperamide HCl (Loperamide 2 Mg Cap) 2 - 4 mg PO Q2H PRN PRN Reason: DIARRHEA Last Admin: 07/15/20 22:07 Dose: 2 mg Documented by: Magnesium Oxide (Magnesium Oxide 500 Mg Tab) 500 mg PO BID [facility] Last Admin: 07/16/20 08:01 Dose: 500 mg Documented by: Megestrol Acetate (Megestrol Susp 40 Mg/Ml 10 Ml Ud Cup) 400 mg PO QAM [facility] Last Admin: 07/16/20 08:04 Dose: 400 mg Documented by: Melatonin (Melatonin 3 Mg Tab) 3 mg PO BEDTIME [facility] Last Admin: 07/15/20 20:42 Dose: 3 mg Documented by: Metformin HCl (Metformin 500 Mg Tab.Er) [facility] Last Admin: 07/14/20 08:50 Dose: 500 mg Documented by: Metolazone (Metolazone 2.5 Mg Tab) 1.25 mg PO TuThSa@0900 [facility] Last Admin: 07/15/20 08:31 Dose: 1.25 mg Documented by: Metoprolol Tartrate (Metoprolol Tartrate 25 Mg Tab) 25 mg PO BID [facility] Last Admin: 07/16/20 08:01 Dose: 25 mg Documented by: Multivitamins/Minerals (Multivitamins With Minerals/Iron/Folic Acid/Lycopene Tab) 1 tab PO DAILY [facility] Last Admin: 07/16/20 08:01 Dose: 1 tab Documented by: Nystatin (Nystatin Topical Powder 15 Gm Bottle) 0 gm TOP BID [facility] Last Admin: 07/16/20 08:04 Dose: 1 applic Documented by: Omeprazole (Omeprazole 20 Mg Cap.Cr) 20 mg PO ACBRK [facility] Last Admin: 07/16/20 06:10 Dose: 20 mg Documented by: Ondansetron HCl (Ondansetron 4 Mg Tab.Dis) 8 mg PO Q8HR PRN PRN Reason: Nausea Palonosetron (Palonosetron 0.25 Mg/5 Ml Sdv) 0.25 mg IVPUSH ONETIME [facility] Last Admin: 07/13/20 15:19 Dose: 0.25 mg Documented by: Polyethylene Glycol (Polyethylene Glycol 3350 Powder 17 Gm Packet) 17 gm PO DAILY PRN PRN Reason: Constipation Potassium Chloride (Potassium Chloride 20 Meq Packet) 20 meq PO [facility] Last Admin: 07/16/20 08:02 Dose: 20 meq Documented by: Prochlorperazine Maleate (Prochlorperazine 5 Mg Tab) 10 mg PO Q6HR PRN PRN Reason: Nausea Senna/Docusate Sodium (Docusate Sodium/Sennosides 50-8.6 Mg Tab) 1 tab PO DAILY PRN PRN Reason: Constipation Last Admin: 07/14/20 15:12 Dose: 1 tab Documented by: Senna/Docusate Sodium (Docusate Sodium/Sennosides 50-8.6 Mg Tab) 1 tab PO BED TIME [facility] Last Admin: 07/15/20 20:45 Dose: Not Given Documented by: Simvastatin (Simvastatin 20 Mg Tab) 40 mg PO BEDTIME [facility] Last Admin: 07/15/20 20:42 Dose: 40 mg Documented by: Sodium Chloride (Sodium Chloride 0.9% 20 Ml Sdv) 20 ml FLUSH ASDIRECTED [facility] Last Admin: 07/15/20 22:00 Dose: 20 ml Documented by: Sodium Chloride (Sodium Chloride 1 Gm Tab) 1 gm PO BID [facility] Last Admin: 07/16/20 08:01 Dose: 1 gm Documented by: Sodium Chloride (Sodium Chloride 0.65% Nasal [place] 45 Ml Bottle) 0 ml AMBER Q2H PRN PRN Reason: Congestion Last Admin: 07/16/20 06:10 Dose: 1 spray Documented by: Warfarin Sodium (Warfarin 2.5 Mg Tab) 2.5 mg PO SuThSa@1800 [facility] Last Admin: 07/15/20 18:05 Dose: 2.5 mg Documented by: Warfarin Sodium (Warfarin 2.5 Mg Tab) 3.75 mg PO MoFr@1800 [facility] Warfarin Sodium (Warfarin 5 Mg Tab) 5 mg PO ASDIRECTED [facility] Warfarin Sodium (Warfarin 5 Mg Tab) 5 mg PO ONETIME ONE Stop: 07/13/20 20:31 Last Admin: 07/13/20 21:09 Dose: 5 mg Documented by: Warfarin Sodium (Warfarin 2.5 Mg Tab) 2.5 mg PO ONETIME ONE Stop: 07/14/20 18:01 Last Admin: 07/14/20 17:56 Dose: 2.5 mg Documented by: - Exam Quality Assessment: No: Supplemental Oxygen General: Alert, Oriented, Cooperative, No Acute Distress Neck: Supple Lungs: Clear to Auscultation, Normal Respiratory Effort Cardiovascular: Regular Rate, Irregular Rhythm GI/Abdominal Exam: Normal Bowel Sounds, Soft (Female) Exam: Deferred Extremities: Pedal Edema Peripheral Pulses: 2+: Radial (L), Radial (R) Skin: Other (slight flushed face) Psy/Mental Status: Alert, Normal Affect, Normal Mood - Patient Data Result Diagrams: 07/13/20 15:50 07/13/20 15:50 Sepsis Event Note - Evaluation Sepsis Screening Result: No Definite Risk - Problem List Review Problem List Initiated/Reviewed/Updated: Yes - Plan Plan:: History Summary: Ms Rutherford is a 79-year-old of a local LTC who was admitted into inpatient on 07/13 to receive chemotherapy. Patient is currently under the care of an oncologist Dr. 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 Hospital course 07/14/2020; [facility] staff chemotherapy nurse stayed overnight with zaria cid, was in communication with chemo nurse throughout the late evening with no reported complications of ongoing chemotherapy. No acute complaints. Denies N/V. No stomatitis 07/15/2020; doing well, slightly flushed cheeks today, port site looks good, we are withholding all blood draws from port site. No nausea, no vomiting or diarrhea. Vital signs stable tolerating chemotherapy well. Primary hospital problems --Admission for antineoplastic chemotherapy --Liver metastasis, dx 04/06/20; --Colon cancer --Hyponatremia, chronic, stable, Continue sodium replacement, Chronic problems --Atrial fib, chronic, CHA2 DS2 VASc 5, rate controlled with metoprol, warfarin/anticoagulation, pharmacy to manage INR/dosage --Essential hypertension, Metoprolol --Type 2 diabetes mellitus, A1c <6%, HOLD low dose metformin given chemo/GI side effects, adequate GFR --Chronic kidney disease, stage 3, GFR 60 --Chronic atrial fibrillation, with current use of filler leaf cutter long anticoagulation --Vitamin B12 deficiency Disposition/overall plan --Continue with inpatient status for antineoplastic chemotherapy and sequela i.e. neutropenia, worsening electrolyte disturbances, fever, chemo-induced anorexia/emesis, rashes
== END 2020-07-16 08:50 | DRG 847 ==
LOC: KA.MS 13:50
PROVIDERS: ADMIT Nurse Practitioner Family; ATTEND Nurse Practitioner Family
DX: Z51.11 Encounter for antineoplastic chemotherapy (principal); C18.9 Malignant neoplasm of colon, unspecified; C78.7 Secondary malignant neoplasm of liver and intrahepatic bile duct; C79.89 Secondary malignant neoplasm of other specified sites; I48.20 Chronic atrial fibrillation, unspecified; E87.1 Hypo-osmolality and hyponatremia; E11.22 Type 2 diabetes mellitus with diabetic chronic kidney disease; I12.9 Hypertensive chronic kidney disease with stage 1 through stage 4 chronic kidney disease, or unspecified chronic kidney disease; D70.2 Other drug-induced agranulocytosis; T45.1X5A Adverse effect of antineoplastic and immunosuppressive drugs, initial encounter; N18.30 Chronic kidney disease, stage 3 unspecified; E53.8 Deficiency of other specified B group vitamins; E87.6 Hypokalemia; E83.42 Hypomagnesemia; Z79.899 Other long term (current) drug therapy; Z79.01 Long term (current) use of anticoagulants; Z79.84 Long term (current) use of oral hypoglycemic drugs; Z90.710 Acquired absence of both cervix and uterus; Z87.891 Personal history of nicotine dependence; Z20.822 Contact with and (suspected) exposure to COVID-19
CPT/HCPCS: 36415; 36416; 80053; 85025; 85610; A9270-GY; J0461; J0640; J1100; J1642; J2469; J7040; J7050; J7060; J9190; J9206; U0002

== ENCOUNTER 2020-07-26 16:21 | Inpatient (IN) | payer MEDICARE, OTHER ==
--- NOTE | 2020-07-26 17:05 | EDM.PDOC ---
ED HPI GENERAL MEDICAL PROBLEM - General Stated Complaint: weakness Time Seen by Provider: 07/26/20 16:23 Source of Information: Reports: Patient, [facility] Records History Limitations: Reports: No Limitations - History of Present Illness INITIAL COMMENTS - FREE TEXT/NARRATIVE: Patient presents with general weakness. 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 She hasn't been eating or drinking much. She gets UTI's sometimes but usually has dysuria with that and hasn't recently. She gets weak after chemo treatments but not this bad. - Related Data Allergies Allergy/AdvReac Type Severity Reaction Status Date / Time No Known Drug Allergies Allergy Cannot Verified 07/26/20 18:03 Remember Home Meds: Home Meds Omeprazole 20 mg PO QAM 01/02/17 [History] Simvastatin [Zocor] 40 mg PO BEDTIME 01/02/17 [History] metOLazone [Metolazone] 1.25 mg PO ASDIRECTED 01/02/17 [History] Calcium Carbonate/Vitamin D3 [Calcium 600-Vit D3 500 Softgel] 1 tab PO QAM 03/08/18 [History] Cyanocobalamin (Vitamin B-12) [B-12] 1,000 mcg PO QAM 03/08/18 [History] allopurinoL [Zyloprim] 200 mg PO QAM 03/08/18 [History] metFORMIN [Glucophage XR] 500 mg PO QAM 02/14/20 [History] Ferrous Sulfate [Ferosul] 325 mg PO BID 03/29/20 [History] Acetaminophen [Tylenol] 650 mg PO Q4H PRN 06/02/20 [History] Carboxymethylcellulose Sodium [Artificial Tears] 1.4 ml OP Q2HR PRN 06/02/20 [History] Magnesium Chloride [Slow-Mag] 1 tab PO BID 06/02/20 [History] Metoprolol Tartrate 25 mg PO BID 06/02/20 [History] Ondansetron [Zofran ODT] 8 mg PO Q8HR PRN 06/02/20 [History] Prochlorperazine Maleate [Compazine] 10 mg PO Q6HR PRN 06/02/20 [History] Ascorbic Acid [Vitamin C] 125 mg PO QAM 07/13/20 [History] Bumetanide 2 mg PO QAM 07/13/20 [History] Loperamide HCl [Imodium A-D] 2 mg PO ASDIRECTED 07/13/20 [History] Megestrol [Megace 40 MG/ML Susp] 10 ml PO QAM 07/13/20 [History] Melatonin 3 mg PO BEDTIME 07/13/20 [History] Multivitamin 1 each PO QAM 07/13/20 [History] Nystatin 1 gm TP BID 07/13/20 [History] Potassium Chloride [Klor-Con] 20 meq PO QAM 07/13/20 [History] Sennosides/Docusate Sodium [Senna Plus 8.6-50 mg Tablet] 1 tab PO DAILY PRN 07/13/20 [History] Sennosides/Docusate Sodium [Senna-S 8.6-50 mg Tablet] 1 tab PO BEDTIME 07/13/20 [History] Sodium Chloride 1 gm PO BID 07/13/20 [History] Warfarin [Coumadin] 2.5 mg PO ASDIRECTED 07/13/20 [History] Warfarin [Coumadin] 3.75 mg PO ASDIRECTED 07/13/20 [History] bisacodyL [Dulcolax] 10 mg RC DAILY PRN 07/13/20 [History] polyethylene glycoL 3350 [MiraLAX] 17 gm PO DAILY PRN 07/13/20 [History] Past Medical History HEENT History: Reports: Cataract, Impaired Vision Cardiovascular History: Reports: Afib, Heart Failure, High Cholesterol, Hypertension, PVD, SOB on Exertion Respiratory History: Reports: Pneumonia, Recurrent, Other (See Below) Other Respiratory History: SOB with going up and down stairs Gastrointestinal History: Reports: Chronic Diarrhea, GERD Genitourinary History: Reports: Chronic Renal Insuffiency, Renal Disease, Urinary Incontinence Other Genitourinary History: 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 chemotherapy-induced neutropenia Immunologic History: Reports: Immunosuppression Oncologic (Cancer) History: Reports: Breast, Colon, Liver, Metastatic, Other (See Below) Other Oncologic History: lumpectomy with radiation - Infectious Disease History Infectious Disease History: Reports: Chicken Pox, Measles - Past Surgical History HEENT Surgical History: Reports: Cataract Surgery Cardiovascular Surgical History: Reports: None Respiratory Surgical History: Reports: None GI Surgical History: Reports: Colonoscopy Female Surgical History: Reports: Breast Biopsy, Hysterectomy Endocrine Surgical History: Reports: None Musculoskeletal Surgical History: Reports: None Oncologic Surgical History: Reports: Lumpectomy - Past Imaging History Past Imaging History: Reports: Cardiac Echo, Xray Social & Family History - Family History Family Medical History: No Pertinent Family History - Caffeine Use Caffeine Use: Reports: None ED ROS GENERAL - Review of Systems Review Of Systems: See Below Constitutional: Reports: Malaise, Weakness (general). Denies: Fever, Chills HEENT: Denies: Ear Pain, Throat Pain, Vision Change Respiratory: Denies: Shortness of Breath, Cough Cardiovascular: Denies: Chest Pain, Lightheadedness, Syncope GI/Abdominal: Reports: Diarrhea (a couple times three days ago), Vomiting (three days ago). Denies: Abdominal Pain, Constipation, Nausea (not now) : Denies: Dysuria, Flank Pain Musculoskeletal: Reports: No Symptoms Skin: Denies: Cyanosis, Jaundice, Mottled, Pallor, Diaphoresis Neurological: Reports: Difficulty Walking (chronic; she uses a lift for transfers). Denies: Confusion, Headache, Seizure, Syncope, Trouble Speaking Psychiatric: Denies: Agitation Hematologic/Lymphatic: Reports: Anemia (history of) ED EXAM, GENERAL - Physical Exam Exam: See Below Exam Limited By: No Limitations General Appearance: Alert, WD/WN, No Apparent Distress Eye Exam: Bilateral Eye: EOMI, Normal Inspection, PERRL Ears: Normal External Exam, Hearing Grossly Normal Nose: Normal Inspection, No Blood Throat/Mouth: Normal Inspection, Normal Lips, Normal Voice, No Airway Compromise Head: Atraumatic, Normocephalic Neck: Normal Inspection, Full Range of Motion Respiratory/Chest: No Respiratory Distress, No Accessory Muscle Use, Crackles (slight to mild in right lung base) Cardiovascular: Normal Peripheral Pulses, Irregularly Irregular Peripheral Pulses: 2+: Carotid (L), Carotid (R), Radial (L), Radial (R), Dorsalis Pedis (L), Dorsalis Pedis (R) Course - Vital Signs Last Recorded V/S: Last Vital Signs Temp 97.7 F 07/26/20 18:00 Pulse 99 07/26/20 18:00 Resp 18 07/26/20 18:00 BP 112/53 L 07/26/20 18:00 Pulse Ox 95 07/26/20 18:00 - Orders/Labs/Meds Orders: Active Orders 24 hr Category Date Time Status Patient Status Manage Transfer [TRANSFER] Routine ADT 07/26/20 18:40 Active Patient Status [ADT] Routine ADT 07/26/20 18:38 Active CXR [Chest 2V] [CR] Stat Exams 07/26/20 17:32 Ordered CULTURE URINE [RM] Stat Lab 07/26/20 18:09 Ordered Labs: Laboratory Tests 07/26/20 07/26/20 07/26/20 Range/Units 17:45 17:45 17:45 WBC 11.22 H (5.00-10.00) 10^3/uL RBC 3.55 L (3.80-5.50) 10^6/uL Hgb 11.3 L (12.0-16.0) g/dL Hct 32.8 L (37.0-47.0) % MCV 92.4 H D (82.0-92.0) fL MCH 31.8 H (27.0-31.0) pg MCHC 34.5 (32.0-36.0) g/dL RDW 19.7 H (11.5-14.5) % Plt Count 361 D (150-400) 10^3/uL MPV 9.5 (7.4-10.4) fL Immature Gran % (Auto) 0.6 (0.0-5.0) % Neut % (Auto) 80.6 H (50.0-70.0) % Lymph % (Auto) 7.8 L (20.0-40.0) % [place] % (Auto) 11.0 H (2.0-8.0) % Eos % (Auto) 0.0 L (1.0-3.0) % Baso % (Auto) 0.0 (0.0-1.0) % Neut # (Auto) 9.04 H (2.50-7.00) 10^3/uL Lymph # (Auto) 0.88 L (1.00-4.00) 10^3/uL [place] # (Auto) 1.23 H (0.10-0.80) 10^3/uL Eos # (Auto) 0.00 L (0.10-0.30) 10^3/uL Baso # (Auto) 0.00 (0.00-0.10) 10^3/uL Immature Gran # (Auto) 0.07 (0.00-0.50) 10^3/uL Sodium 124 L (136-145) mmol/L Potassium 2.6 L (3.5-5.1) mmol/L Chloride 90 L (98-107) mmol/L Carbon Dioxide 15.2 L (21.0-32.0) mmol/L Anion Gap 21.4 H (5-15) mmol/L BUN 79 H* D (7-18) mg/dL Creatinine 2.16 H D (0.51-1.17) mg/dL Est Cr Clr Drug Dosing 18.54 mL/min Estimated GFR (MDRD) 22 mL/min Glucose 171 H (70-140) mg/dL Calcium 9.5 (8.7-10.3) mg/dL Total Bilirubin 0.2 (0.2-1.0) mg/dL AST 19 (15-37) U/L ALT 16 (14-63) U/L Alkaline Phosphatase 84 (46-116) U/L Total Protein 5.8 L (6.4-8.2) g/dL Albumin 2.72 L (3.40-5.00) g/dL Specimen Type Urinblad Urine Color Yellow (YELLOW) Urine Appearance Cloudy H (CLEAR) Urine pH 5.5 (5.0-9.0) Ur Specific [place] 1.010 (1.005-1.030) Urine Protein Trace H (NEGATIVE) mg/dL Urine Glucose (UA) Negative (NEGATIVE) mg/dL Urine Ketones Negative (NEGATIVE) mg/dL Urine Occult Blood Trace-intact H (NEGATIVE) Urine Nitrite Negative (NEGATIVE) Urine Bilirubin Negative (NEGATIVE) Urine Urobilinogen 0.2 (0.2-1.0) E.U./dL Ur Leukocyte Esterase Trace H (NEGATIVE) Urine RBC 0-5 (0-5) /HPF Urine WBC 10-20 H (0-5) /HPF Amorphous Sediment Few (0/HPF) /HPF Urine Bacteria Few (NONE TO FEW) /HPF SARS CoV-2 RNA Rapid FERNANDO (NEGATIVE) 07/26/20 Range/Units 18:38 WBC (5.00-10.00) 10^3/uL RBC (3.80-5.50) 10^6/uL Hgb (12.0-16.0) g/dL Hct (37.0-47.0) % MCV (82.0-92.0) fL MCH (27.0-31.0) pg MCHC (32.0-36.0) g/dL RDW (11.5-14.5) % Plt Count (150-400) 10^3/uL MPV (7.4-10.4) fL Immature Gran % (Auto) (0.0-5.0) % Neut % (Auto) (50.0-70.0) % Lymph % (Auto) (20.0-40.0) % [place] % (Auto) (2.0-8.0) % Eos % (Auto) (1.0-3.0) % Baso % (Auto) (0.0-1.0) % Neut # (Auto) (2.50-7.00) 10^3/uL Lymph # (Auto) (1.00-4.00) 10^3/uL [place] # (Auto) (0.10-0.80) 10^3/uL Eos # (Auto) (0.10-0.30) 10^3/uL Baso # (Auto) (0.00-0.10) 10^3/uL Immature Gran # (Auto) (0.00-0.50) 10^3/uL Sodium (136-145) mmol/L Potassium (3.5-5.1) mmol/L Chloride (98-107) mmol/L Carbon Dioxide (21.0-32.0) mmol/L Anion Gap (5-15) mmol/L BUN (7-18) mg/dL Creatinine (0.51-1.17) mg/dL Est Cr Clr Drug Dosing mL/min Estimated GFR (MDRD) mL/min Glucose (70-140) mg/dL Calcium (8.7-10.3) mg/dL Total Bilirubin (0.2-1.0) mg/dL AST (15-37) U/L ALT (14-63) U/L Alkaline Phosphatase (46-116) U/L Total Protein (6.4-8.2) g/dL Albumin (3.40-5.00) g/dL Specimen Type Urine Color (YELLOW) Urine Appearance (CLEAR) Urine pH (5.0-9.0) Ur Specific [place] (1.005-1.030) Urine Protein (NEGATIVE) mg/dL Urine Glucose (UA) (NEGATIVE) mg/dL Urine Ketones (NEGATIVE) mg/dL Urine Occult Blood (NEGATIVE) Urine Nitrite (NEGATIVE) Urine Bilirubin (NEGATIVE) Urine Urobilinogen (0.2-1.0) E.U./dL Ur Leukocyte Esterase (NEGATIVE) Urine RBC (0-5) /HPF Urine WBC (0-5) /HPF Amorphous Sediment (0/HPF) /HPF Urine Bacteria (NONE TO FEW) /HPF SARS CoV-2 RNA Rapid FERNANDO Negative (NEGATIVE) Meds: Medications Discontinued Medications Generic Name Dose Route Start Last Admin Trade Name Freq PRN Reason Stop Dose Admin Ceftriaxone Sodium 1 gm 07/26/20 18:42 07/26/20 18:59 Ceftriaxone 1 Gm Vial IVPUSH 07/26/20 18:43 1 gm ONETIME ONE Administration Sodium Chloride 1,000 mls @ 999 mls/hr 07/26/20 17:35 07/26/20 18:10 Normal Saline IV 07/26/20 18:35 999 mls/hr .BOLUS ONE Administration - Re-Assessments/Exams Free Text/Narrative Re-Assessment/Exam: 07/26/20 18:44 Labs reviewed showing dehydration and mild UTI. CXR shows no evidence of pneumonia, edema or effusion. Discussed findings and plan with patient. I reviewed the recent urine culture report showing E coli susceptible to ceftriaxone. It was done nearly two months ago however. I was told there was a more recent one that showed E Coli also but we can't access it to confirm. Discussed case with Dr. Foote who accepted for admission to observation. Fluids and Rocephin given in ER. Patient stable. 07/26/20 19:15 Covid is negative. Will admit now. Departure - Departure Time of Disposition: 18:42 Disposition: Refer to Observation Condition: Fair Clinical Impression: Hypovolemia due to dehydration, UTI (urinary tract infection) due to Enterococcus, Acute kidney injury, Liver malignancy, Cancer of ascending colon, Weakness generalized - Discharge Information Referrals: James Rizvi, CERTIFIED COMPOSITES TECHNICIAN [Primary Care Provider] - Sepsis Event Note (ED) - Focused Exam Vital Signs: Vital Signs Temp Pulse Resp BP Pulse Ox 07/26/20 18:00 97.7 F 99 18 112/53 L 95 07/26/20 16:30 97 F 96 20 112/48 L 97 - My Orders Last 24 Hours: My Active Orders 07/26/20 17:32 CXR [Chest 2V] [CR] Stat 07/26/20 18:09 CULTURE URINE [RM] Stat 07/26/20 18:38 Patient Status [ADT] Routine 07/26/20 18:40 Patient Status Manage Transfer [TRANSFER] Routine - Assessment/Plan Last 24 Hours: My Active Orders 07/26/20 17:32 CXR [Chest 2V] [CR] Stat 07/26/20 18:09 CULTURE URINE [RM] Stat 07/26/20 18:38 Patient Status [ADT] Routine 07/26/20 18:40 Patient Status Manage Transfer [TRANSFER] Routine
--- NOTE | 2020-07-26 17:11 | CR ---
[id number] RAD/RAD Chest PA And Lateral EXAM: RAD Chest PA And Lateral INDICATION: WEAKNESS. COMPARISON: March 31, 2020 DISCUSSION: Right IJ port catheter in place. Tip in the superior SVC. Mild cardiomegaly and central vascular congestion. Findings are similar to the prior examination. No pleural effusion or pneumothorax. No pneumonia or evidence of pulmonary edema. IMPRESSION: As above. Rafael Roa MD 07/26/20 [id number] Thank you for allowing us to participate in the care of your patient.
[2020-07-26] MEDS ORDERED: Sodium Chloride 0.9% 1,000 ML IV ONE (17:35)
[2020-07-26 17:56] LABS: ANION GAP 21.4 mmol/L (5-15)
[2020-07-26] MEDS ORDERED: cefTRIAXone 1 GM Vial IVPUSH ONE (18:42)
[2020-07-26] MEDS ORDERED: Sodium Chloride 0.9% 1,000 ML IV SCH ×2 (19:39→20:09)
[2020-07-26] MEDS ORDERED: Polyethylene Glycol 3350 Powder 17 GM Packet PO PRN (20:52)
[2020-07-26] MEDS ORDERED: Acetaminophen 325 MG Tab PO PRN (20:52)
[2020-07-26] MEDS ORDERED: Prochlorperazine 5 MG Tab PO PRN (20:52)
[2020-07-26] MEDS ORDERED: Bisacodyl 10 MG Supp RECTAL PRN (20:52)
[2020-07-26] MEDS ORDERED: Loperamide 2 MG Cap PO PRN (20:52)
[2020-07-26] MEDS ORDERED: Potassium Chloride 20 MEQ Packet PO SCH (21:15)
[2020-07-26] MEDS ORDERED: Potassium Chloride 20 MEQ Packet ONE (21:30)
[2020-07-26] MEDS: Metoprolol Tartrate 25 MG Tab PO SCH (22:19)
[2020-07-26] MEDS: Magnesium Chloride 64 MG Tab.ER PO SCH (22:19)
[2020-07-26] MEDS: Melatonin 3 MG Tab PO SCH (22:19)
[2020-07-26] MEDS ORDERED: Potassium Chloride 20 MEQ Packet PO ONE (22:25)
[2020-07-27] MEDS: Simvastatin 20 MG Tab PO SCH ×2 (00:49→20:23)
[2020-07-27] MEDS: Ferrous Sulfate 325 MG Tab PO SCH ×3 (00:49→17:49)
[2020-07-27] MEDS: Nystatin Topical Powder 15 GM Bottle TOP SCH ×3 (00:50→21:33)
[2020-07-27] MEDS: Sodium Chloride 1 GM Tab PO SCH ×3 (01:31→20:23)
[2020-07-27] MEDS: Omeprazole 20 MG Cap.CR PO SCH (08:00)
[2020-07-27] MEDS: Potassium Chloride 20 MEQ Packet PO SCH (08:18)
[2020-07-27] MEDS: Allopurinol 100 MG Tab PO SCH (08:19)
[2020-07-27] MEDS: Cyanocobalamin (Vitamin B12) 500 MCG Tab PO SCH (08:19)
[2020-07-27] MEDS: Megestrol Susp 40 MG/ML 10 ML UD Cup PO SCH (08:19)
[2020-07-27] MEDS: Magnesium Chloride 64 MG Tab.ER PO SCH ×2 (08:19→20:23)
[2020-07-27] MEDS: Metoprolol Tartrate 25 MG Tab PO SCH ×2 (08:20→20:23)
[2020-07-27 08:41] LABS: ANION GAP 19.4 mmol/L (5-15)
--- NOTE | 2020-07-27 09:29 | PCM.HP.2 ---
H&P History of Present Illness - General Date of Service: 07/27/20 Admit Problem/Dx: Admission Diagnosis/Problem Admission Diagnosis/Problem Acute kidney injury Source of Information: Patient, Old Records, Provider, RN Abdomen Pain Score (Numeric/FACES): 5 - Related Data Allergies/Adverse Reactions: Allergies Allergy/AdvReac Type Severity Reaction Status Date / Time No Known Drug Allergies Allergy Cannot Verified 07/26/20 18:03 Remember Home Medications: Home Meds Omeprazole 20 mg PO QAM 01/02/17 [History] Simvastatin [Zocor] 40 mg PO BEDTIME 01/02/17 [History] metOLazone [Metolazone] 1.25 mg PO ASDIRECTED 01/02/17 [History] Calcium Carbonate/Vitamin D3 [Calcium 600-Vit D3 500 Softgel] 1 tab PO QAM 03/08/18 [History] Cyanocobalamin (Vitamin B-12) [B-12] 1,000 mcg PO QAM 03/08/18 [History] allopurinoL [Zyloprim] 200 mg PO QAM 03/08/18 [History] metFORMIN [Glucophage XR] 500 mg PO QAM 02/14/20 [History] Ferrous Sulfate [Ferosul] 325 mg PO BID 03/29/20 [History] Acetaminophen [Tylenol] 650 mg PO Q4H PRN 06/02/20 [History] Carboxymethylcellulose Sodium [Artificial Tears] 1.4 ml OP Q2HR PRN 06/02/20 [History] Magnesium Chloride [Slow-Mag] 1 tab PO BID 06/02/20 [History] Metoprolol Tartrate 25 mg PO BID 06/02/20 [History] Ondansetron [Zofran ODT] 8 mg PO Q8HR PRN 06/02/20 [History] Prochlorperazine Maleate [Compazine] 10 mg PO Q6HR PRN 06/02/20 [History] Ascorbic Acid [Vitamin C] 125 mg PO QAM 07/13/20 [History] Bumetanide 2 mg PO QAM 07/13/20 [History] Loperamide HCl [Imodium A-D] 2 mg PO ASDIRECTED 07/13/20 [History] Megestrol [Megace 40 MG/ML Susp] 10 ml PO QAM 07/13/20 [History] Melatonin 3 mg PO BEDTIME 07/13/20 [History] Multivitamin 1 each PO QAM 07/13/20 [History] Nystatin 1 gm TP BID 07/13/20 [History] Potassium Chloride [Klor-Con] 20 meq PO QAM 07/13/20 [History] Sennosides/Docusate Sodium [Senna Plus 8.6-50 mg Tablet] 1 tab PO DAILY PRN 07/13/20 [History] Sennosides/Docusate Sodium [Senna-S 8.6-50 mg Tablet] 1 tab PO BEDTIME 07/13/20 [History] Sodium Chloride 1 gm PO BID 07/13/20 [History] Warfarin [Coumadin] 2.5 mg PO ASDIRECTED 07/13/20 [History] bisacodyL [Dulcolax] 10 mg RC DAILY PRN 07/13/20 [History] polyethylene glycoL 3350 [MiraLAX] 17 gm PO DAILY PRN 07/13/20 [History] Past Medical History HEENT History: Reports: Cataract, Impaired Vision Cardiovascular History: Reports: Afib, Heart Failure, High Cholesterol, Hypertension, PVD, SOB on Exertion Respiratory History: Reports: Pneumonia, Recurrent, Other (See Below) Other Respiratory History: SOB with going up and down stairs Gastrointestinal History: Reports: Chronic Diarrhea, GERD Genitourinary History: Reports: Chronic Renal Insuffiency, Renal Disease, Urinary Incontinence Other Genitourinary History: dribbling [employer] History: Reports: Musculoskeletal History: Reports: Arthritis Endocrine/Metabolic History: Reports: Diabetes, Type II, IDDM, Obesity/BMI 30+ Hematologic History: Reports: Anemia, Anticoagulation Therapy, B12 Deficiency, Blood Transfusion(s), Iron Deficiency, Other (See Below) Other Hematologic History: chemotherapy-induced anemia. chemotherapy-induced neutropenia Immunologic History: Reports: Immunosuppression Oncologic (Cancer) History: Reports: Breast, Colon, Liver, Metastatic, Other (See Below) Other Oncologic History: lumpectomy with radiation - Infectious Disease History Infectious Disease History: Reports: Chicken Pox, Measles - Past Surgical History HEENT Surgical History: Reports: Cataract Surgery Cardiovascular Surgical History: Reports: None Respiratory Surgical History: Reports: None GI Surgical History: Reports: Colonoscopy Female Surgical History: Reports: Breast Biopsy, Hysterectomy Endocrine Surgical History: Reports: None Musculoskeletal Surgical History: Reports: None Oncologic Surgical History: Reports: Lumpectomy Other Oncologic Surgeries/Procedures: Masses to abdomen, liver, and colon - Past Imaging History Past Imaging History: Reports: Cardiac Echo, Xray Social & Family History - Family History Family Medical History: No Pertinent Family History - Tobacco Use Tobacco Use Status *Q: Never Tobacco User - Caffeine Use Caffeine Use: Reports: None - Recreational Drug Use Recreational Drug Use: No H&P Review of Systems - Review of Systems: Review Of Systems: See Below General: Reports: Malaise, Weakness, Fatigue. Denies: Fever, Chills, Night Sweats, Diaphoresis, Decreased Appetite HEENT: Reports: No Symptoms Pulmonary: Denies: Shortness of Breath, Wheezing, Cough, Sputum, Hemoptysis Cardiovascular: Denies: Chest Pain, Palpitations, Edema, Blood Pressure Problem Gastrointestinal: Denies: Abdominal Pain, Anorexia, Black Stool, Bloody Stool, Constipation, Diarrhea, Decreased Appetite, Difficulty Swallowing, Distension, Nausea, Vomiting Genitourinary: Denies: Dysuria, Frequency, Burning, Pain, Urgency, Hematuria Musculoskeletal: Reports: No Symptoms Skin: Reports: Bruising. Denies: Pruritis, Wound Psychiatric: Reports: Mood Lability Neurological: Reports: Pre-Existing Deficit, Weakness. Denies: Confusion, Numbness Hematologic/Lymphatic: Reports: Easy Bleeding, Easy Bruising. Denies: Swollen Glands Immunologic: Reports: No Symptoms Exam - Exam Exam: See Below - Vital Signs Vital Signs: Last Vital Signs Temp 96.7 F L 07/27/20 06:51 Pulse 98 07/27/20 08:20 Resp 20 07/27/20 06:51 BP 110/51 L 07/27/20 08:20 Pulse Ox 97 07/27/20 06:51 Weight: 210 lb - Exam Quality Assessment: Supplemental Oxygen, DVT Prophylaxis, Other (port left chest wall, anterior, intact) HEENT: No: Mucosa Moist & [place] Neck: Supple. No: JVD Lungs: Clear to Auscultation, Normal Respiratory Effort. No: Decreased Breath Sounds, Crackles, Rales, Rhonchi, Stridor, Wheezing Cardiovascular: Regular Rate, Irregular Rhythm GI/Abdominal Exam: Soft, Non-Tender, No Organomegaly. No: Distended, Guarding, Rigid, Rebound, Tender Back Exam: No: CVA Tenderness (L), CVA Tenderness (R) Extremities: No Pedal Edema (Lower extremities, markedly shrink and wrinkling from her baseline of edematous state) Peripheral Pulses: 2+: Radial (L), Radial (R) Neurological: Normal Speech, Normal Tone, Sensation Intact Neuro Extensive - Mental Status: Alert, Oriented x3. No: Normal Mood/Affect Neuro Extensive - Motor, Sensory, Reflexes: No: Normal Gait, Tongue Deviation (L), Tongue Deviation (R) Psychiatric: Alert, Labile Mood, Depressed - Patient Data Lab Results Last 24 hrs: Laboratory Results - last 24 hr 07/26/20 07/26/20 07/26/20 Range/Units 17:45 17:45 17:45 WBC 11.22 H (5.00-10.00) 10^3/uL RBC 3.55 L (3.80-5.50) 10^6/uL Hgb 11.3 L (12.0-16.0) g/dL Hct 32.8 L (37.0-47.0) % MCV 92.4 H D (82.0-92.0) fL MCH 31.8 H (27.0-31.0) pg MCHC 34.5 (32.0-36.0) g/dL RDW 19.7 H (11.5-14.5) % Plt Count 361 D (150-400) 10^3/uL MPV 9.5 (7.4-10.4) fL Immature Gran % (Auto) 0.6 (0.0-5.0) % Neut % (Auto) 80.6 H (50.0-70.0) % Lymph % (Auto) 7.8 L (20.0-40.0) % [place] % (Auto) 11.0 H (2.0-8.0) % Eos % (Auto) 0.0 L (1.0-3.0) % Baso % (Auto) 0.0 (0.0-1.0) % Neut # (Auto) 9.04 H (2.50-7.00) 10^3/uL Lymph # (Auto) 0.88 L (1.00-4.00) 10^3/uL [place] # (Auto) 1.23 H (0.10-0.80) 10^3/uL Eos # (Auto) 0.00 L (0.10-0.30) 10^3/uL Baso # (Auto) 0.00 (0.00-0.10) 10^3/uL Immature Gran # (Auto) 0.07 (0.00-0.50) 10^3/uL PT (9.2-11.2) SEC INR (0.9-1.1) Sodium 124 L (136-145) mmol/L Potassium 2.6 L (3.5-5.1) mmol/L Chloride 90 L (98-107) mmol/L Carbon Dioxide 15.2 L (21.0-32.0) mmol/L Anion Gap 21.4 H (5-15) mmol/L BUN 79 H* D (7-18) mg/dL Creatinine 2.16 H D (0.51-1.17) mg/dL Est Cr Clr Drug Dosing 18.54 mL/min Estimated GFR (MDRD) 22 mL/min Glucose 171 H (70-140) mg/dL Calcium 9.5 (8.7-10.3) mg/dL Magnesium (1.8-2.4) mg/dL Total Bilirubin 0.2 (0.2-1.0) mg/dL AST 19 (15-37) U/L ALT 16 (14-63) U/L Alkaline Phosphatase 84 (46-116) U/L Total Protein 5.8 L (6.4-8.2) g/dL Albumin 2.72 L (3.40-5.00) g/dL Specimen Type Urinblad Urine Color Yellow (YELLOW) Urine Appearance Cloudy H (CLEAR) Urine pH 5.5 (5.0-9.0) Ur Specific [place] 1.010 (1.005-1.030) Urine Protein Trace H (NEGATIVE) mg/dL Urine Glucose (UA) Negative (NEGATIVE) mg/dL Urine Ketones Negative (NEGATIVE) mg/dL Urine Occult Blood Trace-intact H (NEGATIVE) Urine Nitrite Negative (NEGATIVE) Urine Bilirubin Negative (NEGATIVE) Urine Urobilinogen 0.2 (0.2-1.0) E.U./dL Ur Leukocyte Esterase Trace H (NEGATIVE) Urine RBC 0-5 (0-5) /HPF Urine WBC 10-20 H (0-5) /HPF Amorphous Sediment Few (0/HPF) /HPF Urine Bacteria Few (NONE TO FEW) /HPF SARS CoV-2 RNA Rapid FERNANDO (NEGATIVE) 07/26/20 07/26/20 07/26/20 Range/Units 17:45 18:38 20:45 WBC (5.00-10.00) 10^3/uL RBC (3.80-5.50) 10^6/uL Hgb (12.0-16.0) g/dL Hct (37.0-47.0) % MCV (82.0-92.0) fL MCH (27.0-31.0) pg MCHC (32.0-36.0) g/dL RDW (11.5-14.5) % Plt Count (150-400) 10^3/uL MPV (7.4-10.4) fL Immature Gran % (Auto) (0.0-5.0) % Neut % (Auto) (50.0-70.0) % Lymph % (Auto) (20.0-40.0) % [place] % (Auto) (2.0-8.0) % Eos % (Auto) (1.0-3.0) % Baso % (Auto) (0.0-1.0) % Neut # (Auto) (2.50-7.00) 10^3/uL Lymph # (Auto) (1.00-4.00) 10^3/uL [place] # (Auto) (0.10-0.80) 10^3/uL Eos # (Auto) (0.10-0.30) 10^3/uL Baso # (Auto) (0.00-0.10) 10^3/uL Immature Gran # (Auto) (0.00-0.50) 10^3/uL PT (9.2-11.2) SEC INR > 8.0 H* (0.9-1.1) Sodium (136-145) mmol/L Potassium (3.5-5.1) mmol/L Chloride (98-107) mmol/L Carbon Dioxide (21.0-32.0) mmol/L Anion Gap (5-15) mmol/L BUN (7-18) mg/dL Creatinine (0.51-1.17) mg/dL Est Cr Clr Drug Dosing mL/min Estimated GFR (MDRD) mL/min Glucose (70-140) mg/dL Calcium (8.7-10.3) mg/dL Magnesium 1.7 L (1.8-2.4) mg/dL Total Bilirubin (0.2-1.0) mg/dL AST (15-37) U/L ALT (14-63) U/L Alkaline Phosphatase (46-116) U/L Total Protein (6.4-8.2) g/dL Albumin (3.40-5.00) g/dL Specimen Type Urine Color (YELLOW) Urine Appearance (CLEAR) Urine pH (5.0-9.0) Ur Specific [place] (1.005-1.030) Urine Protein (NEGATIVE) mg/dL Urine Glucose (UA) (NEGATIVE) mg/dL Urine Ketones (NEGATIVE) mg/dL Urine Occult Blood (NEGATIVE) Urine Nitrite (NEGATIVE) Urine Bilirubin (NEGATIVE) Urine Urobilinogen (0.2-1.0) E.U./dL Ur Leukocyte Esterase (NEGATIVE) Urine RBC (0-5) /HPF Urine WBC (0-5) /HPF Amorphous Sediment (0/HPF) /HPF Urine Bacteria (NONE TO FEW) /HPF SARS CoV-2 RNA Rapid FERNANDO Negative (NEGATIVE) 07/27/20 07/27/20 07/27/20 Range/Units 07:09 07:09 07:09 WBC 12.20 H (5.00-10.00) 10^3/uL RBC 3.38 L (3.80-5.50) 10^6/uL Hgb 11.0 L (12.0-16.0) g/dL Hct 31.3 L (37.0-47.0) % MCV 92.6 H (82.0-92.0) fL MCH 32.5 H (27.0-31.0) pg MCHC 35.1 (32.0-36.0) g/dL RDW 19.5 H (11.5-14.5) % Plt Count 347 (150-400) 10^3/uL MPV 9.5 (7.4-10.4) fL Immature Gran % (Auto) 0.7 (0.0-5.0) % Neut % (Auto) 81.4 H (50.0-70.0) % Lymph % (Auto) 7.7 L (20.0-40.0) % [place] % (Auto) 10.1 H (2.0-8.0) % Eos % (Auto) 0.1 L (1.0-3.0) % Baso % (Auto) 0.0 (0.0-1.0) % Neut # (Auto) 9.93 H (2.50-7.00) 10^3/uL Lymph # (Auto) 0.94 L (1.00-4.00) 10^3/uL [place] # (Auto) 1.23 H (0.10-0.80) 10^3/uL Eos # (Auto) 0.01 L (0.10-0.30) 10^3/uL Baso # (Auto) 0.00 (0.00-0.10) 10^3/uL Immature Gran # (Auto) 0.09 (0.00-0.50) 10^3/uL PT 198.7 H D (9.2-11.2) SEC INR 21.2 H* (0.9-1.1) Sodium 126 L (136-145) mmol/L Potassium 3.0 L (3.5-5.1) mmol/L Chloride 94 L (98-107) mmol/L Carbon Dioxide 15.6 L (21.0-32.0) mmol/L Anion Gap 19.4 H (5-15) mmol/L BUN 81 H* (7-18) mg/dL Creatinine 2.17 H (0.51-1.17) mg/dL Est Cr Clr Drug Dosing 18.45 mL/min Estimated GFR (MDRD) 22 mL/min Glucose 165 H (70-140) mg/dL Calcium 9.4 (8.7-10.3) mg/dL Magnesium 2.0 (1.8-2.4) mg/dL Total Bilirubin (0.2-1.0) mg/dL AST (15-37) U/L ALT (14-63) U/L Alkaline Phosphatase (46-116) U/L Total Protein (6.4-8.2) g/dL Albumin (3.40-5.00) g/dL Specimen Type Urine Color (YELLOW) Urine Appearance (CLEAR) Urine pH (5.0-9.0) Ur Specific [place] (1.005-1.030) Urine Protein (NEGATIVE) mg/dL Urine Glucose (UA) (NEGATIVE) mg/dL Urine Ketones (NEGATIVE) mg/dL Urine Occult Blood (NEGATIVE) Urine Nitrite (NEGATIVE) Urine Bilirubin (NEGATIVE) Urine Urobilinogen (0.2-1.0) E.U./dL Ur Leukocyte Esterase (NEGATIVE) Urine RBC (0-5) /HPF Urine WBC (0-5) /HPF Amorphous Sediment (0/HPF) /HPF Urine Bacteria (NONE TO FEW) /HPF SARS CoV-2 RNA Rapid FERNANDO (NEGATIVE) Result Diagrams: 07/28/20 07:10 07/28/20 07:10 Sepsis Event Note - Evaluation Sepsis Screening Result: No Definite Risk - Focused Exam Vital Signs: Vital Signs Temp Pulse Pulse Resp BP BP Pulse Ox 07/27/20 08:20 98 110/51 L 07/27/20 06:51 96.7 F L 100 20 117/45 L 97 07/27/20 03:00 97.9 F 101 H 20 111/49 L 97 07/26/20 22:48 96.8 F L 98 20 116/41 L 98 07/26/20 22:19 104 H 104/52 L Problem List Initiated/Reviewed/Updated: Yes Orders Last 24hrs: Active Orders 24 hr Category Date Time Status Patient Status [ADT] Routine ADT 07/26/20 18:30 Active Intake and Output [RC] 06,14,22 Care 07/26/20 19:57 Active Oxygen Therapy [RC] .PRN Care 07/26/20 19:57 Active Up With Assistance [RC] 09 Care 07/26/20 19:56 Active Vital Signs [RC] 03,07,11,15,19,23 Care 07/26/20 19:57 Active CULTURE URINE [RM] Stat Lab 07/26/20 17:45 Received INR,PT,PROTHROMBIN TIME [COAG] Routine Lab 07/27/20 09:22 Ordered Acetaminophen [TylenoL] Med 07/26/20 20:52 Active 650 mg PO Q4H PRN Ascorbic Acid [Vitamin C] Med 07/27/20 09:00 Pending 125 mg PO QAM Cyanocobalamin (Vitamin B12) [Vitamin B12] Med 07/27/20 09:00 Active 1,000 mcg PO QAM Docusate Sodium/Sennosides [Senna Plus] Med 07/27/20 00:45 Active 1 tab PO BEDTIME Docusate Sodium/Sennosides [Senna Plus] Med 07/26/20 20:52 Active 1 tab PO DAILY PRN Ferrous Sulfate Med 07/27/20 00:45 Active 325 mg PO BIDMEALS Loperamide [Imodium] Med 07/26/20 20:52 Active 2 mg PO ASDIRECTED PRN Magnesium Chloride [Mag-64] Med 07/26/20 22:00 Active 64 mg PO BID Megestrol [Megace 40 MG/ML Susp] Med 07/27/20 09:00 Active 400 mg PO QAM Melatonin Med 07/26/20 21:00 Active 3 mg PO BEDTIME Metoprolol Tartrate [Lopressor] Med 07/26/20 21:00 Active 25 mg PO BID Nystatin [Nystop] Med 07/27/20 01:00 Active 0 gm TOP BID Omeprazole Med 07/27/20 07:30 Active 20 mg PO ACBREAKFAST Ondansetron [Zofran ODT] Med 07/26/20 20:52 Active 8 mg PO Q8H PRN Potassium Chloride [Klor-Con] Med 07/27/20 09:00 Active 20 meq PO QAM Prochlorperazine [Compazine] Med 07/26/20 20:52 Active 10 mg PO Q6H PRN Simvastatin [Zocor] Med 07/27/20 00:45 Active 40 mg PO BEDTIME Sodium Chloride Med 07/27/20 00:45 Active 1 gm PO BID Sodium Chloride 0.9% [Normal Saline] 1,000 ml Med 07/26/20 20:09 Active IV ASDIRECTED allopurinoL [Zyloprim] Med 07/27/20 09:00 Active 200 mg PO QAM bisacodyL [Dulcolax] Med 07/26/20 20:52 Active 10 mg RECTAL DAILY PRN polyethylene glycoL 3350 [MiraLAX] Med 07/26/20 20:52 Active 17 gm PO DAILY PRN Resuscitation Status Routine Resus Stat 07/26/20 19:56 Ordered Medication Orders Acetaminophen (Acetaminophen 325 Mg Tab) 650 mg PO Q4H PRN PRN Reason: Pain Allopurinol (Allopurinol 100 Mg Tab) 200 mg PO QAM KIT Last Admin: 07/27/20 08:19 Dose: 200 mg Documented by: SANTRYA Bisacodyl (Bisacodyl 10 Mg Supp) 10 mg RECTAL DAILY PRN PRN Reason: Constipation Cyanocobalamin (Cyanocobalamin (Vitamin B12) 500 Mcg Tab) 1,000 mcg PO QAM [facility] Last Admin: 07/27/20 08:19 Dose: 1,000 mcg Documented by: BLAZE Ferrous Sulfate (Ferrous Sulfate 325 Mg Tab) 325 mg PO BIDMEALS [facility] Last Admin: 07/27/20 08:18 Dose: 325 mg Documented by: Admin: 07/27/20 00:49 Dose: Not Given Documented by: NAVI Sodium Chloride (Normal Saline) 1,000 mls @ 100 mls/hr IV ASDIRECTED [facility] Last Admin: 07/27/20 04:41 Dose: 100 mls/hr Documented by: NAVI Loperamide HCl (Loperamide 2 Mg Cap) 2 mg PO ASDIRECTED PRN PRN Reason: Diarrhea Magnesium Chloride (Magnesium Chloride 64 Mg Tab.Er) 64 mg PO BID [facility] Last Admin: 07/27/20 08:19 Dose: 64 mg Documented by: Admin: 07/26/20 22:19 Dose: 64 mg Documented by: NAVI Megestrol Acetate (Megestrol Susp 40 Mg/Ml 10 Ml Ud Cup) [facility] Admin: 07/27/20 08:19 Dose: 400 mg Documented by: BLAZE Melatonin (Melatonin 3 Mg Tab) 3 mg PO BEDTIME [facility] Last Admin: 07/26/20 22:19 Dose: 3 mg Documented by: NAVI Metoprolol Tartrate (Metoprolol Tartrate 25 Mg Tab) 25 mg PO BID [facility] Last Admin: 07/27/20 08:20 Dose: 25 mg Documented by: Admin: 07/26/20 22:19 Dose: 25 mg Documented by: NAVI Non-Formulary Medication (Ascorbic Acid [Vitamin C]) 125 mg PO [facility] Nystatin (Nystatin Topical Powder 15 Gm Bottle) 0 gm TOP BID [facility] Last Admin: 07/27/20 08:43 Dose: 1 applic Documented by: Admin: 07/27/20 00:50 Dose: Not Given Documented by: NAVI Omeprazole (Omeprazole 20 Mg Cap.Cr) 20 mg PO ACBREAKFAST [facility] Last Admin: 07/27/20 08:00 Dose: 20 mg Documented by: SANTRYA Ondansetron HCl (Ondansetron 4 Mg Tab.Dis) 8 mg PO Q8H PRN PRN Reason: Nausea Polyethylene Glycol (Polyethylene Glycol 3350 Powder 17 Gm Packet) 17 gm PO DAILY PRN PRN Reason: Constipation Potassium Chloride (Potassium Chloride 20 Meq Packet) 20 meq PO QAM [facility] Last Admin: 07/27/20 08:18 Dose: 20 meq Documented by: BLAZE Prochlorperazine Maleate (Prochlorperazine 5 Mg Tab) 10 mg PO Q6H PRN PRN Reason: Nausea Senna/Docusate Sodium (Docusate Sodium/Sennosides 50-8.6 Mg Tab) 1 tab PO BEDTIME [facility] Last Admin: 07/27/20 00:49 Dose: Not Given Documented by: NAVI Senna/Docusate Sodium (Docusate Sodium/Sennosides 50-8.6 Mg Tab) 1 tab PO DAILY PRN PRN Reason: Constipation Simvastatin (Simvastatin 20 Mg Tab) 40 mg PO BEDTIME [facility] Last Admin: 07/27/20 00:49 Dose: Not Given Documented by: NAVI Sodium Chloride (Sodium Chloride 1 Gm Tab) 1 gm PO BID [facility] Last Admin: 07/27/20 08:19 Dose: 1 gm Documented by: Admin: 07/27/20 01:31 Dose: 1 gm Documented by: NAVI Assessment/Plan Comment:: History of present illness Alona is a 80 y/o patient was admitted into OBS status due to decreased appetite, p.o. intake, dehydration weakness, possible UTI. Is a resident of [facility] in which she recently underwent inpatient antineoplastic chemotherapy due to liver cancer. ED course Chest x-ray, no pneumonia, edema or effusion. IV fluids bolus, Rocephin Covid negative Hospital course 07/27/2020; patient quite weak, felt large and, extremely dry, no edema, no JVD, repeat INR >20. No hematuria, no bleeding gums or petechiae, 5 mg p.o. vitamin K x1 now, monitor INR levels, may have to repeat vitamin K antagonist. Primary hospital problems --Dehydration, quite profound --NURY, acute on chronic with hx of CKD, suspect prerenal, dehydration state --Hypokalemia --Hyponatremia, chronic, Continue sodium replacement, --Supratherapeutic coagulation --UTI, given elevated inflammatory markers, cont with Rocephin Chronic problems --Liver metastasis, dx 04/06/20; --Colon cancer --Atrial fib, chronic, CHA2 DS2 VASc 5, rate controlled with metoprol, HOLD warfarin/anticoagulation, --Essential hypertension, Metoprolol --Type 2 diabetes mellitus, A1c <6%, HOLD metformin --Chronic kidney disease, stage 3, GFR 60 --Vitamin B12 deficiency Disposition/overall plan --Correct electrolytes and fluid status, --PO Vitamin K, INR 1600 --Hold Metformin, Coumadin, Diuretics - Mortality Measure Prognosis:: Poor
[2020-07-27] MEDS ORDERED: Potassium Bicarbonate 25 MEQ Tab.EFF PO ONE ×2 (10:37→17:00)
[2020-07-27] MEDS: Sodium Chloride 0.9% 1,000 ML IV SCH ×2 (13:25→19:55)
[2020-07-27] MEDS: Ondansetron 4 MG Tab.DIS PO PRN (15:05)
[2020-07-27] MEDS: Melatonin 3 MG Tab PO SCH (21:57)
[2020-07-28] MEDS: Ondansetron 4 MG Tab.DIS PO PRN ×3 (02:33→18:39)
[2020-07-28] MEDS: Sodium Chloride 0.9% 1,000 ML IV SCH ×2 (02:34→09:30)
[2020-07-28] MEDS: Ascorbic Acid 500 MG Tab PO SCH ×2 (07:00→09:58)
[2020-07-28] MEDS: Ferrous Sulfate 325 MG Tab PO SCH ×2 (07:21→18:32)
[2020-07-28] MEDS: Omeprazole 20 MG Cap.CR PO SCH (07:21)
[2020-07-28 08:02] LABS: ANION GAP 22.5 mmol/L (5-15)
--- NOTE | 2020-07-28 09:55 | CR ---
[id number] RAD/RAD Chest PA or AP 1V EXAM: FRONTAL CHEST INDICATION: DECREASED BREATH SOUNDS. COMPARISON: July 26, 2020. DISCUSSION: Stable cardiomegaly. Increased bilateral interstitial and airspace edema and/or infiltrates. Increased left lower lobe atelectasis with associated elevation of the left hemidiaphragm. A right internal jugular approach port tip overlying the SVC. IMPRESSION: 1. Increased bilateral edema and/or infiltrates. Joseph Stubbs MD 07/28/20 0953 Thank you for allowing us to participate in the care of your patient.
[2020-07-28] MEDS: Metoprolol Tartrate 25 MG Tab PO SCH ×2 (09:56→20:33)
[2020-07-28] MEDS: Magnesium Chloride 64 MG Tab.ER PO SCH ×2 (09:56→20:33)
[2020-07-28] MEDS: Potassium Chloride 20 MEQ Packet PO SCH (09:56)
[2020-07-28] MEDS: Sodium Chloride 1 GM Tab PO SCH ×2 (09:57→20:34)
[2020-07-28] MEDS: Cyanocobalamin (Vitamin B12) 500 MCG Tab PO SCH (09:57)
[2020-07-28] MEDS: Megestrol Susp 40 MG/ML 10 ML UD Cup PO SCH (09:57)
[2020-07-28] MEDS: Allopurinol 100 MG Tab PO SCH (09:57)
--- NOTE | 2020-07-28 09:57 | CR ---
[id number] RAD/RAD Abdomen Flat Plate 1V EXAM: RAD Abdomen Flat Plate 1V INDICATION: ABDOMEN PAIN. COMPARISON: None. DISCUSSION: Gas-filled mild to moderately dilated small and large bowel loops throughout the abdomen to the level of the distal descending colon. These changes could be seen in the context of an ileus or a colonic obstruction. Abdomen and pelvis CT with contrast provide further evaluation. No free air or pneumatosis is identified. IMPRESSION: 1. Ileus versus distal colonic obstruction. Joseph Stubbs MD 07/28/20 0955 Thank you for allowing us to participate in the care of your patient.
[2020-07-28] MEDS ORDERED: Furosemide 40 MG/4 ML VIAL IVPUSH ONE ×2 (10:18→18:00)
[2020-07-28] MEDS ORDERED: Potassium Chloride 20 MEQ in Premix Bag 1 BAG IV ONE ×2 (10:20→17:00)
[2020-07-28] MEDS: cefTRIAXone 1 GM Vial IVPUSH SCH (10:20)
[2020-07-28] MEDS: Nystatin Topical Powder 15 GM Bottle TOP SCH ×2 (10:21→19:59)
--- NOTE | 2020-07-28 10:24 | PCM.PN ---
- General Info Date of Service: 07/28/20 Functional Status: Reports: Pain Controlled, Urinating (incontinent urine). Denies: Tolerating Diet, Ambulating - Review of Systems General: Reports: Weakness, Fatigue, Malaise. Denies: Fever, Chills, Night Sweats, Appetite HEENT: Reports: No Symptoms Pulmonary: Denies: Shortness of Breath, Pleuritic Chest Pain, Cough, Sputum, Wheezing Cardiovascular: Denies: Chest Pain, Edema Gastrointestinal: Reports: Abdominal Pain, Decreased Appetite, Vomiting, Other (no BM 3 days). Denies: Nausea Genitourinary: Reports: Incontinence, Retention. Denies: Flank Pain Musculoskeletal: Reports: No Symptoms Skin: Reports: Rash (under left breast) Neurological: Reports: Weakness Psychiatric: Reports: Mood Lability. Denies: Confusion - Patient Data Vitals - Most Recent: Last Vital Signs Temp 98.2 F 07/28/20 06:26 Pulse 99 07/28/20 06:26 Resp 18 07/28/20 06:26 BP 93/43 L 07/28/20 06:26 Pulse Ox 97 07/28/20 06:26 Weight - Most Recent: 210 lb I&O - Last 24 Hours: Intake & Output 07/27/20 07/28/20 07/28/20 22:59 06:59 14:59 Intake Total 1375 1180 Balance 1375 1180 Lab Results Last 24 Hours: Laboratory Results - last 24 hr 07/27/20 07/27/20 07/28/20 Range/Units 09:45 16:00 07:10 WBC (5.00-10.00) 10^3/uL RBC (3.80-5.50) 10^6/uL Hgb (12.0-16.0) g/dL Hct (37.0-47.0) % MCV (82.0-92.0) fL MCH (27.0-31.0) pg MCHC (32.0-36.0) g/dL RDW (11.5-14.5) % Plt Count (150-400) 10^3/uL MPV (7.4-10.4) fL Add Manual Diff Neutrophils % (Manual) (50-70) % Band Neutrophils % (4-12) % Lymphocytes % (Manual) (20-40) % Monocytes % (Manual) (2-8) % Absolute Neutrophils Band Neutrophils # Lymphocytes # (Manual) Monocytes # (Manual) PT 191.9 H 37.5 H D (9.2-11.2) SEC INR 20.5 H* 3.8 H (0.9-1.1) Sodium 130 L (136-145) mmol/L Potassium 3.5 (3.5-5.1) mmol/L Chloride 97 L (98-107) mmol/L Carbon Dioxide 14.0 L (21.0-32.0) mmol/L Anion Gap 22.5 H (5-15) mmol/L BUN 88 H* (7-18) mg/dL Creatinine 2.29 H (0.51-1.17) mg/dL Est Cr Clr Drug Dosing 17.48 mL/min Estimated GFR (MDRD) 21 mL/min Glucose 172 H (70-140) mg/dL Calcium 9.5 (8.7-10.3) mg/dL Magnesium (1.8-2.4) mg/dL Total Bilirubin (0.2-1.0) mg/dL Direct Bilirubin (0.0-0.2) mg/dL Indirect Bilirubin mg/dL AST (15-37) U/L ALT (14-63) U/L Alkaline Phosphatase (46-116) U/L Troponin I (0.000-0.056) ng/mL Total Protein (6.4-8.2) g/dL Albumin (3.40-5.00) g/dL Globulin Albumin/Globulin Ratio 07/28/20 07/28/20 07/28/20 Range/Units 07:10 07:10 07:10 WBC 16.99 H (5.00-10.00) 10^3/uL RBC 3.38 L (3.80-5.50) 10^6/uL Hgb 10.9 L (12.0-16.0) g/dL Hct 32.2 L (37.0-47.0) % MCV 95.3 H (82.0-92.0) fL MCH 32.2 H (27.0-31.0) pg MCHC 33.9 (32.0-36.0) g/dL RDW 20.1 H (11.5-14.5) % Plt Count 351 (150-400) 10^3/uL MPV 9.5 (7.4-10.4) fL Add Manual Diff Yes Neutrophils % (Manual) 80 H (50-70) % Band Neutrophils % 7 (4-12) % Lymphocytes % (Manual) 9 L (20-40) % Monocytes % (Manual) 4 (2-8) % Absolute Neutrophils 13.59 Band Neutrophils # 1.19 Lymphocytes # (Manual) 1.53 Monocytes # (Manual) 0.68 PT 17.8 H D (9.2-11.2) SEC INR 1.8 H (0.9-1.1) Sodium (136-145) mmol/L Potassium (3.5-5.1) mmol/L Chloride (98-107) mmol/L Carbon Dioxide (21.0-32.0) mmol/L Anion Gap (5-15) mmol/L BUN (7-18) mg/dL Creatinine (0.51-1.17) mg/dL Est Cr Clr Drug Dosing mL/min Estimated GFR (MDRD) mL/min Glucose (70-140) mg/dL Calcium (8.7-10.3) mg/dL Magnesium 1.9 (1.8-2.4) mg/dL Total Bilirubin 0.3 (0.2-1.0) mg/dL Direct Bilirubin 0.2 (0.0-0.2) mg/dL Indirect Bilirubin 0.1 mg/dL AST 18 (15-37) U/L ALT 17 (14-63) U/L Alkaline Phosphatase 81 (46-116) U/L Troponin I < 0.017 (0.000-0.056) ng/mL Total Protein 5.7 L (6.4-8.2) g/dL Albumin 2.58 L (3.40-5.00) g/dL Globulin 3.12 Albumin/Globulin Ratio 0.82 Seamus Results Last 24 Hours: Microbiology 07/26/20 17:45 Urine Culture - Final Urine, Catheterized Med Orders - Current: Current Medications Acetaminophen (Acetaminophen 325 Mg Tab) 650 mg PO Q4H PRN PRN Reason: Pain Last Admin: 07/27/20 21:57 Dose: 650 mg Documented by: [facility]opurin[facility] ([facility] 100 Mg Tab) [facility] Last Admin: 07/28/20 09:57 Dose: Not Given Documented by: Ascorbic Acid (Ascorbic Acid 500 Mg Tab) 125 mg PO QAM [facility] Last Admin: 07/28/20 09:58 Dose: 125 mg Documented by: Bisacodyl (Bisacodyl 10 Mg Supp) 10 mg RECTAL DAILY PRN PRN Reason: Constipation Ceftriaxone Sodium (Ceftriaxone 1 Gm Vial) 1 gm IVPUSH Q24H [facility] Cyanocobalamin (Cyanocobalamin (Vitamin B12) 500 Mcg Tab) 1,000 mcg PO QAM [facility] Last Admin: 07/28/20 09:57 Dose: Not Given Documented by: Ferrous Sulfate (Ferrous Sulfate 325 Mg Tab) 325 mg PO BIDMEALS [facility] Last Admin: 07/28/20 07:21 Dose: 325 mg Documented by: Sodium Chloride (Normal Saline) 1,000 mls @ 150 mls/hr IV ASDIRECTED [facility] Last Admin: 07/28/20 02:34 Dose: 150 mls/hr Documented by: Loperamide HCl (Loperamide 2 Mg Cap) 2 mg PO ASDIRECTED PRN PRN Reason: Diarrhea Magnesium Chloride (Magnesium Chloride 64 Mg Tab.Er) 64 mg PO BID [facility] Last Admin: 07/28/20 09:56 Dose: Not Given Documented by: Megestrol Acetate (Megestrol Susp 40 Mg/Ml 10 Ml Ud Cup) 400 mg PO QAM [facility] Last Admin: 07/28/20 09:57 Dose: Not Given Documented by: Melatonin (Melatonin 3 Mg Tab) 3 mg PO BEDTIME [facility] Last Admin: 07/27/20 21:57 Dose: 3 mg Documented by: Metoprolol Tartrate (Metoprolol Tartrate 25 Mg Tab) 25 mg PO BID [facility] Last Admin: 07/28/20 09:56 Dose: Not Given Documented by: Nystatin (Nystatin Topical Powder 15 Gm Bottle) 0 gm TOP BID [facility] Last Admin: 07/27/20 21:33 Dose: Not Given Documented by: Omeprazole (Omeprazole 20 Mg Cap.Cr) 20 mg PO ACBREAKFAST [facility] Last Admin: 07/28/20 07:21 Dose: 20 mg Documented by: Ondansetron HCl (Ondansetron 4 Mg Tab.Dis) 8 mg PO Q8H PRN PRN Reason: Nausea Last Admin: 07/28/20 08:03 Dose: 8 mg Documented by: Polyethylene Glycol (Polyethylene Glycol 3350 Powder 17 Gm Packet) 17 gm PO DAILY PRN PRN Reason: Constipation Last Admin: 07/27/20 20:23 Dose: 17 gm Documented by: Potassium Chloride (Potassium Chloride 20 Meq Packet) 20 meq PO QAM [facility] Last Admin: 07/28/20 09:56 Dose: Not Given Documented by: Prochlorperazine Maleate (Prochlorperazine 5 Mg Tab) 10 mg PO Q6H PRN PRN Reason: Nausea Senna/Docusate Sodium (Docusate Sodium/Sennosides 50-8.6 Mg Tab) 1 tab PO BEDTIME [facility] Last Admin: 07/27/20 20:23 Dose: 1 tab Documented by: Senna/Docusate Sodium (Docusate Sodium/Sennosides 50-8.6 Mg Tab) 1 tab PO DAILY PRN PRN Reason: Constipation Simvastatin (Simvastatin 20 Mg Tab) 40 mg PO BEDTIME [facility] Last Admin: 07/27/20 20:23 Dose: 40 mg Documented by: Sodium Chloride (Sodium Chloride 1 Gm Tab) 1 gm PO BID [facility] Last Admin: 07/28/20 09:57 Dose: Not Given Documented by: Discontinued Medications Ceftriaxone Sodium (Ceftriaxone 1 Gm Vial) 1 gm IVPUSH ONETIME ONE Stop: 07/26/20 18:43 Last Admin: 07/26/20 18:59 Dose: 1 gm Documented by: Sodium Chloride (Normal Saline) 1,000 mls @ 999 mls/hr IV .BOLUS ONE Stop: 07/26/20 18:35 Last Admin: 07/26/20 18:10 Dose: 999 mls/hr Documented by: Sodium Chloride (Normal Saline) 1,000 mls @ 150 mls/hr IV ASDIRECTED [facility] Last Admin: 07/26/20 19:46 Dose: 150 mls/hr Documented by: Sodium Chloride (Normal Saline) 1,000 mls @ 100 mls/hr IV ASDIRECTED [facility] Last Infusion: 07/27/20 11:00 Dose: 150 mls/hr Documented by: Phytonadione (Phytonadione 10 Mg/1 Ml Amp) 5 mg PO ONETIME ONE Stop: 07/27/20 10:42 Last Admin: 07/27/20 11:33 Dose: 5 mg Documented by: Potassium Bicarbonate (Potassium Bicarbonate 25 Meq Tab.Eff) 25 meq PO ONETIME ONE Stop: 07/27/20 10:38 Last Admin: 07/27/20 11:33 Dose: 25 meq Documented by: Potassium Bicarbonate (Potassium Bicarbonate 25 Meq Tab.Eff) 25 meq PO ONETIME ONE Stop: 07/27/20 17:01 Last Admin: 07/27/20 17:49 Dose: 25 meq Documented by: Potassium Chloride (Potassium Chloride 20 Meq Packet) 40 meq PO ASDIRECTED KIT Potassium Chloride (Potassium Chloride 20 Meq Packet) Confirm Administered Dose 40 meq .ROUTE .STK-MED ONE Stop: 07/26/20 21:31 Last Admin: 07/26/20 22:52 Dose: Not Given Documented by: Potassium Chloride (Potassium Chloride 20 Meq Packet) 40 meq PO ONETIME ONE Stop: 07/26/20 22:26 Last Admin: 07/26/20 21:15 Dose: 40 meq Documented by: - Exam Quality Assessment: No: Supplemental Oxygen General: Alert, Oriented, Cooperative Neck: Supple, No JVD Lungs: Decreased Breath Sounds, Rhonchi Cardiovascular: Regular Rate, Irregular Rhythm GI/Abdominal Exam: Distended, Other (slightly high pitched Bowel tones left side). No: Rigid (Female) Exam: Deferred Back Exam: No: CVA Tenderness (R) Extremities: No Pedal Edema Peripheral Pulses: 2+: Radial (L), Radial (R) Neurological: Normal Speech, Normal Tone Psy/Mental Status: Labile Mood - Patient Data Lab Results Last 24 hrs: Laboratory Results - last 24 hr 07/27/20 07/27/20 07/28/20 Range/Units 09:45 16:00 07:10 WBC (5.00-10.00) 10^3/uL RBC (3.80-5.50) 10^6/uL Hgb (12.0-16.0) g/dL Hct (37.0-47.0) % MCV (82.0-92.0) fL MCH (27.0-31.0) pg MCHC (32.0-36.0) g/dL RDW (11.5-14.5) % Plt Count (150-400) 10^3/uL MPV (7.4-10.4) fL Add Manual Diff Neutrophils % (Manual) (50-70) % Band Neutrophils % (4-12) % Lymphocytes % (Manual) (20-40) % Monocytes % (Manual) (2-8) % Absolute Neutrophils Band Neutrophils # Lymphocytes # (Manual) Monocytes # (Manual) PT 191.9 H 37.5 H D (9.2-11.2) SEC INR 20.5 H* 3.8 H (0.9-1.1) Sodium 130 L (136-145) mmol/L Potassium 3.5 (3.5-5.1) mmol/L Chloride 97 L (98-107) mmol/L Carbon Dioxide 14.0 L (21.0-32.0) mmol/L Anion Gap 22.5 H (5-15) mmol/L BUN 88 H* (7-18) mg/dL Creatinine 2.29 H (0.51-1.17) mg/dL Est Cr Clr Drug Dosing 17.48 mL/min Estimated GFR (MDRD) 21 mL/min Glucose 172 H (70-140) mg/dL Calcium 9.5 (8.7-10.3) mg/dL Magnesium (1.8-2.4) mg/dL Total Bilirubin (0.2-1.0) mg/dL Direct Bilirubin (0.0-0.2) mg/dL Indirect Bilirubin mg/dL AST (15-37) U/L ALT (14-63) U/L Alkaline Phosphatase (46-116) U/L Troponin I (0.000-0.056) ng/mL Total Protein (6.4-8.2) g/dL Albumin (3.40-5.00) g/dL Globulin Albumin/Globulin Ratio 07/28/20 07/28/20 07/28/20 Range/Units 07:10 07:10 07:10 WBC 16.99 H (5.00-10.00) 10^3/uL RBC 3.38 L (3.80-5.50) 10^6/uL Hgb 10.9 L (12.0-16.0) g/dL Hct 32.2 L (37.0-47.0) % MCV 95.3 H (82.0-92.0) fL MCH 32.2 H (27.0-31.0) pg MCHC 33.9 (32.0-36.0) g/dL RDW 20.1 H (11.5-14.5) % Plt Count 351 (150-400) 10^3/uL MPV 9.5 (7.4-10.4) fL Add Manual Diff Yes Neutrophils % (Manual) 80 H (50-70) % Band Neutrophils % 7 (4-12) % Lymphocytes % (Manual) 9 L (20-40) % Monocytes % (Manual) 4 (2-8) % Absolute Neutrophils 13.59 Band Neutrophils # 1.19 Lymphocytes # (Manual) 1.53 Monocytes # (Manual) 0.68 PT 17.8 H D (9.2-11.2) SEC INR 1.8 H (0.9-1.1) Sodium (136-145) mmol/L Potassium (3.5-5.1) mmol/L Chloride (98-107) mmol/L Carbon Dioxide (21.0-32.0) mmol/L Anion Gap (5-15) mmol/L BUN (7-18) mg/dL Creatinine (0.51-1.17) mg/dL Est Cr Clr Drug Dosing mL/min Estimated GFR (MDRD) mL/min Glucose (70-140) mg/dL Calcium (8.7-10.3) mg/dL Magnesium 1.9 (1.8-2.4) mg/dL Total Bilirubin 0.3 (0.2-1.0) mg/dL Direct Bilirubin 0.2 (0.0-0.2) mg/dL Indirect Bilirubin 0.1 mg/dL AST 18 (15-37) U/L ALT 17 (14-63) U/L Alkaline Phosphatase 81 (46-116) U/L Troponin I < 0.017 (0.000-0.056) ng/mL Total Protein 5.7 L (6.4-8.2) g/dL Albumin 2.58 L (3.40-5.00) g/dL Globulin 3.12 Albumin/Globulin Ratio 0.82 Result Diagrams: 07/28/20 07:10 07/28/20 07:10 Seamus Results Last 24 hrs: Microbiology 07/26/20 17:45 Urine Culture - Final Urine, Catheterized Sepsis Event Note - Evaluation Sepsis Screening Result: Sepsis Risk - Focused Exam Vital Signs: Vital Signs Temp Pulse Resp BP Pulse Ox 07/28/20 06:26 98.2 F 99 18 93/43 L 97 07/28/20 02:35 96.7 F L 99 20 114/49 L 96 07/27/20 22:16 96.5 F L 95 18 111/41 L 97 - Problem List Review Problem List Initiated/Reviewed/Updated: Yes - My Orders Last 24 Hours: My Active Orders 07/27/20 10:45 Sodium Chloride 0.9% [Normal Saline] 1,000 ml IV ASDIRECTED 07/27/20 Dinner [employer] Diet [DIET] 07/28/20 09:30 Bladder Scan [RC] ONETIME 07/28/20 09:36 Urinary Catheter Assessment [RC] ASDIRECTED CULTURE BLOOD [BC] Stat CULTURE BLOOD [BC] Stat Blood Culture x2 Reflex Set [OM.PC] Stat 07/28/20 09:37 Patient Status [ADT] Routine 07/28/20 09:45 Mustafa Catheter Insertion [Insert Urinary Catheter] [OM.PC] Q24H 07/28/20 09:52 CULTURE URINE [RM] Routine UA W/MICROSCOPIC [URIN] Routine 07/28/20 10:00 cefTRIAXone [Rocephin] 1 gm IVPUSH Q24H - Plan Plan:: History of present illness Alona is a 80 y/o patient was admitted into OBS status due to decreased appetite, p.o. intake, dehydration weakness, possible UTI. Is a resident of [facility] in which she recently underwent inpatient antineoplastic chemotherapy due to liver cancer. It was treated with 3-day Bactrim course on 07/22 for UTI. ED course Chest x-ray, no pneumonia, edema or effusion. IV fluids bolus, Rocephin Covid negative Hospital course 07/27/2020; patient quite weak, felt large and, extremely dry, no edema, no JVD, repeat INR >20. No hematuria, no bleeding gums or petechiae, 5 mg p.o. vitamin K x1 now, monitor INR levels, may have to repeat vitamin K antagonist. 07/28/2020; nurses reported significant bile emesis early this morning, scant urine however incontinent with urine, patient did have abdominal pain this morning, no BM x3 days, afebrile however increasing WBCs, no fever, bladder scan showing 350 cc, Mustafa catheter placed for strict EMILY, significant cloudy sludgy urine noted. INR down to 1.8. Potassium improved. Abdominal flatplate this a.m., gas-filled moderate dilated small and large bowel loops, ileus versus distal colonic obstruction X-ray this a.m. increased bilateral edema and/or infiltrates Primary hospital problems --NURY, acute on chronic with hx of CKD, suspect cardiorenal component --Hypokalemia, improving --Hyponatremia, chronic, Continue sodium replacement, --UTI, cont Rocephin Chronic problems --Liver metastasis, dx 04/06/20; --Colon cancer --Atrial fib, chronic, CHA2 DS2 VASc 5, rate controlled with metoprol, HOLD warfarin/anticoagulation, --Essential hypertension, Metoprolol --Type 2 diabetes mellitus, A1c <6%, HOLD metformin --Chronic kidney disease, stage 3, GFR 60 --Vitamin B12 deficiency Disposition/overall plan --Change to inpatient status, due to clinical deterioration, ileus, for IV antibiotics, indwelling catheter, intake and output monitoring, --NPO, monitor the need for nasogastric decompression NG--report emesis --HOLD PO meds, however restart Coumadin, consult pharmacy for dosing/trending --Mustafa indwelling catheter due to strict I&O need --Replete potassium replacement despite lower normal levels now --Rocephin --Incentive spirometer Social Discussion with patient as she is refusing any further chemotherapy, in light of that family care conference/social security specialist consultation regarding patient's condition, prognosis, family on rounds tomorrow to discuss further options such as hospice, comfort cares.
[2020-07-28] MEDS ORDERED: Metoclopramide 10 MG/2 ML SDV IVPUSH ONE (10:31)
[2020-07-28] MEDS ORDERED: Metoprolol Tartrate 50 MG Tab PO ONE (12:34)
[2020-07-28] MEDS: Saliva Substitute Oral Spray 120 ML Bottle MUCMEM PRN ×2 (15:37→19:59)
[2020-07-28] MEDS ORDERED: Warfarin 2.5 MG Tab PO SCH (18:00)
[2020-07-28] MEDS ORDERED: Ondansetron 4 MG/2 ML SDV IVPUSH ONE (20:22)
[2020-07-28] MEDS: Simvastatin 20 MG Tab PO SCH (20:34)
[2020-07-28] MEDS: Melatonin 3 MG Tab PO SCH (20:34)
[2020-07-29] MEDS ORDERED: Furosemide 40 MG/4 ML VIAL IVPUSH ONE (02:58)
[2020-07-29] MEDS: Sodium Chloride 0.9% 1,000 ML IV SCH (03:02)
[2020-07-29 05:43] VITALS: BP 95/42; PULSE 137
[2020-07-29] MEDS: Morphine 2 MG/ML SYRINGE IVPUSH PRN ×3 (05:52→13:49)
[2020-07-29] MEDS ORDERED: LORazepam 2 MG/ML SDV IVPUSH PRN (06:41)
[2020-07-29] MEDS: Saliva Substitute Oral Spray 120 ML Bottle MUCMEM PRN ×2 (09:27→13:52)
[2020-07-29] MEDS: Nystatin Topical Powder 15 GM Bottle TOP SCH ×3 (09:27→20:19)
[2020-07-29] MEDS: Sodium Chloride 0.9% 10 ML Syringe FLUSH PRN ×2 (09:31→13:49)
--- NOTE | 2020-07-29 10:25 | PCM.PN ---
- General Info Date of Service: 07/29/20 Subjective Update: Patient opens eyes to verbal. Functional Status: Reports: Pain Controlled. Denies: Tolerating Diet - Review of Systems General: Denies: Fever Pulmonary: Denies: Shortness of Breath - Patient Data Vitals - Most Recent: Last Vital Signs Temp 98.4 F 07/29/20 05:20 Pulse 137 H 07/29/20 05:20 Resp 24 H 07/29/20 05:20 BP 95/42 L 07/29/20 05:20 Pulse Ox 90 L 07/29/20 05:20 Weight - Most Recent: 210 lb I&O - Last 24 Hours: Intake & Output 07/28/20 07/29/20 07/29/20 22:59 06:59 14:59 Intake Total 615 353 92 Output Total 100 75 Balance 515 278 92 Lab Results Last 24 Hours: Laboratory Results - last 24 hr 07/28/20 Range/Units 10:00 Specimen Type Urinfol Urine Color Dark yellow H (YELLOW) Urine Appearance Turbid H (CLEAR) Urine pH 5.5 (5.0-9.0) Ur Specific [place] 1.020 (1.005-1.030) Urine Protein 30 H (NEGATIVE) mg/dL Urine Glucose (UA) Negative (NEGATIVE) mg/dL Urine Ketones Negative (NEGATIVE) mg/dL Urine Occult Blood Moderate H (NEGATIVE) Urine Nitrite Negative (NEGATIVE) Urine Bilirubin Negative (NEGATIVE) Urine Urobilinogen 0.2 (0.2-1.0) E.U./dL Ur Leukocyte Esterase Large H (NEGATIVE) Urine RBC 0-5 (0-5) /HPF Urine WBC Packed (0-5) /HPF Urine Bacteria Rare (NONE TO FEW) /HPF [place] Results Last 24 Hours: Microbiology 07/26/20 17:45 Bacterial ID and Susceptibility - Preliminary Urine Escherichia Coli Med Orders - Current: Current Medications Acetaminophen (Acetaminophen 325 Mg Tab) 650 mg PO Q4H PRN PRN Reason: Pain Last Admin: 07/27/20 21:57 Dose: 650 mg Documented by: Atropine Sulfate (Atropine 1% Ophth Soln 5 Ml Bottle) 0 ml SL Q4H PRN PRN Reason: secretions Bisacodyl (Bisacodyl 10 Mg Supp) 10 mg RECTAL DAILY PRN PRN Reason: Constipation Ceftriaxone Sodium (Ceftriaxone 1 Gm Vial) 1 gm IVPUSH Q24H KIT Last Admin: 07/28/20 10:20 Dose: 1 gm Documented by: Lorazepam (Lorazepam 2 Mg/Ml Sdv) 1 mg IVPUSH Q2H PRN PRN Reason: Agitation Morphine Sulfate (Morphine 2 Mg/Ml Syringe) 2 mg IVPUSH Q1H PRN PRN Reason: Other Last Admin: 07/29/20 09:28 Dose: 2 mg Documented by: Nystatin (Nystatin Topical Powder 15 Gm Bottle) 0 gm TOP BID [facility] Last Admin: 07/29/20 09:27 Dose: 1 applic Documented by: Ondansetron HCl (Ondansetron 4 Mg Tab.Dis) 8 mg PO Q8H PRN PRN Reason: Nausea Last Admin: 07/28/20 18:39 Dose: 8 mg Documented by: Prochlorperazine Maleate (Prochlorperazine 5 Mg Tab) 10 mg PO Q6H PRN PRN Reason: Nausea Saliva Substitute (Saliva Substitute Oral Russell 120 Ml Bottle) 1 ml MUCMEM ASDIRECTED PRN PRN Reason: Other Last Admin: 07/29/20 09:27 Dose: 1 spray Documented by: Sodium Chloride (Sodium Chloride 0.9% 10 Ml Syringe) 10 ml FLUSH ASDIRECTED PRN PRN Reason: IV Use Last Admin: 07/29/20 09:31 Dose: 10 ml Documented by: Discontinued Medications Allopurinol (Allop[facility]ol 100 Mg Tab) [facility] Last Admin: 07/28/20 09:57 Dose: Not Given Documented by: Ascorbic Acid (Ascorbic Acid 500 Mg Tab) [facility] Last Admin: 07/28/20 09:58 Dose: 125 mg Documented by: Ceftriaxone Sodium (Ceftriaxone 1 Gm Vial) 1 gm IVPUSH ONETIME ONE Stop: 07/26/20 18:43 Last Admin: 07/26/20 18:59 Dose: 1 gm Documented by: Cyanocobalamin (Cyanocobalamin (Vitamin B12) 500 Mcg Tab) 1,000 mcg PO QAM [facility] Last Admin: 07/28/20 09:57 Dose: Not Given Documented by: Ferrous Sulfate (Ferrous Sulfate 325 Mg Tab) 325 mg PO BIDMEALS [facility] Last Admin: 07/28/20 18:32 Dose: 325 mg Documented by: Furosemide (Furosemide 40 Mg/4 Ml Vial) 40 mg IVPUSH NOW ONE Stop: 07/28/20 10:19 Last Admin: 07/28/20 10:32 Dose: 40 mg Documented by: Furosemide (Furosemide 40 Mg/4 Ml Vial) 20 mg IVPUSH ONETIME ONE Stop: 07/28/20 18:01 Last Admin: 07/28/20 18:32 Dose: 20 mg Documented by: Furosemide (Furosemide 40 Mg/4 Ml Vial) 20 mg IVPUSH NOW ONE Stop: 07/29/20 02:59 Last Admin: 07/29/20 03:09 Dose: 20 mg Documented by: Sodium Chloride (Normal Saline) 1,000 mls @ 999 mls/hr IV .BOLUS ONE Stop: 07/26/20 18:35 Last Admin: 07/26/20 18:10 Dose: 999 mls/hr Documented by: Sodium Chloride (Normal Saline) 1,000 mls @ 150 mls/hr IV ASDIRECTED [facility] Last Admin: 07/26/20 19:46 Dose: 150 mls/hr Documented by: Sodium Chloride (Normal Saline) 1,000 mls @ 100 mls/hr IV ASDIRECTED [facility] Last Infusion: 07/27/20 11:00 Dose: 150 mls/hr Documented by: Sodium Chloride (Normal Saline) 1,000 mls @ 50 mls/hr IV ASDIRECTED [facility] Last Admin: 07/29/20 03:02 Dose: 50 mls/hr Documented by: Potassium Chloride 20 meq/ (Premix) 100 mls @ 50 mls/hr IV ONETIME ONE Stop: 07/28/20 12:19 Last Admin: 07/28/20 10:34 Dose: 50 mls/hr Documented by: Potassium Chloride 20 meq/ (Premix) 100 mls @ 50 mls/hr IV ONETIME ONE Stop: 07/28/20 18:59 Last Admin: 07/28/20 16:08 Dose: 50 mls/hr Documented by: Loperamide HCl (Loperamide 2 Mg Cap) 2 mg PO ASDIRECTED PRN PRN Reason: Diarrhea Magnesium Chloride (Magnesium Chloride 64 Mg Tab.Er) 64 mg PO BID [facility] Last Admin: 07/28/20 20:33 Dose: Not Given Documented by: Megestrol Acetate (Megestrol Susp 40 Mg/Ml 10 Ml Ud Cup) 400 [facility] Last Admin: 07/28/20 09:57 Dose: Not Given Documented by: Melatonin (Melatonin 3 Mg Tab) 3 mg PO BEDTIME [facility] Last Admin: 07/28/20 20:34 Dose: Not Given Documented by: Metoclopramide HCl (Metoclopramide 10 Mg/2 Ml Sdv) 5 mg IVPUSH ONETIME ONE Stop: 07/28/20 10:32 Last Admin: 07/28/20 10:57 Dose: 5 mg Documented by: Metoprolol Tartrate (Metoprolol Tartrate 25 Mg Tab) 25 mg PO BID [facility] Last Admin: 07/28/20 20:33 Dose: Not Given Documented by: Metoprolol Tartrate (Metoprolol Tartrate 50 Mg Tab) 50 mg PO ONETIME ONE Stop: 07/28/20 12:35 Last Admin: 07/28/20 12:42 Dose: 50 mg Documented by: Omeprazole (Omeprazole 20 Mg Cap.Cr) 20 mg PO ACBREAKFAST [facility] Last Admin: 07/28/20 07:21 Dose: 20 mg Documented by: Ondansetron HCl (Ondansetron 4 Mg/2 Ml Sdv) 4 mg IVPUSH ONETIME ONE Stop: 07/28/20 20:23 Last Admin: 07/28/20 20:30 Dose: 4 mg Documented by: Phytonadione (Phytonadione 10 Mg/1 Ml Amp) 5 mg PO ONETIME ONE Stop: 07/27/20 10:42 Last Admin: 07/27/20 11:33 Dose: 5 mg Documented by: Polyethylene Glycol (Polyethylene Glycol 3350 Powder 17 Gm Packet) 17 gm PO DAILY PRN PRN Reason: Constipation Last Admin: 07/27/20 20:23 Dose: 17 gm Documented by: Potassium Bicarbonate (Potassium Bicarbonate 25 Meq Tab.Eff) 25 meq PO ONETIME ONE Stop: 07/27/20 10:38 Last Admin: 07/27/20 11:33 Dose: 25 meq Documented by: Potassium Bicarbonate (Potassium Bicarbonate 25 Meq Tab.Eff) 25 meq PO ONETIME ONE Stop: 07/27/20 17:01 Last Admin: 07/27/20 17:49 Dose: 25 meq Documented by: Potassium Chloride (Potassium Chloride 20 Meq Packet) 20 meq PO QAM [facility] Last Admin: 07/28/20 09:56 Dose: Not Given Documented by: Potassium Chloride (Potassium Chloride 20 Meq Packet) 40 meq PO ASDIRECTED [facility] Potassium Chloride (Potassium Chloride 20 Meq Packet) Confirm Administered Dose 40 meq .ROUTE .STK-MED ONE Stop: 07/26/20 21:31 Last Admin: 07/26/20 22:52 Dose: Not Given Documented by: Potassium Chloride (Potassium Chloride 20 Meq Packet) 40 meq PO ONETIME ONE Stop: 07/26/20 22:26 Last Admin: 07/26/20 21:15 Dose: 40 meq Documented by: Senna/Docusate Sodium (Docusate Sodium/Sennosides 50-8.6 Mg Tab) 1 tab PO BEDTIME [facility] Last Admin: 07/28/20 20:34 Dose: Not Given Documented by: Senna/Docusate Sodium (Docusate Sodium/Sennosides 50-8.6 Mg Tab) 1 tab PO DAILY PRN PRN Reason: Constipation Simvastatin (Simvastatin 20 Mg Tab) 40 mg PO BEDTIME [facility] Last Admin: 07/28/20 20:34 Dose: Not Given Documented by: Sodium Chloride (Sodium Chloride 1 Gm Tab) 1 gm PO BID [facility] Last Admin: 07/28/20 20:34 Dose: Not Given Documented by: Warfarin Sodium (Pharmacy To Dose - Warfarin) 1 dose .XX ASDIRECTED [facility] Warfarin Sodium (Warfarin 2.5 Mg Tab) 2.5 mg PO 1800 [facility] Last Admin: 07/28/20 18:32 Dose: 2.5 mg Documented by: - Exam Quality Assessment: No: Supplemental Oxygen General: No Acute Distress, Lethargic. No: Alert, Oriented, Cooperative Lungs: Crackles Cardiovascular: Irregular Rhythm, Tachycardia GI/Abdominal Exam: Distended, Hepatomegaly, Other (high pitched bowel tones) Extremities: Pedal Edema Peripheral Pulses: 3+: Radial (L), Radial (R) Skin: Rash Neurological: Normal Tone Psy/Mental Status: No: Alert - Patient Data Lab Results Last 24 hrs: Laboratory Results - last 24 hr 07/28/20 Range/Units 10:00 Specimen Type Urinfol Urine Color Dark yellow H (YELLOW) Urine Appearance Turbid H (CLEAR) Urine pH 5.5 (5.0-9.0) Ur Specific [place] 1.020 (1.005-1.030) Urine Protein 30 H (NEGATIVE) mg/dL Urine Glucose (UA) Negative (NEGATIVE) mg/dL Urine Ketones Negative (NEGATIVE) mg/dL Urine Occult Blood Moderate H (NEGATIVE) Urine Nitrite Negative (NEGATIVE) Urine Bilirubin Negative (NEGATIVE) Urine Urobilinogen 0.2 (0.2-1.0) E.U./dL Ur Leukocyte Esterase Large H (NEGATIVE) Urine RBC 0-5 (0-5) /HPF Urine WBC Packed (0-5) /HPF Urine Bacteria Rare (NONE TO FEW) /HPF Result Diagrams: 07/28/20 07:10 07/28/20 07:10 [place] Results Last 24 hrs: Microbiology 07/26/20 17:45 Bacterial ID and Susceptibility - Preliminary Urine Escherichia Coli Sepsis Event Note - Evaluation Sepsis Screening Result: Severe Sepsis Risk - Focused Exam Vital Signs: Vital Signs Temp Pulse Resp BP Pulse Ox 07/29/20 05:20 98.4 F 137 H 24 H 95/42 L 90 L 07/29/20 02:45 97.5 F 131 H 22 H 110/45 L 91 L - Problem List Review Problem List Initiated/Reviewed/Updated: Yes - My Orders Last 24 Hours: My Active Orders 07/28/20 09:36 Urinary Catheter Assessment [RC] Blood Culture x2 Reflex Set [OM.PC] Stat 07/28/20 09:37 Patient Status [ADT] Routine 07/28/20 09:45 [place] Catheter Insertion [Insert Urinary Catheter] [OM.PC] Q24H 07/28/20 10:00 CULTURE BLOOD [BC] Stat CULTURE URINE [MREF] Routine cefTRIAXone [Rocephin] 1 gm IVPUSH Q24H 07/28/20 10:20 CULTURE BLOOD [BC] Stat 07/28/20 Lunch NPO [Nothing Per Oral Diet] [DIET] 07/28/20 15:25 Carboxymethylcellulose/Lytes [Andrea-Stir Oral Russell] 1 ml MUCMEM ASDIRECTED PRN 07/29/20 02:15 Communication Order [RC] 07/29/20 09:28 Sodium Chloride 0.9% [Saline Flush] 10 ml FLUSH ASDIRECTED PRN - Plan Plan:: History of present illness Alona is a 80 y/o patient was admitted into OBS status due to decreased appetite, p.o. intake, dehydration weakness, possible UTI. Is a resident of [facility] in which she recently underwent inpatient antineoplastic chemotherapy due to liver cancer. ED course Chest x-ray, no pneumonia, edema or effusion. IV fluids bolus, Rocephin Covid negative 07/28/2020; nurses reported significant bile emesis early this morning, scant urine however incontinent with urine, patient did have abdominal pain this morning, no BM x3 days, afebrile however increasing WBCs, no fever, bladder scan showing 350 cc, Mustafa catheter placed for strict EMILY, significant cloudy sludgy urine noted. INR down to 1.8. Potassium improved. Abdominal flatplate this a.m., gas-filled moderate dilated small and large bowel loops, ileus versus distal colonic obstruction X-ray this a.m. increased bilateral edema and/or infiltrates 07/29/2020; patient with significant clinical deterioration due to renal failure, cardiorenal syndrome, SBO. was made a DO NOT RESUSCITATE on comfort care as patient declined all further chemotherapy and patient's family desired hospice care/comfort care. Primary hospital problems --NURY, acute on chronic with hx of CKD, cardiorenal component Chronic problems --Liver metastasis, dx 04/06/20; --Colon cancer --Atrial fib, chronic, CHA2 DS2 VASc 5, rate controlled with metoprol, HOLD warfarin/anticoagulation, --Essential hypertension, --Type 2 diabetes mellitus, A1c <6%, HOLD metformin --Vitamin B12 deficiency Disposition/overall plan --Comfort/dignity cares --Cont with indwelling catheter --Discontinue IV abx,
[2020-07-29] MEDS: cefTRIAXone 1 GM Vial IVPUSH SCH (10:52)
[2020-07-29] MEDS: Atropine 1% Ophth Soln 5 ML BOTTLE SL PRN ×2 (16:43→21:11)
[2020-07-30] MEDS: Atropine 1% Ophth Soln 5 ML BOTTLE SL PRN ×2 (01:23→05:55)
[2020-07-30] MEDS: Nystatin Topical Powder 15 GM Bottle TOP SCH (09:06)
--- NOTE | 2020-07-30 09:59 | PCM.PN ---
- General Info Date of Service: 07/30/20 Subjective Update: Patient obtunded, unresponsive Functional Status: Reports: Pain Controlled - Patient Data Vitals - Most Recent: Last Vital Signs Temp 98.4 F 07/29/20 05:20 Pulse 137 H 07/29/20 05:20 Resp 24 H 07/29/20 05:20 BP 95/42 L 07/29/20 05:20 Pulse Ox 90 L 07/29/20 05:20 Weight - Most Recent: 210 lb I&O - Last 24 Hours: Intake & Output 07/29/20 07/30/20 07/30/20 22:59 06:59 14:59 Intake Total 0 0 Output Total 20 5 Balance -20 -5 [place] Results Last 24 Hours: Microbiology 07/26/20 17:45 Bacterial ID and Susceptibility - Final Urine Escherichia Coli 07/28/20 10:20 Aerobic Blood Culture - Preliminary Blood - Venous - Lab Draw NO GROWTH AFTER 1 DAY Anaerobic Blood Culture - Preliminary NO GROWTH AFTER 1 DAY 07/28/20 10:00 Aerobic Blood Culture - Preliminary Blood - Arm, Left NO GROWTH AFTER 1 DAY Anaerobic Blood Culture - Preliminary NO GROWTH AFTER 1 DAY Med Orders - Current: Current Medications Atropine Sulfate (Atropine 1% Ophth Soln 5 Ml Bottle) 0 ml SL Q4H PRN PRN Reason: secretions Last Admin: 07/30/20 05:55 Dose: 5 ml Documented by: Lorazepam (Lorazepam 2 Mg/Ml Sdv) 1 mg IVPUSH Q2H PRN PRN Reason: Agitation Morphine Sulfate (Morphine 2 Mg/Ml Syringe) 2 mg IVPUSH Q1H PRN PRN Reason: Other Last Admin: 07/29/20 13:49 Dose: 2 mg Documented by: Nystatin (Nystatin Topical Powder 15 Gm Bottle) 0 gm TOP BID [facility] Last Admin: 07/30/20 09:06 Dose: 1 applic Documented by: Ondansetron HCl (Ondansetron 4 Mg Tab.Dis) 8 mg PO Q8H PRN PRN Reason: Nausea Last Admin: 07/28/20 18:39 Dose: 8 mg Documented by: Saliva Substitute (Saliva Substitute Oral [place] 120 Ml Bottle) 1 ml MUCMEM ASDIRECTED PRN PRN Reason: Other Last Admin: 07/29/20 13:52 Dose: 1 spray Documented by: Sodium Chloride (Sodium Chloride 0.9% 10 Ml Syringe) 10 ml FLUSH ASDIRECTED PRN PRN Reason: IV Use Last Admin: 07/29/20 13:49 Dose: 10 ml Documented by: Discontinued Medications Acetaminophen (Acetaminophen 325 Mg Tab) 650 mg PO Q4H PRN PRN Reason: Pain Last Admin: 07/27/20 21:57 Dose: 650 mg Documented by: Allopurinol (Allopurinol 100 Mg Tab) 200 mg PO [facility] Last Admin: 07/28/20 09:57 Dose: Not Given Documented by: Ascorbic Acid (Ascorbic Acid 500 Mg Tab) 125 mg PO [facility] Last Admin: 07/28/20 09:58 Dose: 125 mg Documented by: Bisacodyl (Bisacodyl 10 Mg Supp) 10 mg RECTAL DAILY PRN PRN Reason: Constipation Ceftriaxone Sodium (Ceftriaxone 1 Gm Vial) 1 gm IVPUSH ONETIME ONE Stop: 07/26/20 18:43 Last Admin: 07/26/20 18:59 Dose: 1 gm Documented by: Ceftriaxone Sodium (Ceftriaxone 1 Gm Vial) 1 gm IVPUSH Q24H [facility] Last Admin: 07/29/20 10:52 Dose: Not Given Documented by: Cyanocobalamin (Cyanocobalamin (Vitamin B12) 500 Mcg Tab) 1,000 mcg PO [facility] Last Admin: 07/28/20 09:57 Dose: Not Given Documented by: Ferrous Sulfate (Ferrous Sulfate 325 Mg Tab) 325 mg PO BIDMEALS [facility] Last Admin: 07/28/20 18:32 Dose: 325 mg Documented by: Furosemide (Furosemide 40 Mg/4 Ml Vial) 40 mg IVPUSH NOW ONE Stop: 07/28/20 10:19 Last Admin: 07/28/20 10:32 Dose: 40 mg Documented by: Furosemide (Furosemide 40 Mg/4 Ml Vial) 20 mg IVPUSH ONETIME ONE Stop: 07/28/20 18:01 Last Admin: 07/28/20 18:32 Dose: 20 mg Documented by: Furosemide (Furosemide 40 Mg/4 Ml Vial) 20 mg IVPUSH NOW ONE Stop: 07/29/20 02:59 Last Admin: 07/29/20 03:09 Dose: 20 mg Documented by: Sodium Chloride (Normal Saline) 1,000 mls @ 999 mls/hr IV .BOLUS ONE Stop: 07/26/20 18:35 Last Admin: 07/26/20 18:10 Dose: 999 mls/hr Documented by: Sodium Chloride (Normal Saline) 1,000 mls @ 150 mls/hr IV ASDIRECTED [facility] Last Admin: 07/26/20 19:46 Dose: 150 mls/hr Documented by: Sodium Chloride (Normal Saline) 1,000 mls @ 100 mls/hr IV ASDIRECTED [facility] Last Infusion: 07/27/20 11:00 Dose: 150 mls/hr Documented by: Sodium Chloride (Normal Saline) 1,000 mls @ 50 mls/hr IV ASDIRECTED [facility] Last Admin: 07/29/20 03:02 Dose: 50 mls/hr Documented by: Potassium Chloride 20 meq/ (Premix) 100 mls @ 50 mls/hr IV ONETIME ONE Stop: 07/28/20 12:19 Last Admin: 07/28/20 10:34 Dose: 50 mls/hr Documented by: Potassium Chloride 20 meq/ (Premix) 100 mls @ 50 mls/hr IV ONETIME ONE Stop: 07/28/20 18:59 Last Admin: 07/28/20 16:08 Dose: 50 mls/hr Documented by: Loperamide HCl (Loperamide 2 Mg Cap) 2 mg PO ASDIRECTED PRN PRN Reason: Diarrhea Magnesium Chloride (Magnesium Chloride 64 Mg Tab.Er) 64 mg PO BID [facility] Last Admin: 07/28/20 20:33 Dose: Not Given Documented by: Megestrol Acetate (Megestrol Susp 40 Mg/Ml 10 Ml Ud Cup) 400 mg PO QAM [facility] Last Admin: 07/28/20 09:57 Dose: Not Given Documented by: Melatonin (Melatonin 3 Mg Tab) 3 mg PO BEDTIME [facility] Last Admin: 07/28/20 20:34 Dose: Not Given Documented by: Metoclopramide HCl (Metoclopramide 10 Mg/2 Ml Sdv) 5 mg IVPUSH ONETIME ONE Stop: 07/28/20 10:32 Last Admin: 07/28/20 10:57 Dose: 5 mg Documented by: Metoprolol Tartrate (Metoprolol Tartrate 25 Mg Tab) 25 mg PO BID [facility] Last Admin: 07/28/20 20:33 Dose: Not Given Documented by: Metoprolol Tartrate (Metoprolol Tartrate 50 Mg Tab) 50 mg PO ONETIME ONE Stop: 07/28/20 12:35 Last Admin: 07/28/20 12:42 Dose: 50 mg Documented by: Omeprazole (Omeprazole 20 Mg Cap.Cr) 20 mg PO ACBREAKFAST [facility] Last Admin: 07/28/20 07:21 Dose: 20 mg Documented by: Ondansetron HCl (Ondansetron 4 Mg/2 Ml Sdv) 4 mg IVPUSH ONETIME ONE Stop: 07/28/20 20:23 Last Admin: 07/28/20 20:30 Dose: 4 mg Documented by: Phytonadione (Phytonadione 10 Mg/1 Ml Amp) 5 mg PO ONETIME ONE Stop: 07/27/20 10:42 Last Admin: 07/27/20 11:33 Dose: 5 mg Documented by: Polyethylene Glycol (Polyethylene Glycol 3350 Powder 17 Gm Packet) 17 gm PO DAILY PRN PRN Reason: Constipation Last Admin: 07/27/20 20:23 Dose: 17 gm Documented by: Potassium Bicarbonate (Potassium Bicarbonate 25 Meq Tab.Eff) 25 meq PO ONETIME ONE Stop: 07/27/20 10:38 Last Admin: 07/27/20 11:33 Dose: 25 meq Documented by: Potassium Bicarbonate (Potassium Bicarbonate 25 Meq Tab.Eff) 25 meq PO ONETIME ONE Stop: 07/27/20 17:01 Last Admin: 07/27/20 17:49 Dose: 25 meq Documented by: Potassium Chloride (Potassium Chloride 20 Meq Packet) 20 meq PO QAM [facility] Last Admin: 07/28/20 09:56 Dose: Not Given Documented by: Potassium Chloride (Potassium Chloride 20 Meq Packet) 40 meq PO ASDIRECTED [facility] Potassium Chloride (Potassium Chloride 20 Meq Packet) Confirm Administered Dose 40 meq .ROUTE .STK-MED ONE Stop: 07/26/20 21:31 Last Admin: 07/26/20 22:52 Dose: Not Given Documented by: Potassium Chloride (Potassium Chloride 20 Meq Packet) 40 meq PO ONETIME ONE Stop: 07/26/20 22:26 Last Admin: 07/26/20 21:15 Dose: 40 meq Documented by: Prochlorperazine Maleate (Prochlorperazine 5 Mg Tab) 10 mg PO Q6H PRN PRN Reason: Nausea Senna/Docusate Sodium (Docusate Sodium/Sennosides 50-8.6 Mg Tab) 1 tab PO BEDTIME [facility] Last Admin: 07/28/20 20:34 Dose: Not Given Documented by: Senna/Docusate Sodium (Docusate Sodium/Sennosides 50-8.6 Mg Tab) 1 tab PO DAILY PRN PRN Reason: Constipation Simvastatin (Simvastatin 20 Mg Tab) 40 mg PO BEDTIME [facility] Last Admin: 07/28/20 20:34 Dose: Not Given Documented by: Sodium Chloride (Sodium Chloride 1 Gm Tab) 1 gm PO BID [facility] Last Admin: 07/28/20 20:34 Dose: Not Given Documented by: Warfarin Sodium (Pharmacy To Dose - Warfarin) 1 dose .XX ASDIRECTED [facility] Warfarin Sodium (Warfarin 2.5 Mg Tab) 2.5 mg PO 1800 [facility] Last Admin: 07/28/20 18:32 Dose: 2.5 mg Documented by: - Exam Quality Assessment: No: Supplemental Oxygen General: No Acute Distress. No: Alert, Oriented Lungs: Rhonchi Cardiovascular: Irregular Rhythm, Tachycardia Skin: Other (Patient mottling from feet up to chest) Psy/Mental Status: No: Alert - Patient Data Result Diagrams: 07/28/20 07:10 07/28/20 07:10 [place] Results Last 24 hrs: Microbiology 07/26/20 17:45 Bacterial ID and Susceptibility - Final Urine Escherichia Coli 07/28/20 10:20 Aerobic Blood Culture - Preliminary Blood - Venous - Lab Draw NO GROWTH AFTER 1 DAY Anaerobic Blood Culture - Preliminary NO GROWTH AFTER 1 DAY 07/28/20 10:00 Aerobic Blood Culture - Preliminary Blood - Arm, Left NO GROWTH AFTER 1 DAY Anaerobic Blood Culture - Preliminary NO GROWTH AFTER 1 DAY Sepsis Event Note - Evaluation Sepsis Screening Result: Severe Sepsis Risk - Problem List Review Problem List Initiated/Reviewed/Updated: Yes - My Orders Last 24 Hours: My Active Orders 07/29/20 09:28 Sodium Chloride 0.9% [Saline Flush] 10 ml FLUSH ASDIRECTED PRN - Plan Plan:: History of present illness Alona is a 80 y/o patient was admitted into OBS status due to decreased appetite, p.o. intake, dehydration weakness, possible UTI. Is a resident of [facility] in which she recently underwent inpatient antineoplastic chemotherapy due to liver cancer. ED course Chest x-ray, no pneumonia, edema or effusion. IV fluids bolus, Rocephin Covid negative 07/28/2020; nurses reported significant bile emesis early this morning, scant urine however incontinent with urine, patient did have abdominal pain this morning, no BM x3 days, afebrile however increasing WBCs, no fever, bladder scan showing 350 cc, Mustafa catheter placed for strict EMILY, significant cloudy sludgy urine noted. INR down to 1.8. Potassium improved. Abdominal flatplate this a.m., gas-filled moderate dilated small and large bowel loops, ileus versus distal colonic obstruction X-ray this a.m. increased bilateral edema and/or infiltrates 07/29/2020; patient with significant clinical deterioration due to renal failure, cardiorenal syndrome, SBO. was made a DO NOT RESUSCITATE on comfort care as patient declined all further chemotherapy and patient's family desired hospice care/comfort care. 07/30/2020; patient appears comfortable, mottling from feet to upper chest, regu lar breathing, no urinary output, appears comfortable, she and spouse who has Alzheimer's was able to visit patient yesterday. Primary hospital problems --SBO --NURY, acute on chronic with hx of CKD, cardiorenal component --Liver metastasis, dx 04/06/20; --Colon cancer --Atrial fib, chronic, CHA2 DS2 VASc 5, holding all by mouth medications. --Essential hypertension, --Type 2 diabetes mellitus, --Vitamin B12 deficiency Disposition/overall plan --Due to the patient's grave status doubtful she will survive a transfer back to long-term care for palliative care. She will require continue IV morphine and anxiolytics for comfort cares. --Spoke in length with her brother Charly, gave him patient updates and status, he agrees with comfort measures, expectant mgt plan.
--- NOTE | 2020-08-08 12:06 | PCM.DCSUM1 ---
Discharge Summary - Hospital Course Diagnosis: Stroke: No - Discharge Data Discharge Date: 07/30/20 Discharge Disposition: 20 Condition: - Referral to Home Health Primary Care Physician: James Rizvi NP - Discharge Plan Home Medications: Home Meds Omeprazole 20 mg PO QAM 01/02/17 [History] Simvastatin [Zocor] 40 mg PO BEDTIME 01/02/17 [History] metOLazone [Metolazone] 1.25 mg PO ASDIRECTED 01/02/17 [History] Calcium Carbonate/Vitamin D3 [Calcium 600-Vit D3 500 Softgel] 1 tab PO QAM 03/08/18 [History] Cyanocobalamin (Vitamin B-12) [B-12] 1,000 mcg PO QAM 03/08/18 [History] allopurinoL [Zyloprim] 200 mg PO QAM 03/08/18 [History] metFORMIN [Glucophage XR] 500 mg PO QAM 02/14/20 [History] Ferrous Sulfate [Ferosul] 325 mg PO BID 03/29/20 [History] Acetaminophen [Tylenol] 650 mg PO Q4H PRN 06/02/20 [History] Carboxymethylcellulose Sodium [Artificial Tears] 1.4 ml OP Q2HR PRN 06/02/20 [History] Magnesium Chloride [Slow-Mag] 1 tab PO BID 06/02/20 [History] Metoprolol Tartrate 25 mg PO BID 06/02/20 [History] Ondansetron [Zofran ODT] 8 mg PO Q8HR PRN 06/02/20 [History] Prochlorperazine Maleate [Compazine] 10 mg PO Q6HR PRN 06/02/20 [History] Ascorbic Acid [Vitamin C] 125 mg PO QAM 07/13/20 [History] Bumetanide 2 mg PO QAM 07/13/20 [History] Loperamide HCl [Imodium A-D] 2 mg PO ASDIRECTED 07/13/20 [History] Megestrol [Megace 40 MG/ML Susp] 10 ml PO QAM 07/13/20 [History] Melatonin 3 mg PO BEDTIME 07/13/20 [History] Multivitamin 1 each PO QAM 07/13/20 [History] Nystatin 1 gm TP BID 07/13/20 [History] Potassium Chloride [Klor-Con] 20 meq PO QAM 07/13/20 [History] Sennosides/Docusate Sodium [Senna Plus 8.6-50 mg Tablet] 1 tab PO DAILY PRN 07/13/20 [History] Sennosides/Docusate Sodium [Senna-S 8.6-50 mg Tablet] 1 tab PO BEDTIME 07/13/20 [History] Sodium Chloride 1 gm PO BID 07/13/20 [History] Warfarin [Coumadin] 2.5 mg PO ASDIRECTED 07/13/20 [History] bisacodyL [Dulcolax] 10 mg RC DAILY PRN 07/13/20 [History] polyethylene glycoL 3350 [MiraLAX] 17 gm PO DAILY PRN 07/13/20 [History] Forms: ED Department Discharge Referrals: [facility] [Outside] James Rizvi NP [Primary Care Provider] - - Discharge Summary/Plan Comment DC Time >30 min.: No Discharge Summary/Plan Comment: Final diagnosis upon --Small bowel obstruction --Renal failure, anuria --Cardiorenal syndrome --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 intake, dehydration weakness, possible UTI. She was a resident of LTC in which she recently underwent inpatient antineoplastic chemotherapy due to liver/cancer ED course Chest x-ray, no pneumonia, edema or effusion. IV fluids bolus, Rocephin Covid negative Hospital course 07/28/2020; nurses reported significant bile emesis early this morning, scant urine however incontinent with urine, patient did have abdominal pain this morning, no BM x3 days, afebrile however increasing WBCs, no fever, bladder scan showing 350 cc, Mustafa catheter placed for strict EMILY, significant cloudy sludgy urine noted. INR down to 1.8. Potassium improved. Abdominal flatplate this a.m., gas-filled moderate dilated small and large bowel loops, ileus versus distal colonic obstruction X-ray this a.m. increased bilateral edema and/or infiltrates 07/29/2020; patient with significant clinical deterioration due to renal failure, cardiorenal syndrome, SBO. was made a DO NOT RESUSCITATE on comfort care as patient declined all further chemotherapy and patient's family desired hospice care/comfort care. 07/30/2020; the morning of her Alona appeared comfortable, she was mottling from feet to upper chest, her breathing was regular, she had no urinary output, she appeared very comfortable. The day before her spouse who has late- stage Alzheimer's was able to visit. Later that afternoon I was notified by the nursing staff that the patient had peacefully. Body was released to the appropriate morgue facility with dignity. Review of system and physical exam components, see progress note same date of - General Info Date of Service: 07/30/20 Subjective Update: See physical exam and ROS components in progress note this date - Patient Data Vitals - Most Recent: Last Vital Signs Temp 98.4 F 07/29/20 05:20 Pulse 137 H 07/29/20 05:20 Resp 24 H 07/29/20 05:20 BP 95/42 L 07/29/20 05:20 Pulse Ox 90 L 07/29/20 05:20 Weight - Most Recent: 210 lb Med Orders - Current: Current Medications Discontinued Medications Acetaminophen (Acetaminophen 325 Mg Tab) 650 mg PO Q4H PRN PRN Reason: Pain Last Admin: 07/27/20 21:57 Dose: 650 mg Documented by: Allopurinol (Allopurinol 100 Mg Tab) [facility] [place] Last Admin: 07/28/20 09:57 Dose: Not Given Documented by: Ascorbic Acid (Ascorbic Acid 500 Mg Tab) 125 mg PO QAM [facility] Last Admin: 07/28/20 09:58 Dose: 125 mg Documented by: Atropine Sulfate (Atropine 1% Ophth Soln 5 Ml Bottle) 0 ml SL Q4H PRN PRN Reason: secretions Last Admin: 07/30/20 05:55 Dose: 5 ml Documented by: Bisacodyl (Bisacodyl 10 Mg Supp) 10 mg RECTAL DAILY PRN PRN Reason: Constipation Ceftriaxone Sodium (Ceftriaxone 1 Gm Vial) 1 gm IVPUSH ONETIME ONE Stop: 07/26/20 18:43 Last Admin: 07/26/20 18:59 Dose: 1 gm Documented by: Ceftriaxone Sodium (Ceftriaxone 1 Gm Vial) 1 gm IVPUSH Q24H [facility] Last Admin: 07/29/20 10:52 Dose: Not Given Documented by: Cyanocobalamin (Cyanocobalamin (Vitamin B12) 500 Mcg Tab) 1,000 mcg PO QAM [facility] Last Admin: 07/28/20 09:57 Dose: Not Given Documented by: Ferrous Sulfate (Ferrous Sulfate 325 Mg Tab) 325 mg PO BIDMEALS [facility] Last Admin: 07/28/20 18:32 Dose: 325 mg Documented by: Furosemide (Furosemide 40 Mg/4 Ml Vial) 40 mg IVPUSH NOW ONE Stop: 07/28/20 10:19 Last Admin: 07/28/20 10:32 Dose: 40 mg Documented by: Furosemide (Furosemide 40 Mg/4 Ml Vial) 20 mg IVPUSH ONETIME ONE Stop: 07/28/20 18:01 Last Admin: 07/28/20 18:32 Dose: 20 mg Documented by: Furosemide (Furosemide 40 Mg/4 Ml Vial) 20 mg IVPUSH NOW ONE Stop: 07/29/20 02:59 Last Admin: 07/29/20 03:09 Dose: 20 mg Documented by: Sodium Chloride (Normal Saline) 1,000 mls @ 999 mls/hr IV .BOLUS ONE Stop: 07/26/20 18:35 Last Admin: 07/26/20 18:10 Dose: 999 mls/hr Documented by: Sodium Chloride (Normal Saline) 1,000 mls @ 150 mls/hr IV ASDIRECTED [facility] Last Admin: 07/26/20 19:46 Dose: 150 mls/hr Documented by: Sodium Chloride (Normal Saline) 1,000 mls @ 100 mls/hr IV ASDIRECTED [facility] Last Infusion: 07/27/20 11:00 Dose: 150 mls/hr Documented by: Sodium Chloride (Normal Saline) 1,000 mls @ 50 mls/hr IV ASDIRECTED [facility] Last Admin: 07/29/20 03:02 Dose: 50 mls/hr Documented by: Potassium Chloride 20 meq/ (Premix) 100 mls @ 50 mls/hr IV ONETIME ONE Stop: 07/28/20 12:19 Last Admin: 07/28/20 10:34 Dose: 50 mls/hr Documented by: Potassium Chloride 20 meq/ (Premix) 100 mls @ 50 mls/hr IV ONETIME ONE Stop: 07/28/20 18:59 Last Admin: 07/28/20 16:08 Dose: 50 mls/hr Documented by: Loperamide HCl (Loperamide 2 Mg Cap) 2 mg PO ASDIRECTED PRN PRN Reason: Diarrhea Lorazepam (Lorazepam 2 Mg/Ml Sdv) 1 mg IVPUSH Q2H PRN PRN Reason: Agitation Magnesium Chloride (Magnesium Chloride 64 Mg Tab.Er) 64 mg PO BID [facility] Last Admin: 07/28/20 20:33 Dose: Not Given Documented by: Megestrol Acetate (Megestrol Susp 40 Mg/Ml 10 Ml Ud Cup) 400 mg PO QAM [facility] Last Admin: 07/28/20 09:57 Dose: Not Given Documented by: Melatonin (Melatonin 3 Mg Tab) 3 mg PO BEDTIME [facility] Last Admin: 07/28/20 20:34 Dose: Not Given Documented by: Metoclopramide HCl (Metoclopramide 10 Mg/2 Ml Sdv) 5 mg IVPUSH ONETIME ONE Stop: 07/28/20 10:32 Last Admin: 07/28/20 10:57 Dose: 5 mg Documented by: Metoprolol Tartrate (Metoprolol Tartrate 25 Mg Tab) 25 mg PO BID [facility] Last Admin: 07/28/20 20:33 Dose: Not Given Documented by: Metoprolol Tartrate (Metoprolol Tartrate 50 Mg Tab) 50 mg PO ONETIME ONE Stop: 07/28/20 12:35 Last Admin: 07/28/20 12:42 Dose: 50 mg Documented by: Morphine Sulfate (Morphine 2 Mg/Ml Syringe) 2 mg IVPUSH Q1H PRN PRN Reason: Other Last Admin: 07/29/20 13:49 Dose: 2 mg Documented by: Nystatin (Nystatin Topical Powder 15 Gm Bottle) 0 gm TOP BID [facility] Last Admin: 07/30/20 09:06 Dose: 1 applic Documented by: Omeprazole (Omeprazole 20 Mg Cap.Cr) 20 mg PO ACBREAKFAST [facility] Last Admin: 07/28/20 07:21 Dose: 20 mg Documented by: Ondansetron HCl (Ondansetron 4 Mg Tab.Dis) 8 mg PO Q8H PRN PRN Reason: Nausea Last Admin: 07/28/20 18:39 Dose: 8 mg Documented by: Ondansetron HCl (Ondansetron 4 Mg/2 Ml Sdv) 4 mg IVPUSH ONETIME ONE Stop: 07/28/20 20:23 Last Admin: 07/28/20 20:30 Dose: 4 mg Documented by: Phytonadione (Phytonadione 10 Mg/1 Ml Amp) 5 mg PO ONETIME ONE Stop: 07/27/20 10:42 Last Admin: 07/27/20 11:33 Dose: 5 mg Documented by: Polyethylene Glycol (Polyethylene Glycol 3350 Powder 17 Gm Packet) 17 gm PO DAILY PRN PRN Reason: Constipation Last Admin: 07/27/20 20:23 Dose: 17 gm Documented by: Potassium Bicarbonate (Potassium Bicarbonate 25 Meq Tab.Eff) 25 meq PO ONETIME ONE Stop: 07/27/20 10:38 Last Admin: 07/27/20 11:33 Dose: 25 meq Documented by: Potassium Bicarbonate (Potassium Bicarbonate 25 Meq Tab.Eff) 25 meq PO ONETIME ONE Stop: 07/27/20 17:01 Last Admin: 07/27/20 17:49 Dose: 25 meq Documented by: Potassium Chloride (Potassium Chloride 20 Meq Packet) 20 meq PO QAM [facility] Last Admin: 07/28/20 09:56 Dose: Not Given Documented by: Potassium Chloride (Potassium Chloride 20 Meq Packet) 40 meq PO ASDIRECTED [facility] Potassium Chloride (Potassium Chloride 20 Meq Packet) Confirm Administered Dose 40 meq .ROUTE .STK-MED ONE Stop: 07/26/20 21:31 Last Admin: 07/26/20 22:52 Dose: Not Given Documented by: Potassium Chloride (Potassium Chloride 20 Meq Packet) 40 meq PO ONETIME ONE Stop: 07/26/20 22:26 Last Admin: 07/26/20 21:15 Dose: 40 meq Documented by: Prochlorperazine Maleate (Prochlorperazine 5 Mg Tab) 10 mg PO Q6H PRN PRN Reason: Nausea Saliva Substitute (Saliva Substitute Oral [place] 120 Ml Bottle) 1 ml MUCMEM ASDIRECTED PRN PRN Reason: Other Last Admin: 07/29/20 13:52 Dose: 1 spray Documented by: Senna/Docusate Sodium (Docusate Sodium/Sennosides 50-8.6 Mg Tab) 1 tab PO BEDTIME [facility] Last Admin: 07/28/20 20:34 Dose: Not Given Documented by: Senna/Docusate Sodium (Docusate Sodium/Sennosides 50-8.6 Mg Tab) 1 tab PO DAILY PRN PRN Reason: Constipation Simvastatin (Simvastatin 20 Mg Tab) 40 mg PO BEDTIME [facility] Last Admin: 07/28/20 20:34 Dose: Not Given Documented by: Sodium Chloride (Sodium Chloride 1 Gm Tab) 1 gm PO BID [facility] Last Admin: 07/28/20 20:34 Dose: Not Given Documented by: Sodium Chloride (Sodium Chloride 0.9% 10 Ml Syringe) 10 ml FLUSH ASDIRECTED PRN PRN Reason: IV Use Last Admin: 07/29/20 13:49 Dose: 10 ml Documented by: Warfarin Sodium (Pharmacy To Dose - Warfarin) 1 dose .XX ASDIRECTED [facility] Warfarin Sodium (Warfarin 2.5 Mg Tab) 2.5 mg PO 1800 [facility] Last Admin: 07/28/20 18:32 Dose: 2.5 mg Documented by:
== END 2020-07-30 20:15 | disposition expired | DRG 683 ==
LOC: KA.ED 16:21 → UNDOADMOB 18:40 → KA.MS 18:40 → OBSVTOIN 07-28 09:37
PROVIDERS: ADMIT Nurse Practitioner Family; ATTEND Nurse Practitioner Family
DX: N17.9 Acute kidney failure, unspecified (principal); B96.20 Unspecified Escherichia coli [E. coli] as the cause of diseases classified elsewhere; N39.0 Urinary tract infection, site not specified; C18.9 Malignant neoplasm of colon, unspecified; I48.20 Chronic atrial fibrillation, unspecified; D84.9 Immunodeficiency, unspecified; K56.609 Unspecified intestinal obstruction, unspecified as to partial versus complete obstruction; C18.2 Malignant neoplasm of ascending colon; I13.0 Hypertensive heart and chronic kidney disease with heart failure and stage 1 through stage 4 chronic kidney disease, or unspecified chronic kidney disease; E87.1 Hypo-osmolality and hyponatremia; C78.7 Secondary malignant neoplasm of liver and intrahepatic bile duct; E86.0 Dehydration; Z66 Do not resuscitate; I48.91 Unspecified atrial fibrillation; Z51.5 Encounter for palliative care; H54.7 Unspecified visual loss; E87.6 Hypokalemia; I73.9 Peripheral vascular disease, unspecified; E11.51 Type 2 diabetes mellitus with diabetic peripheral angiopathy without gangrene; I50.9 Heart failure, unspecified; K21.9 Gastro-esophageal reflux disease without esophagitis; K52.9 Noninfective gastroenteritis and colitis, unspecified; N18.30 Chronic kidney disease, stage 3 unspecified; E11.22 Type 2 diabetes mellitus with diabetic chronic kidney disease; R32 Unspecified urinary incontinence; E66.9 Obesity, unspecified; D64.81 Anemia due to antineoplastic chemotherapy; E78.00 Pure hypercholesterolemia, unspecified; T45.1X5A Adverse effect of antineoplastic and immunosuppressive drugs, initial encounter; D70.2 Other drug-induced agranulocytosis; M19.90 Unspecified osteoarthritis, unspecified site; Z20.822 Contact with and (suspected) exposure to COVID-19; D64.9 Anemia, unspecified; E53.8 Deficiency of other specified B group vitamins; Z98.49 Cataract extraction status, unspecified eye; Z87.01 Personal history of pneumonia (recurrent); Z90.710 Acquired absence of both cervix and uterus; Z68.36 Body mass index [BMI] 36.0-36.9, adult; Z85.3 Personal history of malignant neoplasm of breast; Z79.01 Long term (current) use of anticoagulants; Z79.84 Long term (current) use of oral hypoglycemic drugs; Z79.899 Other long term (current) drug therapy; E61.1 Iron deficiency; R79.1 Abnormal coagulation profile; Z92.3 Personal history of irradiation
CPT/HCPCS: 36415; 36416; 51702; 71045; 71046; 74018; 80048; 80053; 80076; 81001; 83735; 84484; 85025; 85610; 87040; 87086; 87088; 87186; 96374; 99284; 99285-25; A9270-GY; G0378; J0696; J1940; J2270; J2405; J2765; J3430; J3480; J7030; U0002